=== PATIENT | male | born 1940 | race Caucasian/White ===

== ENCOUNTER 2017-05-26 06:40 | Emergency (ER) | payer MEDICARE, OTHER ==
[2017-05-26] MEDS ORDERED: Triple Antibiotic 0.94 gm Pkt TP ONE ×3 (07:06→11:33)
[2017-05-26] MEDS ORDERED: Triple Antibiotic 0.94 gm Pkt TP STA ×2 (07:14→11:23)
[2017-05-26] MEDS ORDERED: cefTRIAXone 1 GM in Sodium Chloride 0.9% 50 ML IV ONE (07:51)
[2017-05-26 08:11] LABS: % EOSINOPHILS 1.9 % (0.0-5.0); % LYMPHOCYTES 12.9 % (20.0-50.0); % MONOCYTES 7.1 % (2.0-10.0); % NEUTROPHILS 78.1 % (40.0-80.0); HEMATOCRIT 44.9 % (41.0-60); HEMOGLOBIN 15.1 gm/dL (12-16); MEAN CORPUSCULAR HEMOGLOBIN 29.3 pg (27.0-31.0); MEAN CORPUSCULAR HGB CONC 33.7 pg (28.0-36.0); MEAN PLATELET VOLUME 8.1 fl; NEUTROPHILE ABSOLUTE 4.5 Th/cmm (1.8-8.0); PLATELET COUNT 155 Th/cmm (150-400); RED BLOOD COUNT 5.16 Mil/cmm (3.80-5.80); RED CELL DISTRIBUTION WIDTH 13.4 % (11.5-20.0); WHITE BLOOD COUNT 5.7 Th/cmm (4.8-10.8)
[2017-05-26 08:16] LABS: INR 0.92 (0.5-1.4); PROTHROMBIN TIME (TEST) 9.6 SECONDS (9.5-11.5)
--- NOTE | 2017-05-26 08:31 | Diagnostic Imaging Report ---
CHEST X-RAY: AP view INDICATION: pain COMPARISON: None FINDINGS: There is incomplete visualization of the left costophrenic angle. There is no focal consolidation or pleural effusions The heart is normal in size. The osseous structures demonstrate no acute abnormalities. IMPRESSION: No focal airspace consolidation identified.
[2017-05-26 08:37] LABS: ALB/GLOB RATIO 1.8 (1.0-1.8); ALKALINE PHOSPHATASE 78 U/L (34-104); ANION GAP 8.9 (7.0-16.0); BILIRUBIN,TOTAL 0.8 mg/dL (0.3-1.0); BUN - UREA NITROGEN 19 mg/dL (7-25); BUN/CREATININE RATIO 17.3; CALCIUM SERUM 9.3 mg/dL (8.6-10.3); CARBON DIOXIDE 28.3 mEq/L (21.0-31.0); CHLORIDE 106 mEq/L (98-107); CHOLESTEROL 181 mg/dL (<200); CREATININE - SERUM 1.1 mg/dL (0.7-1.3); GLUCOSE 107 mg/dL (70-105); POTASSIUM SERUM 4.2 mEq/L (3.5-5.1); SGOT 32 U/L (13-39); SGPT/ALT 28 U/L (7-52); SODIUM SERUM 139 mEq/L (136-145); TRIGLYCERIDES 103 mg/dL (<150)
[2017-05-26 09:38] LABS: CREATINE KINASE MB 8.7 ng/mL (0.6-6.3)
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
--- NOTE | 2017-05-26 09:56 | Diagnostic Imaging Report ---
CT scan of the brain without intravenous contrast HISTORY: Headache, trauma Total DLP equals 548 CTDI equals 31.4 Axial sections were obtained from the base of the skull to the vertex. There is prominence/enlargement of the ventricular system size. Associated enlargement of cerebral sulci and subarachnoid cisterns. Findings are consistent with changes of generalized cerebral atrophy. No acute parenchymal abnormalities. No acute cerebral hemorrhage. Bilateral basal ganglia calcification noted. Hypodensity is seen within the supratentorial white matter regions without mass effect. The findings may be associated with chronic small vessel ischemic disease. No extra-axial masses or abnormal fluid collections. Atherosclerotic calcification is seen within the region of the vertebral and basilar arteries at the base of the skull. IMPRESSION: 1. No acute abnormalities 2. Cerebral atrophy 3. Supratentorial white matter changes that may reflect chronic small vessel ischemic disease
--- NOTE | 2017-05-26 09:57 | Diagnostic Imaging Report ---
CT scan cervical spine HISTORY: Pain, trauma Total DLP equals 523 CTDI equals 23.1 Axial sections were obtained through the cervical spine. Additional sagittal and coronal reformatted images are provided. No acute abnormalities. No fractures. Degenerative changes are noted with hypertrophic spur formation noted about the endplates of C4 and to a greater degree C5, C6, and C7. Narrowing of the C5-6 and C6-7 interspaces. Degenerative changes noted about the odontoid process. The prevertebral soft tissues appear normal. IMPRESSION: 1. No acute abnormalities 2. Degenerative changes
== END 2017-05-26 12:27 | disposition short-term general hospital (02) ==
LOC: ER 06:40
DX: S01.01XA Laceration without foreign body of scalp, initial encounter (principal); S01.311A Laceration without foreign body of right ear, initial encounter; R42 Dizziness and giddiness; I10 Essential (primary) hypertension; N20.0 Calculus of kidney; W22.8XXA Striking against or struck by other objects, initial encounter; Y93.89 Activity, other specified; Y92.89 Other specified places as the place of occurrence of the external cause; Y99.8 Other external cause status
CPT/HCPCS: 99285; 96365; 12002; 12013; 94760; 93005; 71010; 70450; 72125; 84484; 83880; 36415; 85025; 85610; 82550; 82553; 80053; 80061; 90715; J0696 ×2; A4217; J2001; Z7610

== ENCOUNTER 2017-09-30 21:37 | Inpatient (IN) | payer MEDICARE ==
[2017-09-30] MEDS ORDERED: Sodium Chloride 0.9% 1,000 ML IV ONE (22:07)
[2017-09-30] MEDS ORDERED: HYDROmorphone 1 mg/mL 1mL Syr IVP STA (22:09)
[2017-09-30] MEDS ORDERED: HYDROmorphone 1 mg/mL 1mL Syr ONE (22:15)
--- NOTE | 2017-09-30 22:15 | ED Physician Chart ---
ED Chief Complaint/HPI - Patient Information Date Seen:: 09/30/17 Time Seen:: 22:00 Chief Complaint:: abdominal pain History of Present Illness:: At 1400 patient developed mid abdominal pain and bloating. His pain at its maximum was 8 out of 10 and is now 5 out of 10. Patient had a normal bowel movement at 1600. He has had no vomiting or diarrhea. He is not nauseated now. Pain is increased by walking. Allergies:: Allergies Allergy/AdvReac Type Severity Reaction Status Date / Time No Known Allergies Allergy Verified 09/30/17 21:46 Vitals:: Vital Signs - 8 hr 09/30/17 21:40 Temp 98.1 F HR 79 RR 20 BP 107/64 O2 Sat % 96 Historian:: Patient Review:: Nurse's Note Reviewed ED Review of Systems - Review of Systems General/Constitutional: No fever, No chills Skin: No skin lesions Head: No headache Eyes: No loss of vision ENT: No earache Neck: No neck pain, No swelling Cardio Vascular: No chest pain, No palpitations Pulmonary: No SOB GI: No nausea, No vomiting, No diarrhea, Pain G/U: No dysuria, No hematuria Musculoskeletal: No bone or joint pain Endocrine: No polydipsia Psychiatric: Prior psych history, No prior psych history Hematopoietic: Bruising Allergic/Immuno: No urticaria Neurological: No syncope, No focal symptoms ED Past Medical History - Past Medical History Past Medical History: No significant medical hx Family History: HTN Social History: Non Smoker, No Alcohol Surgical History: CABG, other (lithotrypsy) Psychiatricy History: None Family Medical History - Family Member Mother History Unknown: Yes Living Status: ED Physical Exam - Physical Examination General/Constitutional: Well-developed, well-nourished, Alert, No distress Head: Atraumatic Eyes: Lids, conjuctiva normal Skin: Nl inspection, No rash ENMT: External ears, nose nl, Lips, teeth, gums nl Neck: No nuchal rigidity Respiratory: Nl effort/Exclusion, Clear to Auscultation, No Wheeze/Rhonchi/Rales Cardio Vascular: RRR, No murmur, gallop, rubs GI: No organomegaly, No hernia, Normal BS's, Nondistended, No mass/bruits Other GI comments:: Right-sided abdominal tenderness maximum in the right lower quadrant with right lower quadrant rebound tenderness; mild left mid abdominal tenderness; LLQ tenderness with rebound Extremities: No edema Neuro/Psych: Alert/oriented, No focal deficits Misc: Normal back ED Labs/Radiology/EKG Results - Lab Results Comments:: Laboratory Results - last 24 hr 09/30/17 09/30/17 09/30/17 22:10 22:10 22:23 WBC 10.2 D RBC 5.16 Hgb 15.0 Hct 44.6 MCV 86.4 MCH 29.0 MCHC Differential 33.6 RDW 13.9 Plt Count 164 MPV 7.5 Band Neutrophils % 2 Neutrophils (Manual) 87 H Lymphocytes 7 L Monocytes 4 Platelet Estimate ADEQUATE PT 9.9 INR 0.95 PTT (Actin FS) 20.9 L Sodium 133 L Potassium 4.0 Chloride 100 Carbon Dioxide 25.9 Anion Gap 11.1 BUN 23 Creatinine 1.1 Est GFR ( Amer) TNP Est GFR (Non-Af Amer) TNP BUN/Creatinine Ratio 20.9 Glucose 138 H Calcium 8.9 Magnesium 1.6 L Lipase 8 L - Radiology Results Results: CT abdomen and pelvis: Acute perforated sigmoid diverticulitis with free air in the upper abdomen. Severe right hydronephrosis. CXR negative - EKG Interpretations Rate & Rhythm: normal sinus rhythm with a rate of 81 [place]: normal Comments:: 2 flattening in lateral leads ED Assessment - Assessment General Assessment: I talked to . Dr. Rojas will be the admitting physician. I then talked to Dr. Graf who will be the practice consultant ED Septic Shock - . Is Septic Shock (SBP<90, OR Lactate>4 mmol\L) present?: No - <6hrs of presentation: Vital Signs: Vital Signs - 8 hr 09/30/17 21:40 Temp 98.1 F HR 79 RR 20 BP 107/64 O2 Sat % 96 ED Reassessment (Disposition) - Reassessment Reassessment Condition:: Improved - Patient Disposition Admitted to:: Telemetry Admitting Medical Physician:: Vadim Rojas Condition at Disposition:: Stable, Improved
[2017-09-30 22:17] LABS: HEMATOCRIT 44.6 % (41.0-60); MANUAL DIFF REQUIRED? YES; MEAN CELL VOLUME 86.4 fl (80-99); MEAN CORPUSCULAR HGB CONC 33.6 pg (28.0-36.0); MEAN PLATELET VOLUME 7.5 fl; PLATELET COUNT 164 Th/cmm (150-400); RED BLOOD COUNT 5.16 Mil/cmm (3.80-5.80); RED CELL DISTRIBUTION WIDTH 13.9 % (11.5-20.0)
[2017-09-30 22:20] LABS: WHITE BLOOD COUNT 10.2 Th/cmm (4.8-10.8)
[2017-09-30 22:39] LABS: INR 0.95 (0.5-1.4); PROTHROMBIN TIME (TEST) 9.9 SECONDS (9.5-11.5)
[2017-09-30 22:40] LABS: ANION GAP 11.1 (7.0-16.0); BUN - UREA NITROGEN 23 mg/dL (7-25); CALCIUM SERUM 8.9 mg/dL (8.6-10.3); CARBON DIOXIDE 25.9 mEq/L (21.0-31.0); CHLORIDE 100 mEq/L (98-107); CREATININE - SERUM 1.1 mg/dL (0.7-1.3); GLUCOSE 138 mg/dL (70-105); LIPASE 8 U/L (11-82); MAGNESIUM 1.6 mg/dL (1.9-2.7); SODIUM SERUM 133 mEq/L (136-145)
[2017-09-30 22:47] LABS: BAND NEUTROPHILE 2 % (0-10); LYMPHOCYTE 7 % (20-50); MONOCYTE 4 % (2-10); NEUTROPHILS 87 % (40-80); PLATELET ESTIMATE ADEQUATE (NORMAL); TOTAL CELLS COUNTED 100
[2017-09-30] MEDS ORDERED: Mag Sulfate 2gm/50mL Premix 2 GM/50 ML BAG IV ONE ×2 (23:03→23:06)
[2017-09-30] MEDS ORDERED: metroNIDAZOLE 500mg/NS 100mL 500 MG/100 ML BAG IV ONE ×2 (23:22→23:47)
[2017-09-30] MEDS ORDERED: Piperacillin Sodium/Tazobact 3.375 gm Vial IV ONE (23:47)
[2017-10-01] MEDS ORDERED: D5-0.9%NS 1,000 ML IV ONE (00:40)
[2017-10-01] MEDS: D5-0.9%NS 1,000 ML IV SCH ×2 (01:15→14:22)
[2017-10-01 03:07] VITALS: BP 142/66
[2017-10-01] MEDS: Morphine Sulfate 2 mg/mL 1mL Syr IVP PRN ×3 (03:51→22:40)
[2017-10-01] MEDS ORDERED: metroNIDAZOLE 500mg/NS 100mL 500 MG/100 ML BAG IV ONE (04:06)
[2017-10-01] MEDS: metroNIDAZOLE 500mg/NS 100mL 500 MG in Premix Fluid 1 BAG IV SCH ×3 (04:33→21:10)
[2017-10-01 06:31] LABS: URINE MICROSCOPIC INDICATED? YES; URINE SOURCE RANDOM
[2017-10-01 06:42] LABS: URINE BILIRUBIN NEGATIVE (NEGATIVE); URINE BLOOD NEGATIVE (NEGATIVE); URINE GLUCOSE (UA) NEGATIVE (NEGATIVE); URINE KETONE NEGATIVE (NEGATIVE); URINE LEUKOCYTE ESTERASE NEGATIVE (NEGATIVE); URINE NITRATE NEGATIVE (NEGATIVE); URINE PH 5.5 (4.6 - 8.0); URINE PROTEIN NEGATIVE (NEGATIVE); URINE UROBILINOGEN 0.2 E.U./dL (0.2 - 1.0)
[2017-10-01 06:44] LABS: URINE CLARITY CLEAR (CLEAR); URINE COLOR YELLOW
[2017-10-01 06:47] LABS: URINE BACTERIA OCCASIONAL /hpf (NONE SEEN); URINE EPITHELIAL CELLS FEW /lpf (FEW); URINE RBC 0-2 /hpf (0-5); URINE WBC 0-2 /hpf (0-5)
--- NOTE | 2017-10-01 07:58 | Diagnostic Imaging Report ---
Portable chest x-ray Time: 2240 hours History: Pain Allowing for portable technique the heart size is normal. No focal pulmonary parenchymal processes. No hilar or mediastinal abnormalities. Impression: No acute abnormalities.
--- NOTE | 2017-10-01 08:09 | Diagnostic Imaging Report ---
Exam: CT examination abdomen pelvis. HISTORY: Appendicitis. Total DLP equals 439 CTDI equals 9.2 Findings: Multiple contiguous thin section of the abdomen pelvis obtained from lower thorax to pubic symphysis without the administration of contrast material. No prior studies available comparison. The study demonstrates normal aeration of the lung parenchyma the bases The liver and spleen intact. The pancreas is normal. The gallbladder is distended. There is evidence of bilateral nephrolithiasis with right-sided hydronephrosis with abrupt transition at the ureteropelvic junction might represent obstruction or stricture. There is evidence of punctate free air collection in the left lower abdomen. The appendix is not visualized. There is evidence of diverticulosis and diverticulitis of sigmoid colon the extraluminal air collection suggestive of perforation. Small amount of free air is noted in the upper abdomen. Uterine bladder is intact. Bony structures demonstrate no evidence evidence for lytic or blastic process. IMPRESSION: 1. Diverticulitis of sigmoid colon with possible perforation and free collection of air in the upper and mid abdomen. 2. Severe right-sided hydronephrosis. 3. Bilateral nephrolithiasis.
--- NOTE | 2017-10-01 08:46 | General Progress Note ---
Subjective - Review of Systems Service Date: 10/01/17 Events since last encounter: consult dictated informed consent discussed with patient regarding CT scan report Plan: exp lap with possible sigmoid resection, diverting colostomy or ileostomy Objective - Results Result Diagrams: 09/30/17 22:10 09/30/17 22:10 Recent Labs: Laboratory Last Values WBC 10.2 Th/cmm (4.8-10.8) D 09/30/17 22:10 RBC 5.16 Mil/cmm (3.80-5.80) 09/30/17 22:10 Hgb 15.0 gm/dL (12-16) 09/30/17 22:10 Hct 44.6 % (41.0-60) 09/30/17 22:10 MCV 86.4 fl (80-99) 09/30/17 22:10 MCH 29.0 pg (27.0-31.0) 09/30/17 22:10 MCHC Differential 33.6 pg (28.0-36.0) 09/30/17 22:10 RDW 13.9 % (11.5-20.0) 09/30/17 22:10 Plt Count 164 Th/cmm (150-400) 09/30/17 22:10 MPV 7.5 fl 09/30/17 22:10 Band Neutrophils % 2 % (0-10) 09/30/17 22:10 Neutrophils (Manual) 87 % (40-80) H 09/30/17 22:10 Lymphocytes 7 % (20-50) L 09/30/17 22:10 Monocytes 4 % (2-10) 09/30/17 22:10 Platelet Estimate ADEQUATE (NORMAL) 09/30/17 22:10 PT 9.9 SECONDS (9.5-11.5) 09/30/17 22:23 INR 0.95 (0.5-1.4) 09/30/17 22:23 PTT (Actin FS) 20.9 SECONDS (26.0-38.0) L 09/30/17 22:23 Sodium 133 mEq/L (136-145) L 09/30/17 22:10 Potassium 4.0 mEq/L (3.5-5.1) 09/30/17 22:10 Chloride 100 mEq/L (98-107) 09/30/17 22:10 Carbon Dioxide 25.9 mEq/L (21.0-31.0) 09/30/17 22:10 Anion Gap 11.1 (7.0-16.0) 09/30/17 22:10 BUN 23 mg/dL (7-25) 09/30/17 22:10 Creatinine 1.1 mg/dL (0.7-1.3) 09/30/17 22:10 Est GFR ( Amer) TNP 09/30/17 22:10 Est GFR (Non-Af Amer) TNP 09/30/17 22:10 BUN/Creatinine Ratio 20.9 09/30/17 22:10 Glucose 138 mg/dL (70-105) H 09/30/17 22:10 Calcium 8.9 mg/dL (8.6-10.3) 09/30/17 22:10 Magnesium 1.6 mg/dL (1.9-2.7) L 09/30/17 22:10 Lipase 8 U/L (11-82) L 09/30/17 22:10 Urine Source RANDOM 10/01/17 06:06 Urine Color YELLOW 10/01/17 06:06 Urine Clarity CLEAR (CLEAR) 10/01/17 06:06 Urine pH 5.5 (4.6 - 8.0) 10/01/17 06:06 Ur Specific [place] 1.020 (1.005-1.030) 10/01/17 06:06 Urine Protein NEGATIVE mg/dL (NEGATIVE) 10/01/17 06:06 Urine Glucose (UA) NEGATIVE mg/dL (NEGATIVE) 10/01/17 06:06 Urine Ketones NEGATIVE mg/dL (NEGATIVE) 10/01/17 06:06 Urine Blood NEGATIVE (NEGATIVE) 10/01/17 06:06 Urine Nitrate NEGATIVE (NEGATIVE) 10/01/17 06:06 Urine Bilirubin NEGATIVE (NEGATIVE) 10/01/17 06:06 Urine Urobilinogen 0.2 E.U./dL (0.2 - 1.0) 10/01/17 06:06 Ur Leukocyte Esterase NEGATIVE (NEGATIVE) 10/01/17 06:06 Urine RBC 0-2 /hpf (0-5) H 10/01/17 06:06 Urine WBC 0-2 /hpf (0-5) 10/01/17 06:06 Ur Epithelial Cells FEW /lpf (FEW) 10/01/17 06:06 Urine Bacteria OCCASIONAL /hpf (NONE SEEN) 10/01/17 06:06 Urine Mucus FEW /lpf (FEW) 10/01/17 06:06 - Physical Exam Vitals and I&O: Vital Signs Temp 99.2 F 10/01/17 07:37 Pulse 92 10/01/17 07:37 Resp 17 10/01/17 07:37 BP 119/64 10/01/17 07:37 Pulse Ox 95 10/01/17 07:37 Intake & Output 09/30/17 10/01/17 10/01/17 18:59 06:59 18:59 Weight (lbs) 76.005 kg Other: Stool Characteristics Formed Active Medications: Current Medications Metronidazole 500 mg/ (Miscellaneous) 100 mls @ 100 mls/hr IV Q8HR FLAVIO Stop: 11/30/17 04:59 Last Admin: 10/01/17 04:33 Dose: 100 mls/hr Piperacillin Sod/Tazobactam (Sod 4.5 gm/ Sodium Chloride) 100 mls @ 100 mls/hr IV Q8HR FLAVIO Stop: 11/30/17 04:59 Last Admin: 10/01/17 06:08 Dose: 100 mls/hr Dextrose/Sodium Chloride (D5-0.9%Ns) 1,000 mls @ 100 mls/hr IV .Q10H FLAVIO Stop: 11/30/17 00:59 Last Admin: 10/01/17 01:15 Dose: 100 mls/hr Morphine Sulfate (Morphine) 2 mg IVP Q2H PRN PRN Reason: Abdominal Pain Stop: 11/30/17 00:39 Last Admin: 10/01/17 03:51 Dose: 2 mg
--- NOTE | 2017-10-01 09:52 | Consultation ---
DATE OF CONSULTATION: 10/01/2017 SURGICAL CONSULTATION REFERRING PHYSICIAN: Dr. Rojas. REASON FOR CONSULTATION: Abdominal pain. Thank you for referring this patient to me. HISTORY OF PRESENT ILLNESS: This is a 76-year-old male who came in last night because of severe abdominal pain. Pain was mostly in lower abdomen. Afternoon before he came to the Emergency Room, he complained of discomfort on the way home from a drive in [place] to his home in [place]. The pain became severe and he had some chills and his brother drove him home. He denies previous similar history, although he does have a previous episode of kidney stones treated by lithotripsy. Otherwise, he takes a medication for anxiety, but no other. On admission, the laboratory studies show the CBC and chemistry to be normal. A CT scan, however, showed findings consistent with a perforated diverticulitis in the sigmoid region with a small amount of free air in the upper abdomen, diverticulosis with diverticulitis in the sigmoid colon with the extraluminal air collection. PHYSICAL EXAMINATION: GENERAL: The patient is well oriented. He has just been medicated with narcotics and there remains tenderness in the left and right lower quadrants of the abdomen with moderate rebound. Otherwise, the abdomen is flat and soft. RECOMMENDATIONS: The patient was told about his diagnosis and the recommended treatment, which is an exploration, possible resection of the areas of diverticulosis and diverticulitis and a possible reanastomosis. The chance of colostomy was discussed with him and he has agreed to this as well. The patient is on Zosyn now and Flagyl. We will take to surgery as soon as possible. JOB# [id number]
[2017-10-01] MEDS ORDERED: Propofol 10 mg/mL 20mL Vial **SURGERY USE ONLY IV ONE (11:00)
[2017-10-01] MEDS ORDERED: HYDROmorphone 1 mg/mL 1mL Syr ONE ×2 (11:12→13:44)
[2017-10-01 14:46] LABS: % BASOPHILS 0.2 % (0.0-2.0); % EOSINOPHILS 0.1 % (0.0-5.0); % LYMPHOCYTES 5.9 % (20.0-50.0); % MONOCYTES 3.9 % (2.0-10.0); % NEUTROPHILS 89.9 % (40.0-80.0); HEMOGLOBIN 13.1 gm/dL (12-16); LYMPHOCYTE ABSOLUTE 0.6 Th/cmm (1.5-3.0); MEAN CELL VOLUME 87.2 fl (80-99); MEAN CORPUSCULAR HEMOGLOBIN 28.8 pg (27.0-31.0); MEAN PLATELET VOLUME 7.6 fl; MONOCYTE ABSOLUTE 0.4 Th/cmm (0.3-1.0); NEUTROPHILE ABSOLUTE 8.7 Th/cmm (1.8-8.0); PLATELET COUNT 138 Th/cmm (150-400); RED BLOOD COUNT 4.55 Mil/cmm (3.80-5.80); RED CELL DISTRIBUTION WIDTH 13.5 % (11.5-20.0); WHITE BLOOD COUNT 9.7 Th/cmm (4.8-10.8)
[2017-10-01 14:53] LABS: HEMATOCRIT 39.7 % (41.0-60)
[2017-10-01] MEDS ORDERED: Ipratropium Neb 0.5 mg/2.5 mL UD IH PRN (15:25)
[2017-10-01] MEDS ORDERED: Albuterol Nebulizer 2.5mg/3mL HHN PRN (15:25)
[2017-10-01] MEDS ORDERED: Albuterol/Ipratropium Neb 3 ML AERS HHN PRN (15:32)
--- NOTE | 2017-10-01 16:40 | Consultation ---
DATE OF CONSULTATION: 10/01/2017 UROLOGY CONSULTATION REASON FOR CONSULTATION: Seen for right hydronephrosis. HISTORY OF PRESENT ILLNESS: The patient is a 76-year-old gentleman, who was admitted with abdominal pain and found to have perforated diverticulitis. He has just come out of surgery, which was diverting colostomy. At the same time, the CT scan showed severe right hydronephrosis without any stones, but with possible UPJ obstruction and a nonobstructing stone in the left side size 2-3 mm. The patient is in recovery, unable to provide much history, and there were no family members at this time. REVIEW OF SYSTEMS: Came in without fever or chills, skin problems, no joint pains. Denied headache or seizures. No chest pain, coughing, or shortness of breath. Abdominal pain was severe, but without any vomiting or diarrhea. HOME MEDICATIONS: Prozac only. ALLERGIES: None. PAST SURGICAL HISTORY: The patient had a coronary bypass procedure and stone out surgery with lithotripsy. FAMILY HISTORY: Positive for hypertension, unknown for stone. SOCIAL HISTORY: Denies smoking, alcohol, or drug use. PHYSICAL EXAMINATION: GENERAL: The patient is in the recovery room, come out of anesthesia, still drowsy. VITAL SIGNS: Temperature 98.9 earlier today, heart rate 90, blood pressure 147/74, preop. HEAD AND NECK: Normocephalic. Trachea central. Pupils equal and reactive. No jaundice. Thyroid and lymph nodes not palpable. Carotid bruit absent. CHEST: Symmetrical. LUNGS: Clear. No rales or rhonchi. HEART: Sounds normal in sinus rhythm, no murmur. ABDOMEN: Post-surgical, difficult to examine. EXTREMITIES: No edema or lymphadenopathy. NEUROLOGIC: Nonfocal. LABS: CT scan shows a severe right hydronephrosis. Sodium 133, BUN 23, creatinine 1.1, magnesium 1.6. PT/INR 0.9. White count 10.2, hemoglobin 15, platelets 164. Urinalysis, no evidence of infection, blood, or abnormalities of any kind. CT scan also showed perforated diverticulosis. IMPRESSION: 1. History of bilateral stone disease, possibly surgical treatment in the past. Presently, right hydronephrosis may be congenital at the ureteropelvic junction or acquired from stone disease and surgery. He has normal renal function. 2. Diverticulitis with perforation, now with a diverting colostomy. RECOMMENDATIONS: Recommend no active treatment at this point. We will obtain more urologic details once he is awake and alert and from his family members to decide if the right-sided hydronephrosis requires stent or surgery or simple observation. This can also be determined with the help of a nuclear Lasix scan. JOB# [id number]
--- NOTE | 2017-10-01 16:51 | Operative Report ---
DATE OF SURGERY: 10/01/2017 PREOPERATIVE DIAGNOSES: 1. Perforated sigmoid diverticulitis. 2. Ureteral stone. POSTOPERATIVE DIAGNOSES: 1. Perforated sigmoid diverticulitis. 2. Ureteral stone. OPERATION DONE: Exploratory laparotomy with: 1. Resection of sigmoid colon. 2. Gerald's pouch. 3. Diverting colostomy. 4. Abdominal washout. SURGEON: Ben Graf M.D. ANESTHESIA: General : Deo ESTIMATED BLOOD LOSS: 50 mL. INDICATIONS FOR SURGERY: The patient with perforated diverticulitis on a CT scan. Additional information includes the patient having had a history of kidney stones and on this CT scan, which shows bilateral nephrolithiasis with right-sided hydronephrosis and a transition at the ureteropelvic junction, probably with obstruction. Informed consent discussed with the patient and the brother about the need for the exploration and the surgery. Depending on the findings, might do anastomosis and/or diverting colostomy or ileostomy. OPERATIVE FINDINGS: Perforation in the sigmoid colon with diverticular disease extending into the descending colon and to the promontory of the sacrum. This section was removed about a foot in length. Because of the gross contamination, it was decided not to do a primary anastomosis for fear because of the higher incidence of anastomotic leak. Cultures were taken. PROCEDURE: The patient was given general anesthesia. The abdomen was prepped with Betadine and draped in appropriate manner. A lower abdominal incision below this umbilicus to the suprapubic area was done. A Szymanski catheter is in place. The incision was carried all the way into the intraabdominal cavity. There was purulent drainage in the pelvic area at site of the sigmoid perforation and photograph was taken. The diverticular disease extending to the mid descending colon and to the promontory of the sacrum. A ELADIA instrument was used to transect the distal sigmoid and the distal end. Staple line was reinforced with 3-0 silk. With the use of an Impact instrument, the mesentery was transected until the limit of the upper diverticular disease. The descending colon was then transected and the descending colon end was brought out as a colostomy in the left lower quadrant of the abdomen. Wash out with antibiotic solution was carried out. A Jairo-Wray drain was left in the pelvis. The colon was sutured to the anterior abdominal wall utilizing 3-0 silk and the lateral margins of the mesentery were sutured to the anterior abdominal wall and laterally utilizing 3-0 silk to prevent internal herniation. The abdominal incision was closed with running suture of #1 PDS. The subcutaneous tissues were closed with 3-0 Vicryl and the skin with 4-0 Vicryl. Dermabond was placed over this. The colostomy was matured utilizing everting suture of 4-0 Vicryl. A colostomy bag was placed over this. The patient tolerated the procedure well. In view of the right ureteral obstruction, urology consultation, Dr. Barros has been ordered. JOB# [id number] [facility]
--- NOTE | 2017-10-01 22:20 | History & Physical ---
ADMIT DATE: 10/01/2017 CHIEF COMPLAINT: Abdominal pain. HISTORY OF PRESENT ILLNESS: This is a 76-year-old male with history of blood pressure, not on medication and depression, was admitted secondary to acute onset of abdominal pain and discomfort. The patient got dizzy just about to pass out. The patient was brought in to the ER, a CT showed perforated bowel. The patient was taken to the Emergency Room for surgery. PAST MEDICAL HISTORY: As mentioned in history present illness. PAST SURGICAL HISTORY: Status post kidney surgery in the past. ALLERGIES: No known drug allergies. MEDICATIONS: Fluoxetine. FAMILY HISTORY: Denies diabetes or coronary artery disease. SOCIAL HISTORY: Never smoked. Occasional alcohol. No intravenous drug use. 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 REVIEW OF SYSTEMS: GENERAL: The patient denies any ____ symptoms prior to being sick. HEENT: No blurred vision. LUNGS: No diagnosis of COPD or asthma. HEART: Denies hypertension or coronary artery disease. ABDOMEN: As mentioned above. NEUROLOGIC: No headache, seizure or syncope. PSYCHIATRIC: As stated above, the patient with depression. PHYSICAL EXAMINATION: VITAL SIGNS: Blood pressure 147/74, respirations 18, pulse 90, temperature 99. GENERAL: Elderly male, appears stated age. NECK: Supple. No mass. LUNGS: Equal breath sounds, few rhonchi. HEART: Regular rate and rhythm. Systolic ejection murmur. ABDOMEN: Soft, globular. Positive colostomy. EXTREMITIES: Positive excoriations. LABORATORY DATA: WBC 9.7, hemoglobin 13, platelets 138. INR 0.9. Sodium 133, potassium 4.0, BUN 22, creatinine 1.1, and magnesium 1.6. ASSESSMENT AND PLAN: Abdominal pain, perforated bowel, status post resection and colostomy, ____, positive for kidney stone, hyponatremia, thrombocytopenia. We will continue the patient on IV antibiotic, IV hydration, IV pain medication. Surgery is following. We also referred the patient to Urology. Continue with current care with followup consult recommendations. Case was discussed with the family and agreed. JOB# [id number]
[2017-10-02] MEDS: D5-0.9%NS 1,000 ML IV SCH ×2 (04:45→18:59)
[2017-10-02] MEDS: metroNIDAZOLE 500mg/NS 100mL 500 MG in Premix Fluid 1 BAG IV SCH ×3 (05:37→21:41)
[2017-10-02 06:05] LABS: % BASOPHILS 0.3 % (0.0-2.0); % EOSINOPHILS 0.8 % (0.0-5.0); % LYMPHOCYTES 9.6 % (20.0-50.0); % MONOCYTES 4.4 % (2.0-10.0); % NEUTROPHILS 84.9 % (40.0-80.0); EOSINOPHILE ABSOLUTE 0.1 Th/cmm (0.1-0.4); HEMATOCRIT 38.7 % (41.0-60); HEMOGLOBIN 13.1 gm/dL (12-16); LYMPHOCYTE ABSOLUTE 0.6 Th/cmm (1.5-3.0); MEAN CELL VOLUME 88.1 fl (80-99); MEAN CORPUSCULAR HEMOGLOBIN 29.7 pg (27.0-31.0); MEAN CORPUSCULAR HGB CONC 33.8 pg (28.0-36.0); MEAN PLATELET VOLUME 7.7 fl; MONOCYTE ABSOLUTE 0.3 Th/cmm (0.3-1.0); NEUTROPHILE ABSOLUTE 5.5 Th/cmm (1.8-8.0); PLATELET COUNT 125 Th/cmm (150-400); RED CELL DISTRIBUTION WIDTH 13.9 % (11.5-20.0)
[2017-10-02 06:29] LABS: WHITE BLOOD COUNT 6.5 Th/cmm (4.8-10.8)
[2017-10-02 06:54] LABS: ALB/GLOB RATIO 1.5 (1.0-1.8); ALBUMIN 3.2 gm/dL (4.2-5.5); ALKALINE PHOSPHATASE 63 U/L (34-104); ANION GAP 8.3 (7.0-16.0); BILIRUBIN,TOTAL 0.7 mg/dL (0.3-1.0); BUN - UREA NITROGEN 14 mg/dL (7-25); CALCIUM SERUM 7.6 mg/dL (8.6-10.3); CARBON DIOXIDE 25.4 mEq/L (21.0-31.0); CHLORIDE 107 mEq/L (98-107); GLUCOSE 118 mg/dL (70-105); POTASSIUM SERUM 3.7 mEq/L (3.5-5.1); SGOT 17 U/L (13-39); SGPT/ALT 14 U/L (7-52); SODIUM SERUM 137 mEq/L (136-145); TOTAL PROTEIN,SERUM 5.4 gm/dL (6.0-8.3)
[2017-10-02] MEDS: Morphine Sulfate 2 mg/mL 1mL Syr IVP PRN ×5 (08:13→18:59)
--- NOTE | 2017-10-02 10:05 | General Progress Note ---
Subjective - Review of Systems Service Date: 10/02/17 Events since last encounter: labs noted clear liquids po complaining of right lower quadrant pain Urology consult noted Objective - Results Result Diagrams: 10/02/17 05:40 10/02/17 05:40 Recent Labs: Laboratory Last Values WBC 6.5 Th/cmm (4.8-10.8) D 10/02/17 05:40 RBC 4.40 Mil/cmm (3.80-5.80) 10/02/17 05:40 Hgb 13.1 gm/dL (12-16) 10/02/17 05:40 Hct 38.7 % (41.0-60) L 10/02/17 05:40 MCV 88.1 fl (80-99) 10/02/17 05:40 MCH 29.7 pg (27.0-31.0) 10/02/17 05:40 MCHC Differential 33.8 pg (28.0-36.0) 10/02/17 05:40 RDW 13.9 % (11.5-20.0) 10/02/17 05:40 Plt Count 125 Th/cmm (150-400) L 10/02/17 05:40 MPV 7.7 fl 10/02/17 05:40 Neutrophils % 84.9 % (40.0-80.0) H 10/02/17 05:40 Band Neutrophils % 2 % (0-10) 09/30/17 22:10 Lymphocytes % 9.6 % (20.0-50.0) L 10/02/17 05:40 Monocytes % 4.4 % (2.0-10.0) 10/02/17 05:40 Eosinophils % 0.8 % (0.0-5.0) 10/02/17 05:40 Basophils % 0.3 % (0.0-2.0) 10/02/17 05:40 Neutrophils (Manual) 87 % (40-80) H 09/30/17 22:10 Lymphocytes 7 % (20-50) L 09/30/17 22:10 Monocytes 4 % (2-10) 09/30/17 22:10 Platelet Estimate ADEQUATE (NORMAL) 09/30/17 22:10 PT 9.9 SECONDS (9.5-11.5) 09/30/17 22:23 INR 0.95 (0.5-1.4) 09/30/17 22:23 PTT (Actin FS) 20.9 SECONDS (26.0-38.0) L 09/30/17 22:23 Sodium 137 mEq/L (136-145) 10/02/17 05:40 Potassium 3.7 mEq/L (3.5-5.1) 10/02/17 05:40 Chloride 107 mEq/L (98-107) 10/02/17 05:40 Carbon Dioxide 25.4 mEq/L (21.0-31.0) 10/02/17 05:40 Anion Gap 8.3 (7.0-16.0) 10/02/17 05:40 BUN 14 mg/dL (7-25) 10/02/17 05:40 Creatinine 1.0 mg/dL (0.7-1.3) 10/02/17 05:40 Est GFR ( Amer) TNP 10/02/17 05:40 Est GFR (Non-Af Amer) TNP 10/02/17 05:40 BUN/Creatinine Ratio 14.0 10/02/17 05:40 Glucose 118 mg/dL (70-105) H 10/02/17 05:40 POC Glucose 133 MG/DL (70 - 105) H 10/01/17 09:17 Calcium 7.6 mg/dL (8.6-10.3) L 10/02/17 05:40 Magnesium 1.6 mg/dL (1.9-2.7) L 09/30/17 22:10 Total Bilirubin 0.7 mg/dL (0.3-1.0) 10/02/17 05:40 AST 17 U/L (13-39) 10/02/17 05:40 ALT 14 U/L (7-52) 10/02/17 05:40 Alkaline Phosphatase 63 U/L (34-104) 10/02/17 05:40 Total Protein 5.4 gm/dL (6.0-8.3) L 10/02/17 05:40 Albumin 3.2 gm/dL (4.2-5.5) L 10/02/17 05:40 Globulin 2.2 gm/dL 10/02/17 05:40 Albumin/Globulin Ratio 1.5 (1.0-1.8) 10/02/17 05:40 Lipase 8 U/L (11-82) L 09/30/17 22:10 Urine Source RANDOM 10/01/17 06:06 Urine Color YELLOW 10/01/17 06:06 Urine Clarity CLEAR (CLEAR) 10/01/17 06:06 Urine pH 5.5 (4.6 - 8.0) 10/01/17 06:06 Ur Specific [place] 1.020 (1.005-1.030) 10/01/17 06:06 Urine Protein NEGATIVE mg/dL (NEGATIVE) 10/01/17 06:06 Urine Glucose (UA) NEGATIVE mg/dL (NEGATIVE) 10/01/17 06:06 Urine Ketones NEGATIVE mg/dL (NEGATIVE) 10/01/17 06:06 Urine Blood NEGATIVE (NEGATIVE) 10/01/17 06:06 Urine Nitrate NEGATIVE (NEGATIVE) 10/01/17 06:06 Urine Bilirubin NEGATIVE (NEGATIVE) 10/01/17 06:06 Urine Urobilinogen 0.2 E.U./dL (0.2 - 1.0) 10/01/17 06:06 Ur Leukocyte Esterase NEGATIVE (NEGATIVE) 10/01/17 06:06 Urine RBC 0-2 /hpf (0-5) H 10/01/17 06:06 Urine WBC 0-2 /hpf (0-5) 10/01/17 06:06 Ur Epithelial Cells FEW /lpf (FEW) 10/01/17 06:06 Urine Bacteria OCCASIONAL /hpf (NONE SEEN) 10/01/17 06:06 Urine Mucus FEW /lpf (FEW) 10/01/17 06:06 - Physical Exam Vitals and I&O: Vital Signs Temp 99.4 F 10/02/17 07:51 Pulse 82 10/02/17 07:51 Resp 20 10/02/17 07:51 BP 146/70 10/02/17 07:51 Pulse Ox 98 10/02/17 07:51 Intake & Output 10/01/17 10/02/17 10/02/17 18:59 06:59 18:59 Intake Total 1550 1200 Output Total 380 Balance 1170 1200 Weight (lbs) 76.005 kg Intake: Intake, IV Amount 1300 1200 D5-0.9%Ns 1,000 ml @ 100 1000 1000 mls/hr IV .Q10H [facility] Rx#: [id number] Piperacillin Sodium/ 200 100 Tazobact 4.5 gm In Sodium Chloride 0.9% 100 ml @ 100 mls/hr IV Q8HR [facility] Rx #:[id number] metroNIDAZOLE 500mg/NS 100 100 100mL 500 mg In Premix Fluid 1 bag @ 100 mls/hr IV Q8HR [facility] Rx#:[id number] Oral 250 Output: Urine 350 Other 30 Other: # Voids 2 # Bowel Movements 0 Active Medications: Current Medications Acetaminophen (Tylenol) 650 mg PO Q4H PRN PRN Reason: Pain Or Fever above 101 Stop: 11/30/17 15:24 Albuterol/Ipratropium (Duoneb Neb) 3 ml HHN Q2HRT PRN PRN Reason: Shortness of Breath or Wheeze Stop: 11/30/17 15:31 Metronidazole 500 mg/ (Miscellaneous) 100 mls @ 100 mls/hr IV Q8HR [facility] Stop: 11/30/17 04:59 Last Admin: 10/02/17 05:37 Dose: 100 mls/hr Piperacillin Sod/Tazobactam (Sod 4.5 gm/ Sodium Chloride) 100 mls @ 100 mls/hr IV Q8HR [facility] Stop: 11/30/17 04:59 Last Admin: 10/02/17 06:27 Dose: 100 mls/hr Dextrose/Sodium Chloride (D5-0.9%Ns) 1,000 mls @ 100 mls/hr IV .Q10H [facility] Stop: 11/30/17 00:59 Last Admin: 10/02/17 04:45 Dose: 100 mls/hr Morphine Sulfate (Morphine) 2 mg IVP Q2H PRN PRN Reason: Abdominal Pain Stop: 11/30/17 00:39 Last Admin: 10/02/17 08:13 Dose: 2 mg Ondansetron HCl (Zofran) 4 mg IV Q8H PRN PRN Reason: Nausea / Vomiting Stop: 11/30/17 15:24 Zolpidem Tartrate (Ambien) 10 mg PO HS PRN PRN Reason: Insomnia Stop: 11/30/17 15:24
--- NOTE | 2017-10-02 10:20 | Consultation ---
Consult Note - Consult Note Service Date: 10/02/17 Referring Physician: Ben Graf Consult Note: PHYSICIAN Consultation Note: Date of Admission: 09/30/17 Purpose of Consultation: peritonitis, diverticulitis. right sided hydronephrosis. Chief Complaint: Patient DARRYL NORRIS was admitted to [facility] Telemetry with PERFORATED BOWEL History of Present Illness: 76 year male with history of HTN, depression, presented with abdominal pain. CT scan of the abdomen revealed perforated diveritcutlitis andright sided hydronephrosis. Zosyn was started and exploratory laparotomy was performed. ID consult was called for antibiotic management. . Past Medical History: Allergies Allergy/AdvReac Type Severity Reaction Status Date / Time No Known Allergies Allergy Verified 09/30/17 21:46 Vital Signs Temp 99.4 F 10/02/17 07:51 Pulse 82 10/02/17 07:51 Resp 20 10/02/17 07:51 BP 146/70 10/02/17 07:51 Pulse Ox 98 10/02/17 07:51 Intake & Output 10/01/17 10/02/17 10/02/17 18:59 06:59 18:59 Intake Total 1550 1200 Output Total 380 Balance 1170 1200 Weight (lbs) 76.005 kg Intake: Intake, IV Amount 1300 1200 D5-0.9%Ns 1,000 ml @ 100 1000 1000 mls/hr IV .Q10H [facility] Rx#: [id number] Piperacillin Sodium/ 200 100 Tazobact 4.5 gm In Sodium Chloride 0.9% 100 ml @ 100 mls/hr IV Q8HR [facility] Rx #:[id number] metroNIDAZOLE 500mg/NS 100 100 100mL 500 mg In Premix Fluid 1 bag @ 100 mls/hr IV Q8HR [facility] Rx#:[id number] Oral 250 Output: Urine 350 Other 30 Other: # Voids 2 # Bowel Movements 0 Laboratory Results - last 24 hr 10/01/17 10/02/17 10/02/17 14:37 05:40 05:40 WBC 9.7 6.5 D RBC 4.55 4.40 Hgb 13.1 13.1 Hct 39.7 L D 38.7 L MCV 87.2 88.1 MCH 28.8 29.7 MCHC Differential 33.0 33.8 RDW 13.5 13.9 Plt Count 138 L 125 L MPV 7.6 7.7 Neutrophils % 89.9 H 84.9 H Lymphocytes % 5.9 L 9.6 L Monocytes % 3.9 4.4 Eosinophils % 0.1 0.8 Basophils % 0.2 0.3 Sodium 137 Potassium 3.7 Chloride 107 Carbon Dioxide 25.4 Anion Gap 8.3 BUN 14 Creatinine 1.0 Est GFR ( Amer) TNP Est GFR (Non-Af Amer) TNP BUN/Creatinine Ratio 14.0 Glucose 118 H Calcium 7.6 L Total Bilirubin 0.7 AST 17 ALT 14 Alkaline Phosphatase 63 Total Protein 5.4 L Albumin 3.2 L Globulin 2.2 Albumin/Globulin Ratio 1.5 Home Medication Medication Instructions Recorded Type FLUoxetine HCL [PROzac] 10 mg PO DAILY 09/30/17 History Current Medications Generic Name Dose Route Start Last Admin Trade Name Freq PRN Reason Stop Dose Admin Acetaminophen 650 mg 10/01/17 15:25 Tylenol PO 11/30/17 15:24 Q4H PRN Pain Or Fever above 101 Albuterol/Ipratropium 3 ml 10/01/17 15:32 Duoneb Neb HHN 11/30/17 15:31 Q2HRT PRN Shortness of Breath or Wheeze Metronidazole 500 mg/ 100 mls @ 100 mls/hr 10/01/17 05:00 10/02/17 05:37 Miscellaneous IV 11/30/17 04:59 100 mls/hr Q8HR [facility] Administration Piperacillin Sod/Tazobactam 100 mls @ 100 mls/hr 10/01/17 05:00 10/02/17 06: 27 Sod 4.5 gm/ Sodium Chloride IV 11/30/17 04:59 100 mls/hr Q8HR [facility] Administration Dextrose/Sodium Chloride 1,000 mls @ 100 mls/hr 10/01/17 01:00 10/02/17 04:45 D5-0.9%Ns IV 11/30/17 00:59 100 mls/hr .Q10H [facility] Administration Morphine Sulfate 2 mg 10/01/17 00:40 10/02/17 08:13 Morphine IVP 11/30/17 00:39 2 mg Q2H PRN Administration Abdominal Pain Ondansetron HCl 4 mg 10/01/17 15:25 Zofran IV 11/30/17 15:24 Q8H PRN Nausea / Vomiting Zolpidem Tartrate 10 mg 10/01/17 15:25 Ambien PO 11/30/17 15:24 HS PRN Insomnia Review of Systems: A 12 point ROS was reviewed with the pertinent positive and negatives noted in the HPI. c/o pain in right lower abdomen. Social History Smoking Status Smoker, status unknown Alcohol Use No Family Medical History Family Medical History Start: 10/01/17 00: 02 Freq: ONCE Status: Active Document 10/01/17 00:02 SHAE (Rec: 10/01/17 05:25 SHAE [id number]) Family Medical History Mother History Unknown Yes Ethnicity Non- Living Status Hx Family Cancer No Hx Family Coronary Artery Disease No Hx Family Congestive Heart Failure No Hx Family Hypertension No Hx Family Stroke No Hx Family Diabetes No Hx Family Seizures No Hx Family Dementia No Hx Family AIDS No Hx Family HIV No Hx Family COPD No Hx Family Hepatitis No Hx Family Psychiatric Problems No Hx Family Tuberculosis No Physical Exam: General: comfortable, not in any acute distress HEENT: Head is normocephalic, atraumatic. oral cavity: moist pink tongue. Eyes: no pallor, no icterus. Neck: Supple, no JVD, no carotid bruit. Cardio: S1, S 2 WNL. Respiratory: CTAP. Abdominal: soft tender mainly in RLQ. surgical wound/incision intact, Luis drain X 1. Colostomy LLQ. Genital/Urinary: Extremities: NCCE Neurological: AAOx3. Assessment: 1. peritonitis 2/2 perforated diverticulitis. 2. Right sided hydronephrosis. 3. s/p exploratory laparotomy and colcotomy. Plan: Continue zosyn at this time. Thank you, Dr Graf and Dr davalos for invovling me in taking care of this patient. Signed, Arisa Weber M.D. [phone]
--- NOTE | 2017-10-02 15:37 | Internal Medicine Prog Note ---
Internal Medicine Subjective - Subjective Service Date: 10/02/17 Patient seen and examined:: with staff Patient is:: awake, verbal Per staff patient has:: no adverse event, tolerating meds Internal Medicine Objective - Results Result Diagrams: 10/02/17 05:40 10/02/17 05:40 Recent Labs: Laboratory Last Values WBC 6.5 Th/cmm (4.8-10.8) D 10/02/17 05:40 RBC 4.40 Mil/cmm (3.80-5.80) 10/02/17 05:40 Hgb 13.1 gm/dL (12-16) 10/02/17 05:40 Hct 38.7 % (41.0-60) L 10/02/17 05:40 MCV 88.1 fl (80-99) 10/02/17 05:40 MCH 29.7 pg (27.0-31.0) 10/02/17 05:40 MCHC Differential 33.8 pg (28.0-36.0) 10/02/17 05:40 RDW 13.9 % (11.5-20.0) 10/02/17 05:40 Plt Count 125 Th/cmm (150-400) L 10/02/17 05:40 MPV 7.7 fl 10/02/17 05:40 Neutrophils % 84.9 % (40.0-80.0) H 10/02/17 05:40 Band Neutrophils % 2 % (0-10) 09/30/17 22:10 Lymphocytes % 9.6 % (20.0-50.0) L 10/02/17 05:40 Monocytes % 4.4 % (2.0-10.0) 10/02/17 05:40 Eosinophils % 0.8 % (0.0-5.0) 10/02/17 05:40 Basophils % 0.3 % (0.0-2.0) 10/02/17 05:40 Neutrophils (Manual) 87 % (40-80) H 09/30/17 22:10 Lymphocytes 7 % (20-50) L 09/30/17 22:10 Monocytes 4 % (2-10) 09/30/17 22:10 Platelet Estimate ADEQUATE (NORMAL) 09/30/17 22:10 PT 9.9 SECONDS (9.5-11.5) 09/30/17 22:23 INR 0.95 (0.5-1.4) 09/30/17 22:23 PTT (Actin FS) 20.9 SECONDS (26.0-38.0) L 09/30/17 22:23 Sodium 137 mEq/L (136-145) 10/02/17 05:40 Potassium 3.7 mEq/L (3.5-5.1) 10/02/17 05:40 Chloride 107 mEq/L (98-107) 10/02/17 05:40 Carbon Dioxide 25.4 mEq/L (21.0-31.0) 10/02/17 05:40 Anion Gap 8.3 (7.0-16.0) 10/02/17 05:40 BUN 14 mg/dL (7-25) 10/02/17 05:40 Creatinine 1.0 mg/dL (0.7-1.3) 10/02/17 05:40 Est GFR ( Amer) TNP 10/02/17 05:40 Est GFR (Non-Af Amer) TNP 10/02/17 05:40 BUN/Creatinine Ratio 14.0 10/02/17 05:40 Glucose 118 mg/dL (70-105) H 10/02/17 05:40 POC Glucose 133 MG/DL (70 - 105) H 10/01/17 09:17 Calcium 7.6 mg/dL (8.6-10.3) L 10/02/17 05:40 Magnesium 1.6 mg/dL (1.9-2.7) L 09/30/17 22:10 Total Bilirubin 0.7 mg/dL (0.3-1.0) 10/02/17 05:40 AST 17 U/L (13-39) 10/02/17 05:40 ALT 14 U/L (7-52) 10/02/17 05:40 Alkaline Phosphatase 63 U/L (34-104) 10/02/17 05:40 Total Protein 5.4 gm/dL (6.0-8.3) L 10/02/17 05:40 Albumin 3.2 gm/dL (4.2-5.5) L 10/02/17 05:40 Globulin 2.2 gm/dL 10/02/17 05:40 Albumin/Globulin Ratio 1.5 (1.0-1.8) 10/02/17 05:40 Lipase 8 U/L (11-82) L 09/30/17 22:10 Urine Source RANDOM 10/01/17 06:06 Urine Color YELLOW 10/01/17 06:06 Urine Clarity CLEAR (CLEAR) 10/01/17 06:06 Urine pH 5.5 (4.6 - 8.0) 10/01/17 06:06 Ur Specific [place] 1.020 (1.005-1.030) 10/01/17 06:06 Urine Protein NEGATIVE mg/dL (NEGATIVE) 10/01/17 06:06 Urine Glucose (UA) NEGATIVE mg/dL (NEGATIVE) 10/01/17 06:06 Urine Ketones NEGATIVE mg/dL (NEGATIVE) 10/01/17 06:06 Urine Blood NEGATIVE (NEGATIVE) 10/01/17 06:06 Urine Nitrate NEGATIVE (NEGATIVE) 10/01/17 06:06 Urine Bilirubin NEGATIVE (NEGATIVE) 10/01/17 06:06 Urine Urobilinogen 0.2 E.U./dL (0.2 - 1.0) 10/01/17 06:06 Ur Leukocyte Esterase NEGATIVE (NEGATIVE) 10/01/17 06:06 Urine RBC 0-2 /hpf (0-5) H 10/01/17 06:06 Urine WBC 0-2 /hpf (0-5) 10/01/17 06:06 Ur Epithelial Cells FEW /lpf (FEW) 10/01/17 06:06 Urine Bacteria OCCASIONAL /hpf (NONE SEEN) 10/01/17 06:06 Urine Mucus FEW /lpf (FEW) 10/01/17 06:06 - Physical Exam Vitals and I&O: Vital Signs Temp 98.3 F 10/02/17 12:04 Pulse 72 10/02/17 12:04 Resp 20 10/02/17 12:04 BP 121/73 10/02/17 12:04 Pulse Ox 96 10/02/17 12:04 Intake & Output 10/01/17 10/02/17 10/02/17 18:59 06:59 18:59 Intake Total 1550 1300 200 Output Total 380 Balance 1170 1300 200 Weight (lbs) 167 lb 9 oz Intake: Intake, IV Amount 1300 1300 200 D5-0.9%Ns 1,000 ml @ 100 1000 1000 mls/hr IV .Q10H [facility] Rx#: [id number] Piperacillin Sodium/ 200 100 100 Tazobact 4.5 gm In Sodium Chloride 0.9% 100 ml @ 100 mls/hr IV Q8HR [facility] Rx #:[id number] metroNIDAZOLE 500mg/NS 100 200 100 100mL 500 mg In Premix Fluid 1 bag @ 100 mls/hr IV Q8HR [facility] Rx#:[id number] Oral 250 Output: Urine 350 Other 30 Other: # Voids 2 # Bowel Movements 0 Active Medications: Current Medications Acetaminophen (Tylenol) 650 mg PO Q4H PRN PRN Reason: Pain Or Fever above 101 Stop: 11/30/17 15:24 Albuterol/Ipratropium (Duoneb Neb) 3 ml HHN Q2HRT PRN PRN Reason: Shortness of Breath or Wheeze Stop: 11/30/17 15:31 Metronidazole 500 mg/ (Miscellaneous) 100 mls @ 100 mls/hr IV Q8HR [facility] Stop: 11/30/17 04:59 Last Infusion: 10/02/17 13:26 Dose: Infused Piperacillin Sod/Tazobactam (Sod 4.5 gm/ Sodium Chloride) 100 mls @ 100 mls/hr IV Q8HR [facility] Stop: 11/30/17 04:59 Last Admin: 10/02/17 13:26 Dose: 100 mls/hr Dextrose/Sodium Chloride (D5-0.9%Ns) 1,000 mls @ 100 mls/hr IV .Q10H [facility] Stop: 11/30/17 00:59 Last Admin: 10/02/17 04:45 Dose: 100 mls/hr Morphine Sulfate (Morphine) 2 mg IVP Q2H PRN PRN Reason: Abdominal Pain Stop: 11/30/17 00:39 Last Admin: 10/02/17 14:55 Dose: 2 mg Ondansetron HCl (Zofran) 4 mg IV Q8H PRN PRN Reason: Nausea / Vomiting Stop: 11/30/17 15:24 Zolpidem Tartrate (Ambien) 10 mg PO HS PRN PRN Reason: Insomnia Stop: 11/30/17 15:24 General: alert HEENT: NC/AT, PERRLA Neck: Supple Lungs: CTAB Cardiovascular: RRR, Normal S1, Normal S2 Abdomen: soft, non-tender, non-distended Neurological: alert Internal Medicine Assmt/Plan - Assessment Assessment: abdominal pain perforated bowel s/p resection colostomy kidney stones hyponatremia thrombocytopenia - Plan Plan: pain mgmt NM renal on Wednesday incentive spirometry follow up labs in am continue current plan of care
--- NOTE | 2017-10-02 15:55 | Progress Notes ---
DATE: UROLOGY PROGRESS NOTE SUBJECTIVE: He is postop day 1 after diverting colostomy for diverticular rupture, perforation. Continues to have significant pain in the abdomen, but not in the right flank. He has a Szymanski draining clear urine. He gives me a history that at least 15-16 years ago, he had a stone in one of his kidneys, treated with lithotripsy, but cannot remember details. Since then, he has never had pain in his right kidney or from any stone until this admission when he came in for his perforated colon. It is unclear if the pain is related to the GI problem or the obstructed right kidney, seen on CT scan incidentally. The scan shows a UPJ obstruction and punctate 1-2 mm stones in each kidney that are not obstructing. Abdominal pain can conceivably be originating in the right kidney, but it seems as though the pain is related to his acute abdomen and bowel perforation at least for now. PHYSICAL EXAMINATION: VITAL SIGNS: His temperature is 98.3, heart rate 72, and blood pressure 121/73. ABDOMEN: Distended with suture line intact and colostomy in place, which is not functioning as yet. The right flank is not tender to percussion and this pain is not originating in that area. EXTREMITIES: No edema. HEART: Sounds normal. LABORATORY DATA: White count 6.5, improved and hemoglobin stable 13.1. BUN 14, creatinine 1.0, quite stable. IMPRESSION: Right ureteropelvic junction obstruction and hydronephrosis could be incidental, could be congenital, or maybe acquired after the stone surgery, difficult to prove. For now, I would recommend an abdominal binder to relieve some of the incisional pain. We will do a nuclear renal scan with Lasix to see how much obstruction if any there is in the right kidney and while the patient is ambulatory, we can decide or try to pinpoint the origin of this pain in the abdomen, if it continues to persist several days after this abdominal incision has healed. At that point, he would require a retrograde pyelogram possibly a stent and then, consideration for a pyeloplasty. The kidney stones that are incidental in both kidneys are not a source of any pain and can be ignored for now. Acute abdomen from bowel perforation recovering with a colostomy. He was encouraged to ambulate and hopefully, we can remove the Szymanski within a day to reduce the risk of infection related to the catheter. [facility]# [id number]
[2017-10-03] MEDS: Morphine Sulfate 2 mg/mL 1mL Syr IVP PRN ×3 (01:40→17:58)
[2017-10-03] MEDS: metroNIDAZOLE 500mg/NS 100mL 500 MG in Premix Fluid 1 BAG IV SCH ×2 (05:56→12:14)
[2017-10-03 05:59] LABS: % BASOPHILS 0.3 % (0.0-2.0); % EOSINOPHILS 3.2 % (0.0-5.0); % LYMPHOCYTES 11.4 % (20.0-50.0); % MONOCYTES 6.4 % (2.0-10.0); % NEUTROPHILS 78.7 % (40.0-80.0); EOSINOPHILE ABSOLUTE 0.2 Th/cmm (0.1-0.4); HEMATOCRIT 36.4 % (41.0-60); HEMOGLOBIN 12.6 gm/dL (12-16); LYMPHOCYTE ABSOLUTE 0.7 Th/cmm (1.5-3.0); MEAN CELL VOLUME 86.2 fl (80-99); MEAN CORPUSCULAR HEMOGLOBIN 29.8 pg (27.0-31.0); MEAN CORPUSCULAR HGB CONC 34.6 pg (28.0-36.0); MEAN PLATELET VOLUME 7.8 fl; MONOCYTE ABSOLUTE 0.4 Th/cmm (0.3-1.0); PLATELET COUNT 132 Th/cmm (150-400); RED BLOOD COUNT 4.22 Mil/cmm (3.80-5.80); RED CELL DISTRIBUTION WIDTH 13.8 % (11.5-20.0); WHITE BLOOD COUNT 6.3 Th/cmm (4.8-10.8)
[2017-10-03 06:17] LABS: ANION GAP 8.2 (7.0-16.0); BUN - UREA NITROGEN 10 mg/dL (7-25); CALCIUM SERUM 7.6 mg/dL (8.6-10.3); CARBON DIOXIDE 24.4 mEq/L (21.0-31.0); CHLORIDE 110 mEq/L (98-107); CREATININE - SERUM 0.9 mg/dL (0.7-1.3); GLUCOSE 125 mg/dL (70-105); POTASSIUM SERUM 3.6 mEq/L (3.5-5.1); SODIUM SERUM 139 mEq/L (136-145)
--- NOTE | 2017-10-03 09:18 | Consultation ---
DATE OF CONSULTATION: 10/03/2017 REQUESTING PHYSICIAN: Dr. Rojas. REASON FOR CONSULTATION: Depression. HISTORY OF PRESENT ILLNESS: This patient is a 76-year-old male living by himself. Information obtained by directly interviewing the patient as well as reviewing the admission papers. The patient has been admitted here for acute onset of abdominal pain and discomfort, and shortness of breath. The patient is being currently medically stabilized. The patient is reported to have been in the Emergency Room and a CT scan showed a perforated bowel, and the patient is admitted for further treatment. Chart is reviewed. The patient is interviewed. During the interview, the patient has been mentioning that he has been on Prozac almost 20 years and has been on 10 mg. The patient is stating that following the divorce he has been feeling depressed and has been taking the medication. The patient also reporting that he has a little bit tamper too. PAST PSYCHIATRIC HISTORY: The patient denies any past psychiatric hospitalizations or treatments. SOCIAL HISTORY: The patient is . The patient has 3 children, a daughter and 2 sons, and they keep in touch with him. SUBSTANCE ABUSE HISTORY: None. MENTAL STATUS EXAMINATION: The patient is a 76-year-old, looking his stated age, cooperative. Eye contact is fair. Mood is noted to be irritable. Affect is constricted. Insight and judgment at this time are noted to be fair. Impulse control is also noted to be fair. The patient is motivated for treatment. The patient is willing to comply with the treatment and no side effect. The patient is not presenting with any threats to harm self or others. The patient has been able to verbalize the concerns rather than to act out at this time. The patient is motivated. The patient is alert and oriented x 3. DIAGNOSTIC IMPRESSION: Major depressive disorder. PLAN: Continue Prozac 10 mg and followup. Thank you, Dr. Rojas, for allowing me to participate in the care of the patient. [facility]# [id number]
--- NOTE | 2017-10-03 09:54 | General Progress Note ---
Subjective - Review of Systems Service Date: 10/03/17 Events since last encounter: labs oik redressed, incision clean flatus aplenty full liquids BILLY heard Objective - Results Result Diagrams: 10/03/17 05:24 10/03/17 05:24 Recent Labs: Laboratory Last Values WBC 6.3 Th/cmm (4.8-10.8) 10/03/17 05:24 RBC 4.22 Mil/cmm (3.80-5.80) 10/03/17 05:24 Hgb 12.6 gm/dL (12-16) 10/03/17 05:24 Hct 36.4 % (41.0-60) L 10/03/17 05:24 MCV 86.2 fl (80-99) 10/03/17 05:24 MCH 29.8 pg (27.0-31.0) 10/03/17 05:24 MCHC Differential 34.6 pg (28.0-36.0) 10/03/17 05:24 RDW 13.8 % (11.5-20.0) 10/03/17 05:24 Plt Count 132 Th/cmm (150-400) L 10/03/17 05:24 MPV 7.8 fl 10/03/17 05:24 Neutrophils % 78.7 % (40.0-80.0) 10/03/17 05:24 Band Neutrophils % 2 % (0-10) 09/30/17 22:10 Lymphocytes % 11.4 % (20.0-50.0) L 10/03/17 05:24 Monocytes % 6.4 % (2.0-10.0) 10/03/17 05:24 Eosinophils % 3.2 % (0.0-5.0) 10/03/17 05:24 Basophils % 0.3 % (0.0-2.0) 10/03/17 05:24 Neutrophils (Manual) 87 % (40-80) H 09/30/17 22:10 Lymphocytes 7 % (20-50) L 09/30/17 22:10 Monocytes 4 % (2-10) 09/30/17 22:10 Platelet Estimate ADEQUATE (NORMAL) 09/30/17 22:10 PT 9.9 SECONDS (9.5-11.5) 09/30/17 22:23 INR 0.95 (0.5-1.4) 09/30/17 22:23 PTT (Actin FS) 20.9 SECONDS (26.0-38.0) L 09/30/17 22:23 Sodium 139 mEq/L (136-145) 10/03/17 05:24 Potassium 3.6 mEq/L (3.5-5.1) 10/03/17 05:24 Chloride 110 mEq/L (98-107) H 10/03/17 05:24 Carbon Dioxide 24.4 mEq/L (21.0-31.0) 10/03/17 05:24 Anion Gap 8.2 (7.0-16.0) 10/03/17 05:24 BUN 10 mg/dL (7-25) 10/03/17 05:24 Creatinine 0.9 mg/dL (0.7-1.3) 10/03/17 05:24 Est GFR ( Amer) TNP 10/03/17 05:24 Est GFR (Non-Af Amer) TNP 10/03/17 05:24 BUN/Creatinine Ratio 11.1 10/03/17 05:24 Glucose 125 mg/dL (70-105) H 10/03/17 05:24 POC Glucose 133 MG/DL (70 - 105) H 10/01/17 09:17 Calcium 7.6 mg/dL (8.6-10.3) L 10/03/17 05:24 Magnesium 1.6 mg/dL (1.9-2.7) L 09/30/17 22:10 Total Bilirubin 0.7 mg/dL (0.3-1.0) 10/02/17 05:40 AST 17 U/L (13-39) 10/02/17 05:40 ALT 14 U/L (7-52) 10/02/17 05:40 Alkaline Phosphatase 63 U/L (34-104) 10/02/17 05:40 Total Protein 5.4 gm/dL (6.0-8.3) L 10/02/17 05:40 Albumin 3.2 gm/dL (4.2-5.5) L 10/02/17 05:40 Globulin 2.2 gm/dL 10/02/17 05:40 Albumin/Globulin Ratio 1.5 (1.0-1.8) 10/02/17 05:40 Lipase 8 U/L (11-82) L 09/30/17 22:10 Urine Source RANDOM 10/01/17 06:06 Urine Color YELLOW 10/01/17 06:06 Urine Clarity CLEAR (CLEAR) 10/01/17 06:06 Urine pH 5.5 (4.6 - 8.0) 10/01/17 06:06 Ur Specific [place] 1.020 (1.005-1.030) 10/01/17 06:06 Urine Protein NEGATIVE mg/dL (NEGATIVE) 10/01/17 06:06 Urine Glucose (UA) NEGATIVE mg/dL (NEGATIVE) 10/01/17 06:06 Urine Ketones NEGATIVE mg/dL (NEGATIVE) 10/01/17 06:06 Urine Blood NEGATIVE (NEGATIVE) 10/01/17 06:06 Urine Nitrate NEGATIVE (NEGATIVE) 10/01/17 06:06 Urine Bilirubin NEGATIVE (NEGATIVE) 10/01/17 06:06 Urine Urobilinogen 0.2 E.U./dL (0.2 - 1.0) 10/01/17 06:06 Ur Leukocyte Esterase NEGATIVE (NEGATIVE) 10/01/17 06:06 Urine RBC 0-2 /hpf (0-5) H 10/01/17 06:06 Urine WBC 0-2 /hpf (0-5) 10/01/17 06:06 Ur Epithelial Cells FEW /lpf (FEW) 10/01/17 06:06 Urine Bacteria OCCASIONAL /hpf (NONE SEEN) 10/01/17 06:06 Urine Mucus FEW /lpf (FEW) 10/01/17 06:06 - Physical Exam Vitals and I&O: Vital Signs Temp 99.0 F 10/03/17 04:00 Pulse 75 10/03/17 07:57 Resp 14 10/03/17 07:57 BP 143/71 10/03/17 04:00 Pulse Ox 98 10/03/17 07:57 Intake & Output 10/02/17 10/03/17 10/03/17 18:59 06:59 18:59 Intake Total 1300 500 Output Total 620 Balance 1300 -120 Weight (lbs) 75.75 kg Intake: Intake, IV Amount 1300 300 D5-0.9%Ns 1,000 ml @ 100 1000 mls/hr IV .Q10H [facility] Rx#: [id number] Piperacillin Sodium/ 200 200 Tazobact 4.5 gm In Sodium Chloride 0.9% 100 ml @ 100 mls/hr IV Q8HR [facility] Rx #:[id number] metroNIDAZOLE 500mg/NS 100 100 100mL 500 mg In Premix Fluid 1 bag @ 100 mls/hr IV Q8HR [facility] Rx#:[id number] Oral 200 Output: Drainage 20 Left Abdomen 20 Urine 575 Stool 0 Other 25 Other: # Bowel Movements 0 Active Medications: Current Medications Acetaminophen (Tylenol) 650 mg PO Q4H PRN PRN Reason: Pain Or Fever above 101 Stop: 11/30/17 15:24 Albuterol/Ipratropium (Duoneb Neb) 3 ml HHN Q2HRT PRN PRN Reason: Shortness of Breath or Wheeze Stop: 11/30/17 15:31 Metronidazole 500 mg/ (Miscellaneous) 100 mls @ 100 mls/hr IV Q8HR [facility] Stop: 11/30/17 04:59 Last Admin: 10/03/17 05:56 Dose: 100 mls/hr Piperacillin Sod/Tazobactam (Sod 4.5 gm/ Sodium Chloride) 100 mls @ 100 mls/hr IV Q8HR [facility] Stop: 11/30/17 04:59 Last Infusion: 10/03/17 05:55 Dose: Infused Dextrose/Sodium Chloride (D5-0.9%Ns) 1,000 mls @ 100 mls/hr IV .Q10H [facility] Stop: 11/30/17 00:59 Last Admin: 10/02/17 18:59 Dose: 100 mls/hr Morphine Sulfate (Morphine) 2 mg IVP Q2H PRN PRN Reason: Abdominal Pain Stop: 11/30/17 00:39 Last Admin: 10/03/17 01:40 Dose: 2 mg Ondansetron HCl (Zofran) 4 mg IV Q8H PRN PRN Reason: Nausea / Vomiting Stop: 11/30/17 15:24 Zolpidem Tartrate (Ambien) 10 mg PO HS PRN PRN Reason: Insomnia Stop: 11/30/17 15:24
--- NOTE | 2017-10-03 13:14 | Internal Medicine Prog Note ---
Internal Medicine Subjective - Subjective Service Date: 10/03/17 Patient seen and examined:: with staff Patient is:: awake, verbal Per staff patient has:: no adverse event, tolerating meds Internal Medicine Objective - Results Result Diagrams: 10/03/17 05:24 10/03/17 05:24 Recent Labs: Laboratory Last Values WBC 6.3 Th/cmm (4.8-10.8) 10/03/17 05:24 RBC 4.22 Mil/cmm (3.80-5.80) 10/03/17 05:24 Hgb 12.6 gm/dL (12-16) 10/03/17 05:24 Hct 36.4 % (41.0-60) L 10/03/17 05:24 MCV 86.2 fl (80-99) 10/03/17 05:24 MCH 29.8 pg (27.0-31.0) 10/03/17 05:24 MCHC Differential 34.6 pg (28.0-36.0) 10/03/17 05:24 RDW 13.8 % (11.5-20.0) 10/03/17 05:24 Plt Count 132 Th/cmm (150-400) L 10/03/17 05:24 MPV 7.8 fl 10/03/17 05:24 Neutrophils % 78.7 % (40.0-80.0) 10/03/17 05:24 Band Neutrophils % 2 % (0-10) 09/30/17 22:10 Lymphocytes % 11.4 % (20.0-50.0) L 10/03/17 05:24 Monocytes % 6.4 % (2.0-10.0) 10/03/17 05:24 Eosinophils % 3.2 % (0.0-5.0) 10/03/17 05:24 Basophils % 0.3 % (0.0-2.0) 10/03/17 05:24 Neutrophils (Manual) 87 % (40-80) H 09/30/17 22:10 Lymphocytes 7 % (20-50) L 09/30/17 22:10 Monocytes 4 % (2-10) 09/30/17 22:10 Platelet Estimate ADEQUATE (NORMAL) 09/30/17 22:10 PT 9.9 SECONDS (9.5-11.5) 09/30/17 22:23 INR 0.95 (0.5-1.4) 09/30/17 22:23 PTT (Actin FS) 20.9 SECONDS (26.0-38.0) L 09/30/17 22:23 Sodium 139 mEq/L (136-145) 10/03/17 05:24 Potassium 3.6 mEq/L (3.5-5.1) 10/03/17 05:24 Chloride 110 mEq/L (98-107) H 10/03/17 05:24 Carbon Dioxide 24.4 mEq/L (21.0-31.0) 10/03/17 05:24 Anion Gap 8.2 (7.0-16.0) 10/03/17 05:24 BUN 10 mg/dL (7-25) 10/03/17 05:24 Creatinine 0.9 mg/dL (0.7-1.3) 10/03/17 05:24 Est GFR ( Amer) TNP 10/03/17 05:24 Est GFR (Non-Af Amer) TNP 10/03/17 05:24 BUN/Creatinine Ratio 11.1 10/03/17 05:24 Glucose 125 mg/dL (70-105) H 10/03/17 05:24 POC Glucose 133 MG/DL (70 - 105) H 10/01/17 09:17 Calcium 7.6 mg/dL (8.6-10.3) L 10/03/17 05:24 Magnesium 1.6 mg/dL (1.9-2.7) L 09/30/17 22:10 Total Bilirubin 0.7 mg/dL (0.3-1.0) 10/02/17 05:40 AST 17 U/L (13-39) 10/02/17 05:40 ALT 14 U/L (7-52) 10/02/17 05:40 Alkaline Phosphatase 63 U/L (34-104) 10/02/17 05:40 Total Protein 5.4 gm/dL (6.0-8.3) L 10/02/17 05:40 Albumin 3.2 gm/dL (4.2-5.5) L 10/02/17 05:40 Globulin 2.2 gm/dL 10/02/17 05:40 Albumin/Globulin Ratio 1.5 (1.0-1.8) 10/02/17 05:40 Lipase 8 U/L (11-82) L 09/30/17 22:10 Urine Source RANDOM 10/01/17 06:06 Urine Color YELLOW 10/01/17 06:06 Urine Clarity CLEAR (CLEAR) 10/01/17 06:06 Urine pH 5.5 (4.6 - 8.0) 10/01/17 06:06 Ur Specific [place] 1.020 (1.005-1.030) 10/01/17 06:06 Urine Protein NEGATIVE mg/dL (NEGATIVE) 10/01/17 06:06 Urine Glucose (UA) NEGATIVE mg/dL (NEGATIVE) 10/01/17 06:06 Urine Ketones NEGATIVE mg/dL (NEGATIVE) 10/01/17 06:06 Urine Blood NEGATIVE (NEGATIVE) 10/01/17 06:06 Urine Nitrate NEGATIVE (NEGATIVE) 10/01/17 06:06 Urine Bilirubin NEGATIVE (NEGATIVE) 10/01/17 06:06 Urine Urobilinogen 0.2 E.U./dL (0.2 - 1.0) 10/01/17 06:06 Ur Leukocyte Esterase NEGATIVE (NEGATIVE) 10/01/17 06:06 Urine RBC 0-2 /hpf (0-5) H 10/01/17 06:06 Urine WBC 0-2 /hpf (0-5) 10/01/17 06:06 Ur Epithelial Cells FEW /lpf (FEW) 10/01/17 06:06 Urine Bacteria OCCASIONAL /hpf (NONE SEEN) 10/01/17 06:06 Urine Mucus FEW /lpf (FEW) 10/01/17 06:06 - Physical Exam Vitals and I&O: Vital Signs Temp 97.0 F 10/03/17 12:00 Pulse 60 10/03/17 12:00 Resp 20 10/03/17 12:00 BP 153/81 10/03/17 12:00 Pulse Ox 97 10/03/17 12:00 Intake & Output 10/02/17 10/03/17 10/03/17 18:59 06:59 18:59 Intake Total 1300 600 Output Total 620 Balance 1300 -20 Weight (lbs) 167 lb Intake: Intake, IV Amount 1300 400 D5-0.9%Ns 1,000 ml @ 100 1000 mls/hr IV .Q10H [facility] Rx#: [id number] Piperacillin Sodium/ 200 200 Tazobact 4.5 gm In Sodium Chloride 0.9% 100 ml @ 100 mls/hr IV Q8HR [facility] Rx #:[id number] metroNIDAZOLE 500mg/NS 100 200 100mL 500 mg In Premix Fluid 1 bag @ 100 mls/hr IV Q8HR [facility] Rx#:[id number] Oral 200 Output: Drainage 20 Left Abdomen 20 Urine 575 Stool 0 Other 25 Other: # Bowel Movements 0 Active Medications: Current Medications Acetaminophen (Tylenol) 650 mg PO Q4H PRN PRN Reason: Pain Or Fever above 101 Stop: 11/30/17 15:24 Albuterol/Ipratropium (Duoneb Neb) 3 ml HHN Q2HRT PRN PRN Reason: Shortness of Breath or Wheeze Stop: 11/30/17 15:31 Fluoxetine HCl (Prozac) 10 mg PO DAILY [facility] PRN Reason: Protocol Stop: 12/03/17 08:59 Metronidazole 500 mg/ (Miscellaneous) 100 mls @ 100 mls/hr IV Q8HR [facility] Stop: 11/30/17 04:59 Last Admin: 10/03/17 12:14 Dose: 100 mls/hr Piperacillin Sod/Tazobactam (Sod 4.5 gm/ Sodium Chloride) 100 mls @ 100 mls/hr IV Q8HR [facility] Stop: 11/30/17 04:59 Last Infusion: 10/03/17 05:55 Dose: Infused Dextrose/Sodium Chloride (D5-0.9%Ns) 1,000 mls @ 100 mls/hr IV .Q10H [facility] Stop: 11/30/17 00:59 Last Admin: 10/02/17 18:59 Dose: 100 mls/hr Morphine Sulfate (Morphine) 2 mg IVP Q2H PRN PRN Reason: Abdominal Pain Stop: 11/30/17 00:39 Last Admin: 10/03/17 01:40 Dose: 2 mg Ondansetron HCl (Zofran) 4 mg IV Q8H PRN PRN Reason: Nausea / Vomiting Stop: 11/30/17 15:24 Zolpidem Tartrate (Ambien) 10 mg PO HS PRN PRN Reason: Insomnia Stop: 11/30/17 15:24 General: alert HEENT: NC/AT, PERRLA Neck: Supple Lungs: CTAB Cardiovascular: RRR, Normal S1, Normal S2 Abdomen: soft, non-tender, non-distended Neurological: alert Internal Medicine Assmt/Plan - Assessment Assessment: abdominal pain perforated bowel s/p resection colostomy kidney stones hyponatremia thrombocytopenia - Plan Plan: pain mgmt NM renal on tomorrow incentive spirometry follow up labs in am continue current plan of care
--- NOTE | 2017-10-03 18:23 | Infectious Disease Prog Note ---
Infectious Disease Subjective - Review of Systems Service Date: 10/03/17 Subjective: No new change, no fever. Infectious Disease Objective - Results Result Diagrams: 10/03/17 05:24 10/03/17 05:24 Recent Labs: Laboratory Last Values WBC 6.3 Th/cmm (4.8-10.8) 10/03/17 05:24 RBC 4.22 Mil/cmm (3.80-5.80) 10/03/17 05:24 Hgb 12.6 gm/dL (12-16) 10/03/17 05:24 Hct 36.4 % (41.0-60) L 10/03/17 05:24 MCV 86.2 fl (80-99) 10/03/17 05:24 MCH 29.8 pg (27.0-31.0) 10/03/17 05:24 MCHC Differential 34.6 pg (28.0-36.0) 10/03/17 05:24 RDW 13.8 % (11.5-20.0) 10/03/17 05:24 Plt Count 132 Th/cmm (150-400) L 10/03/17 05:24 MPV 7.8 fl 10/03/17 05:24 Neutrophils % 78.7 % (40.0-80.0) 10/03/17 05:24 Band Neutrophils % 2 % (0-10) 09/30/17 22:10 Lymphocytes % 11.4 % (20.0-50.0) L 10/03/17 05:24 Monocytes % 6.4 % (2.0-10.0) 10/03/17 05:24 Eosinophils % 3.2 % (0.0-5.0) 10/03/17 05:24 Basophils % 0.3 % (0.0-2.0) 10/03/17 05:24 Neutrophils (Manual) 87 % (40-80) H 09/30/17 22:10 Lymphocytes 7 % (20-50) L 09/30/17 22:10 Monocytes 4 % (2-10) 09/30/17 22:10 Platelet Estimate ADEQUATE (NORMAL) 09/30/17 22:10 PT 9.9 SECONDS (9.5-11.5) 09/30/17 22:23 INR 0.95 (0.5-1.4) 09/30/17 22:23 PTT (Actin FS) 20.9 SECONDS (26.0-38.0) L 09/30/17 22:23 Sodium 139 mEq/L (136-145) 10/03/17 05:24 Potassium 3.6 mEq/L (3.5-5.1) 10/03/17 05:24 Chloride 110 mEq/L (98-107) H 10/03/17 05:24 Carbon Dioxide 24.4 mEq/L (21.0-31.0) 10/03/17 05:24 Anion Gap 8.2 (7.0-16.0) 10/03/17 05:24 BUN 10 mg/dL (7-25) 10/03/17 05:24 Creatinine 0.9 mg/dL (0.7-1.3) 10/03/17 05:24 Est GFR ( Amer) TNP 10/03/17 05:24 Est GFR (Non-Af Amer) TNP 10/03/17 05:24 BUN/Creatinine Ratio 11.1 10/03/17 05:24 Glucose 125 mg/dL (70-105) H 10/03/17 05:24 POC Glucose 133 MG/DL (70 - 105) H 10/01/17 09:17 Calcium 7.6 mg/dL (8.6-10.3) L 10/03/17 05:24 Magnesium 1.6 mg/dL (1.9-2.7) L 09/30/17 22:10 Total Bilirubin 0.7 mg/dL (0.3-1.0) 10/02/17 05:40 AST 17 U/L (13-39) 10/02/17 05:40 ALT 14 U/L (7-52) 10/02/17 05:40 Alkaline Phosphatase 63 U/L (34-104) 10/02/17 05:40 Total Protein 5.4 gm/dL (6.0-8.3) L 10/02/17 05:40 Albumin 3.2 gm/dL (4.2-5.5) L 10/02/17 05:40 Globulin 2.2 gm/dL 10/02/17 05:40 Albumin/Globulin Ratio 1.5 (1.0-1.8) 10/02/17 05:40 Lipase 8 U/L (11-82) L 09/30/17 22:10 Urine Source RANDOM 10/01/17 06:06 Urine Color YELLOW 10/01/17 06:06 Urine Clarity CLEAR (CLEAR) 10/01/17 06:06 Urine pH 5.5 (4.6 - 8.0) 10/01/17 06:06 Ur Specific [place] 1.020 (1.005-1.030) 10/01/17 06:06 Urine Protein NEGATIVE mg/dL (NEGATIVE) 10/01/17 06:06 Urine Glucose (UA) NEGATIVE mg/dL (NEGATIVE) 10/01/17 06:06 Urine Ketones NEGATIVE mg/dL (NEGATIVE) 10/01/17 06:06 Urine Blood NEGATIVE (NEGATIVE) 10/01/17 06:06 Urine Nitrate NEGATIVE (NEGATIVE) 10/01/17 06:06 Urine Bilirubin NEGATIVE (NEGATIVE) 10/01/17 06:06 Urine Urobilinogen 0.2 E.U./dL (0.2 - 1.0) 10/01/17 06:06 Ur Leukocyte Esterase NEGATIVE (NEGATIVE) 10/01/17 06:06 Urine RBC 0-2 /hpf (0-5) H 10/01/17 06:06 Urine WBC 0-2 /hpf (0-5) 10/01/17 06:06 Ur Epithelial Cells FEW /lpf (FEW) 10/01/17 06:06 Urine Bacteria OCCASIONAL /hpf (NONE SEEN) 10/01/17 06:06 Urine Mucus FEW /lpf (FEW) 10/01/17 06:06 - Physical Exam Vitals and I&O: Vital Signs Temp 98.3 F 10/03/17 16:00 Pulse 68 10/03/17 16:00 Resp 17 10/03/17 16:00 BP 164/86 10/03/17 16:00 Pulse Ox 97 10/03/17 16:00 Intake & Output 10/02/17 10/03/17 10/03/17 18:59 06:59 18:59 Intake Total 1300 600 200 Output Total 620 Balance 1300 -20 200 Weight (lbs) 75.75 kg Intake: Intake, IV Amount 1300 400 200 D5-0.9%Ns 1,000 ml @ 100 1000 mls/hr IV .Q10H REPLACED BY [facility] Rx#: [id number] Piperacillin Sodium/ 200 200 100 Tazobact 4.5 gm In Sodium Chloride 0.9% 100 ml @ 100 mls/hr IV Q8HR REPLACED BY [facility] Rx #:[id number] metroNIDAZOLE 500mg/NS 100 200 100 100mL 500 mg In Premix Fluid 1 bag @ 100 mls/hr IV Q8HR REPLACED BY [facility] Rx#:[id number] Oral 200 Output: Drainage 20 Left Abdomen 20 Urine 575 Stool 0 Other 25 Other: # Bowel Movements 0 Active Medications: Current Medications Acetaminophen (Tylenol) 650 mg PO Q4H PRN PRN Reason: Pain Or Fever above 101 Stop: 11/30/17 15:24 Albuterol/Ipratropium (Duoneb Neb) 3 ml HHN Q2HRT PRN PRN Reason: Shortness of Breath or Wheeze Stop: 11/30/17 15:31 Fluoxetine HCl (Prozac) 10 mg PO DAILY [facility] BY [facility] PRN Reason: Protocol Stop: 12/03/17 08:59 Metronidazole 500 mg/ (Miscellaneous) 100 mls @ 100 mls/hr IV Q8HR [facility]PLACED BY [facility] Stop: 11/30/17 04:59 Last Infusion: 10/03/17 13:28 Dose: Infused Piperacillin Sod/Tazobactam (Sod 4.5 gm/ Sodium Chloride) 100 mls @ 100 mls/hr IV Q8HR REPLACED BY [facility] Stop: 11/30/17 04:59 Last Infusion: 10/03/17 14:14 Dose: Infused Dextrose/Sodium Chloride (D5-0.9%Ns) 1,000 mls @ 100 mls/hr IV .Q10H REPLACED BY [facility] Stop: 11/30/17 00:59 Last Admin: 10/02/17 18:59 Dose: 100 mls/hr Morphine Sulfate (Morphine) 2 mg IVP Q2H PRN PRN Reason: Abdominal Pain Stop: 11/30/17 00:39 Last Admin: 10/03/17 17:58 Dose: 2 mg Ondansetron HCl (Zofran) 4 mg IV Q8H PRN PRN Reason: Nausea / Vomiting Stop: 11/30/17 15:24 Zolpidem Tartrate (Ambien) 10 mg PO HS PRN PRN Reason: Insomnia Stop: 11/30/17 15:24 General: no acute distress, well developed, well nourished HEENT: atraumatic, normocephalic, PERRLA, EOMI, moist mucous membrane Neck: supple, no thyromegaly, no lymphadenopathy Cardiovascular: S1S2, regular Lungs: clear to auscultation bilaterally, clear to percussion Abdomen: soft, other (colostomy.), no tender, no distended Extremities: no cyanosis, no clubbing, no edema Neurological: awake, alert, oriented Skin: intact, no rash Infectious Disease Assmt/Plan - Assessment Assessment: 1. peritonitis 2/2 perforated diverticulitis. 2. Right sided hydronephrosis. 3. s/p exploratory laparotomy and colcotomy. - Plan Plan: will change zosyn to levaquin and flagyl po for 7 days from now. .
--- NOTE | 2017-10-03 20:28 | Discharge Summary ---
DATE OF DISCHARGE: UROLOGY PROGRESS NOTE HOSPITAL COURSE: The patient is making progress with passing of flatus, improved appetite, less pain. His renal scan is pending for tomorrow. PHYSICAL EXAMINATION: VITAL SIGNS: Blood pressure 164/86, heart rate 68, and temperature 98.3. No fever in the last 24 hours. ABDOMEN: Soft and post-surgical. Flank, nontender. EXTREMITIES: No edema. LUNGS: No rales or rhonchi. LABORATORY DATA: White count 6.3, hemoglobin 12.6, BUN 10, creatinine 0.9. Peritoneal culture is growing out Klebsiella on preliminary report consistent with ruptured bowel and peritonitis. The patient was also seen by Psychiatry and diagnosed as having depression. IMPRESSION: 1. Right hydronephrosis secondary to ureteropelvic junction obstruction. It is unclear whether this acquired of congenital. Plan, [place] renal scan, which may give her some more clues. 2. History of stone disease, status post surgery many years ago, which may be the cause of an acquired ureteropelvic junction obstruction. 3. Perforated bowel with peritonitis, status post colostomy, improving slowly. 4. Major depression as per Psychiatry. JOB# [id number]
[2017-10-03] MEDS: D5-0.9%NS 1,000 ML IV SCH (22:22)
[2017-10-04] MEDS: Morphine Sulfate 2 mg/mL 1mL Syr IVP PRN ×4 (00:57→23:05)
[2017-10-04 07:09] LABS: EOSINOPHILE ABSOLUTE 0.5 Th/cmm (0.1-0.4); HEMATOCRIT 37.8 % (41.0-60); HEMOGLOBIN 12.6 gm/dL (12-16); LYMPHOCYTE ABSOLUTE 0.2 Th/cmm (1.5-3.0); MANUAL DIFF REQUIRED? YES; MEAN CELL VOLUME 87.5 fl (80-99); MEAN CORPUSCULAR HEMOGLOBIN 29.2 pg (27.0-31.0); MEAN CORPUSCULAR HGB CONC 33.3 pg (28.0-36.0); MONOCYTE ABSOLUTE 1.8 Th/cmm (0.3-1.0); NEUTROPHILE ABSOLUTE 2.5 Th/cmm (1.8-8.0); RED BLOOD COUNT 4.32 Mil/cmm (3.80-5.80); RED CELL DISTRIBUTION WIDTH 13.5 % (11.5-20.0)
[2017-10-04 07:26] LABS: PLATELET COUNT 163 Th/cmm (150-400)
[2017-10-04 07:43] LABS: ALB/GLOB RATIO 1.3 (1.0-1.8); ALBUMIN 2.8 gm/dL (4.2-5.5); ALKALINE PHOSPHATASE 60 U/L (34-104); ANION GAP 7.3 (7.0-16.0); BILIRUBIN,TOTAL 0.5 mg/dL (0.3-1.0); BUN - UREA NITROGEN 8 mg/dL (7-25); CALCIUM SERUM 7.5 mg/dL (8.6-10.3); CARBON DIOXIDE 25.1 mEq/L (21.0-31.0); CHLORIDE 112 mEq/L (98-107); CREATININE - SERUM 0.7 mg/dL (0.7-1.3); GLUCOSE 121 mg/dL (70-105); POTASSIUM SERUM 3.4 mEq/L (3.5-5.1); SGOT 20 U/L (13-39); SGPT/ALT 13 U/L (7-52); SODIUM SERUM 141 mEq/L (136-145)
[2017-10-04 07:57] LABS: BAND NEUTROPHILE 1 % (0-10); EOSINOPHIL 15 % (0-5); LYMPHOCYTE 13 % (20-50); MONOCYTE 5 % (2-10); NEUTROPHILS 66 % (40-80); TOTAL CELLS COUNTED 100
--- NOTE | 2017-10-04 12:18 | General Progress Note ---
Subjective - Review of Systems Service Date: 10/04/17 Events since last encounter: ostomy output good increase diet renogram ordered by Dr. Cotton Objective - Results Result Diagrams: 10/04/17 06:45 10/04/17 06:45 Recent Labs: Laboratory Last Values WBC 5.0 Th/cmm (4.8-10.8) D 10/04/17 06:45 RBC 4.32 Mil/cmm (3.80-5.80) 10/04/17 06:45 Hgb 12.6 gm/dL (12-16) 10/04/17 06:45 Hct 37.8 % (41.0-60) L 10/04/17 06:45 MCV 87.5 fl (80-99) 10/04/17 06:45 MCH 29.2 pg (27.0-31.0) 10/04/17 06:45 MCHC Differential 33.3 pg (28.0-36.0) 10/04/17 06:45 RDW 13.5 % (11.5-20.0) 10/04/17 06:45 Plt Count 163 Th/cmm (150-400) D 10/04/17 06:45 MPV 7.0 fl 10/04/17 06:45 Neutrophils % 78.7 % (40.0-80.0) 10/03/17 05:24 Band Neutrophils % 1 % (0-10) 10/04/17 06:45 Lymphocytes % 11.4 % (20.0-50.0) L 10/03/17 05:24 Monocytes % 6.4 % (2.0-10.0) 10/03/17 05:24 Eosinophils % 3.2 % (0.0-5.0) 10/03/17 05:24 Basophils % 0.3 % (0.0-2.0) 10/03/17 05:24 Neutrophils (Manual) 66 % (40-80) 10/04/17 06:45 Lymphocytes 13 % (20-50) L 10/04/17 06:45 Monocytes 5 % (2-10) 10/04/17 06:45 Eosinophils 15 % (0-5) H 10/04/17 06:45 Platelet Estimate ADEQUATE (NORMAL) 09/30/17 22:10 PT 9.9 SECONDS (9.5-11.5) 09/30/17 22:23 INR 0.95 (0.5-1.4) 09/30/17 22:23 PTT (Actin FS) 20.9 SECONDS (26.0-38.0) L 09/30/17 22:23 Sodium 141 mEq/L (136-145) 10/04/17 06:45 Potassium 3.4 mEq/L (3.5-5.1) L 10/04/17 06:45 Chloride 112 mEq/L (98-107) H 10/04/17 06:45 Carbon Dioxide 25.1 mEq/L (21.0-31.0) 10/04/17 06:45 Anion Gap 7.3 (7.0-16.0) 10/04/17 06:45 BUN 8 mg/dL (7-25) 10/04/17 06:45 Creatinine 0.7 mg/dL (0.7-1.3) 10/04/17 06:45 Est GFR ( Amer) TNP 10/04/17 06:45 Est GFR (Non-Af Amer) TNP 10/04/17 06:45 BUN/Creatinine Ratio 11.4 10/04/17 06:45 Glucose 121 mg/dL (70-105) H 10/04/17 06:45 POC Glucose 133 MG/DL (70 - 105) H 10/01/17 09:17 Calcium 7.5 mg/dL (8.6-10.3) L 10/04/17 06:45 Magnesium 1.6 mg/dL (1.9-2.7) L 09/30/17 22:10 Total Bilirubin 0.5 mg/dL (0.3-1.0) 10/04/17 06:45 AST 20 U/L (13-39) 10/04/17 06:45 ALT 13 U/L (7-52) 10/04/17 06:45 Alkaline Phosphatase 60 U/L (34-104) 10/04/17 06:45 Total Protein 5.0 gm/dL (6.0-8.3) L 10/04/17 06:45 Albumin 2.8 gm/dL (4.2-5.5) L 10/04/17 06:45 Globulin 2.2 gm/dL 10/04/17 06:45 Albumin/Globulin Ratio 1.3 (1.0-1.8) 10/04/17 06:45 Lipase 8 U/L (11-82) L 09/30/17 22:10 Urine Source RANDOM 10/01/17 06:06 Urine Color YELLOW 10/01/17 06:06 Urine Clarity CLEAR (CLEAR) 10/01/17 06:06 Urine pH 5.5 (4.6 - 8.0) 10/01/17 06:06 Ur Specific [place] 1.020 (1.005-1.030) 10/01/17 06:06 Urine Protein NEGATIVE mg/dL (NEGATIVE) 10/01/17 06:06 Urine Glucose (UA) NEGATIVE mg/dL (NEGATIVE) 10/01/17 06:06 Urine Ketones NEGATIVE mg/dL (NEGATIVE) 10/01/17 06:06 Urine Blood NEGATIVE (NEGATIVE) 10/01/17 06:06 Urine Nitrate NEGATIVE (NEGATIVE) 10/01/17 06:06 Urine Bilirubin NEGATIVE (NEGATIVE) 10/01/17 06:06 Urine Urobilinogen 0.2 E.U./dL (0.2 - 1.0) 10/01/17 06:06 Ur Leukocyte Esterase NEGATIVE (NEGATIVE) 10/01/17 06:06 Urine RBC 0-2 /hpf (0-5) H 10/01/17 06:06 Urine WBC 0-2 /hpf (0-5) 10/01/17 06:06 Ur Epithelial Cells FEW /lpf (FEW) 10/01/17 06:06 Urine Bacteria OCCASIONAL /hpf (NONE SEEN) 10/01/17 06:06 Urine Mucus FEW /lpf (FEW) 10/01/17 06:06 - Physical Exam Vitals and I&O: Vital Signs Temp 97.5 F 10/04/17 08:00 Pulse 63 10/04/17 08:00 Resp 17 10/04/17 08:00 BP 157/70 10/04/17 08:00 Pulse Ox 97 10/04/17 08:00 Intake & Output 10/03/17 10/04/17 10/04/17 18:59 06:59 18:59 Intake Total 200 200 200 Output Total 350 300 Balance 200 -150 -100 Weight (lbs) 91.172 kg 75.75 kg Intake: Intake, IV Amount 200 Piperacillin Sodium/ 100 Tazobact 4.5 gm In Sodium Chloride 0.9% 100 ml @ 100 mls/hr IV Q8HR [facility] Rx #:[id number] metroNIDAZOLE 500mg/NS 100 100mL 500 mg In Premix Fluid 1 bag @ 100 mls/hr IV Q8HR [facility] Rx#:[id number] Oral 200 200 Output: Drainage 40 Left Abdomen 40 Urine 300 300 Stool 0 Other 10 Other: # Voids 100 # Bowel Movements 0 Active Medications: Current Medications Acetaminophen (Tylenol) 650 mg PO Q4H PRN PRN Reason: Pain Or Fever above 101 Stop: 11/30/17 15:24 Albuterol/Ipratropium (Duoneb Neb) 3 ml HHN Q2HRT PRN PRN Reason: Shortness of Breath or Wheeze Stop: 11/30/17 15:31 Fluoxetine HCl (Prozac) 10 mg PO DAILY [facility] PRN Reason: Protocol Stop: 12/03/17 08:59 Last Admin: 10/04/17 09:10 Dose: 10 mg Dextrose/Sodium Chloride (D5-0.9%Ns) 1,000 mls @ 100 mls/hr IV .Q10H [facility] Stop: 11/30/17 00:59 Last Admin: 10/03/17 22:22 Dose: 100 mls/hr Levofloxacin (Levaquin) 500 mg PO DAILY [facility] Stop: 12/03/17 08:59 Last Admin: 10/04/17 09:10 Dose: 500 mg Metronidazole (Flagyl) 500 mg PO BID [facility] Stop: 10/10/17 09:01 Last Admin: 10/04/17 09:10 Dose: 500 mg Morphine Sulfate (Morphine) 2 mg IVP Q2H PRN PRN Reason: Abdominal Pain Stop: 11/30/17 00:39 Last Admin: 10/04/17 00:57 Dose: 2 mg Ondansetron HCl (Zofran) 4 mg IV Q8H PRN PRN Reason: Nausea / Vomiting Stop: 11/30/17 15:24 Zolpidem Tartrate (Ambien) 10 mg PO HS PRN PRN Reason: Insomnia Stop: 11/30/17 15:24 Last Admin: 10/03/17 21:58 Dose: 10 mg - Procedures Procedures: Procedures Procedure Code Date RECTUM SURGERY PROCEDURE 10677 09/30/17 RESECTION OF SIGMOID COLON, OPEN APPROACH [id number] 09/30/17
[2017-10-04] MEDS ORDERED: D5-0.9%NS 1,000 ML IV SCH (13:19)
--- NOTE | 2017-10-04 13:21 | Internal Medicine Prog Note ---
Internal Medicine Subjective - Subjective Patient seen and examined:: with staff, chart reviewed Patient is:: awake, verbal, interactive, in bed, talking Patient Complaints of:: bloated Per staff patient has:: no adverse event, poor oral intake, unstable gait, tolerating meds Internal Medicine Objective - Results Result Diagrams: 10/04/17 06:45 10/04/17 06:45 Recent Labs: Laboratory Last Values WBC 5.0 Th/cmm (4.8-10.8) D 10/04/17 06:45 RBC 4.32 Mil/cmm (3.80-5.80) 10/04/17 06:45 Hgb 12.6 gm/dL (12-16) 10/04/17 06:45 Hct 37.8 % (41.0-60) L 10/04/17 06:45 MCV 87.5 fl (80-99) 10/04/17 06:45 MCH 29.2 pg (27.0-31.0) 10/04/17 06:45 MCHC Differential 33.3 pg (28.0-36.0) 10/04/17 06:45 RDW 13.5 % (11.5-20.0) 10/04/17 06:45 Plt Count 163 Th/cmm (150-400) D 10/04/17 06:45 MPV 7.0 fl 10/04/17 06:45 Neutrophils % 78.7 % (40.0-80.0) 10/03/17 05:24 Band Neutrophils % 1 % (0-10) 10/04/17 06:45 Lymphocytes % 11.4 % (20.0-50.0) L 10/03/17 05:24 Monocytes % 6.4 % (2.0-10.0) 10/03/17 05:24 Eosinophils % 3.2 % (0.0-5.0) 10/03/17 05:24 Basophils % 0.3 % (0.0-2.0) 10/03/17 05:24 Neutrophils (Manual) 66 % (40-80) 10/04/17 06:45 Lymphocytes 13 % (20-50) L 10/04/17 06:45 Monocytes 5 % (2-10) 10/04/17 06:45 Eosinophils 15 % (0-5) H 10/04/17 06:45 Platelet Estimate ADEQUATE (NORMAL) 09/30/17 22:10 PT 9.9 SECONDS (9.5-11.5) 09/30/17 22:23 INR 0.95 (0.5-1.4) 09/30/17 22:23 PTT (Actin FS) 20.9 SECONDS (26.0-38.0) L 09/30/17 22:23 Sodium 141 mEq/L (136-145) 10/04/17 06:45 Potassium 3.4 mEq/L (3.5-5.1) L 10/04/17 06:45 Chloride 112 mEq/L (98-107) H 10/04/17 06:45 Carbon Dioxide 25.1 mEq/L (21.0-31.0) 10/04/17 06:45 Anion Gap 7.3 (7.0-16.0) 10/04/17 06:45 BUN 8 mg/dL (7-25) 10/04/17 06:45 Creatinine 0.7 mg/dL (0.7-1.3) 10/04/17 06:45 Est GFR ( Amer) TNP 10/04/17 06:45 Est GFR (Non-Af Amer) TNP 10/04/17 06:45 BUN/Creatinine Ratio 11.4 10/04/17 06:45 Glucose 121 mg/dL (70-105) H 10/04/17 06:45 POC Glucose 133 MG/DL (70 - 105) H 10/01/17 09:17 Calcium 7.5 mg/dL (8.6-10.3) L 10/04/17 06:45 Magnesium 1.6 mg/dL (1.9-2.7) L 09/30/17 22:10 Total Bilirubin 0.5 mg/dL (0.3-1.0) 10/04/17 06:45 AST 20 U/L (13-39) 10/04/17 06:45 ALT 13 U/L (7-52) 10/04/17 06:45 Alkaline Phosphatase 60 U/L (34-104) 10/04/17 06:45 Total Protein 5.0 gm/dL (6.0-8.3) L 10/04/17 06:45 Albumin 2.8 gm/dL (4.2-5.5) L 10/04/17 06:45 Globulin 2.2 gm/dL 10/04/17 06:45 Albumin/Globulin Ratio 1.3 (1.0-1.8) 10/04/17 06:45 Lipase 8 U/L (11-82) L 09/30/17 22:10 Urine Source RANDOM 10/01/17 06:06 Urine Color YELLOW 10/01/17 06:06 Urine Clarity CLEAR (CLEAR) 10/01/17 06:06 Urine pH 5.5 (4.6 - 8.0) 10/01/17 06:06 Ur Specific [place] 1.020 (1.005-1.030) 10/01/17 06:06 Urine Protein NEGATIVE mg/dL (NEGATIVE) 10/01/17 06:06 Urine Glucose (UA) NEGATIVE mg/dL (NEGATIVE) 10/01/17 06:06 Urine Ketones NEGATIVE mg/dL (NEGATIVE) 10/01/17 06:06 Urine Blood NEGATIVE (NEGATIVE) 10/01/17 06:06 Urine Nitrate NEGATIVE (NEGATIVE) 10/01/17 06:06 Urine Bilirubin NEGATIVE (NEGATIVE) 10/01/17 06:06 Urine Urobilinogen 0.2 E.U./dL (0.2 - 1.0) 10/01/17 06:06 Ur Leukocyte Esterase NEGATIVE (NEGATIVE) 10/01/17 06:06 Urine RBC 0-2 /hpf (0-5) H 10/01/17 06:06 Urine WBC 0-2 /hpf (0-5) 10/01/17 06:06 Ur Epithelial Cells FEW /lpf (FEW) 10/01/17 06:06 Urine Bacteria OCCASIONAL /hpf (NONE SEEN) 10/01/17 06:06 Urine Mucus FEW /lpf (FEW) 10/01/17 06:06 - Physical Exam Vitals and I&O: Vital Signs Temp 97.5 F 10/04/17 08:00 Pulse 63 10/04/17 08:00 Resp 17 10/04/17 08:00 BP 157/70 10/04/17 08:00 Pulse Ox 97 10/04/17 08:00 Intake & Output 10/03/17 10/04/17 10/04/17 18:59 06:59 18:59 Intake Total 200 200 200 Output Total 350 300 Balance 200 -150 -100 Weight (lbs) 91.172 kg 75.75 kg Intake: Intake, IV Amount 200 Piperacillin Sodium/ 100 Tazobact 4.5 gm In Sodium Chloride 0.9% 100 ml @ 100 mls/hr IV Q8HR [facility] Rx #:[id number] metroNIDAZOLE 500mg/NS 100 100mL 500 mg In Premix Fluid 1 bag @ 100 mls/hr IV Q8HR [facility] Rx#:[id number] Oral 200 200 Output: Drainage 40 Left Abdomen 40 Urine 300 300 Stool 0 Other 10 Other: # Voids 100 # Bowel Movements 0 Active Medications: Current Medications Acetaminophen (Tylenol) 650 mg PO Q4H PRN PRN Reason: Pain Or Fever above 101 Stop: 11/30/17 15:24 Albuterol/Ipratropium (Duoneb Neb) 3 ml HHN Q2HRT PRN PRN Reason: Shortness of Breath or Wheeze Stop: 11/30/17 15:31 Fluoxetine HCl (Prozac) 10 mg PO DAILY [facility] PRN Reason: Protocol Stop: 12/03/17 08:59 Last Admin: 10/04/17 09:10 Dose: 10 mg Dextrose/Sodium Chloride (D5-0.9%Ns) 1,000 mls @ 70 mls/hr IV .[id number] [facility] Stop: 11/30/17 00:59 Levofloxacin (Levaquin) 500 mg PO DAILY [facility] Stop: 12/03/17 08:59 Last Admin: 10/04/17 09:10 Dose: 500 mg Metronidazole (Flagyl) 500 mg PO BID [facility] Stop: 10/10/17 09:01 Last Admin: 10/04/17 09:10 Dose: 500 mg Morphine Sulfate (Morphine) 2 mg IVP Q2H PRN PRN Reason: Abdominal Pain Stop: 11/30/17 00:39 Last Admin: 10/04/17 00:57 Dose: 2 mg Ondansetron HCl (Zofran) 4 mg IV Q8H PRN PRN Reason: Nausea / Vomiting Stop: 11/30/17 15:24 Potassium Chloride (Klor-Con) 20 meq PO X1 ONE Stop: 10/04/17 13:19 Zolpidem Tartrate (Ambien) 10 mg PO HS PRN PRN Reason: Insomnia Stop: 11/30/17 15:24 Last Admin: 10/03/17 21:58 Dose: 10 mg General: alert HEENT: NC/AT, PERRLA Neck: Supple Lungs: CTAB Cardiovascular: RRR, Normal S1, Normal S2 Abdomen: soft, non-tender, non-distended Neurological: alert, muscle weakness - Procedures Procedures: Procedures Procedure Code Date RECTUM SURGERY PROCEDURE 27883 09/30/17 RESECTION OF SIGMOID COLON, OPEN APPROACH [id number] 09/30/17 Internal Medicine Assmt/Plan - Assessment Assessment: - Assessment Assessment: abdominal pain perforated bowel s/p resection colostomy kidney stones hyponatremia thrombocytopenia - Plan Plan: pain mgmt NM renal on tomorrow incentive spirometry follow up labs in am continue current plan of care - Plan Plan: see orders
[2017-10-04] MEDS ORDERED: Potassium Chloride 20 mEq ER Tab PO ONE (15:00)
[2017-10-04] MEDS ORDERED: Probiotic Screen MC PRN (15:51)
--- NOTE | 2017-10-04 19:34 | Infectious Disease Prog Note ---
Infectious Disease Subjective - Review of Systems Service Date: 10/04/17 Subjective: No new change, no fever. Doing well. Infectious Disease Objective - Results Result Diagrams: 10/05/17 05:50 10/05/17 05:50 Recent Labs: Laboratory Last Values WBC 5.0 Th/cmm (4.8-10.8) D 10/04/17 06:45 RBC 4.32 Mil/cmm (3.80-5.80) 10/04/17 06:45 Hgb 12.6 gm/dL (12-16) 10/04/17 06:45 Hct 37.8 % (41.0-60) L 10/04/17 06:45 MCV 87.5 fl (80-99) 10/04/17 06:45 MCH 29.2 pg (27.0-31.0) 10/04/17 06:45 MCHC Differential 33.3 pg (28.0-36.0) 10/04/17 06:45 RDW 13.5 % (11.5-20.0) 10/04/17 06:45 Plt Count 163 Th/cmm (150-400) D 10/04/17 06:45 MPV 7.0 fl 10/04/17 06:45 Neutrophils % 78.7 % (40.0-80.0) 10/03/17 05:24 Band Neutrophils % 1 % (0-10) 10/04/17 06:45 Lymphocytes % 11.4 % (20.0-50.0) L 10/03/17 05:24 Monocytes % 6.4 % (2.0-10.0) 10/03/17 05:24 Eosinophils % 3.2 % (0.0-5.0) 10/03/17 05:24 Basophils % 0.3 % (0.0-2.0) 10/03/17 05:24 Neutrophils (Manual) 66 % (40-80) 10/04/17 06:45 Lymphocytes 13 % (20-50) L 10/04/17 06:45 Monocytes 5 % (2-10) 10/04/17 06:45 Eosinophils 15 % (0-5) H 10/04/17 06:45 Platelet Estimate ADEQUATE (NORMAL) 09/30/17 22:10 PT 9.9 SECONDS (9.5-11.5) 09/30/17 22:23 INR 0.95 (0.5-1.4) 09/30/17 22:23 PTT (Actin FS) 20.9 SECONDS (26.0-38.0) L 09/30/17 22:23 Sodium 141 mEq/L (136-145) 10/04/17 06:45 Potassium 3.4 mEq/L (3.5-5.1) L 10/04/17 06:45 Chloride 112 mEq/L (98-107) H 10/04/17 06:45 Carbon Dioxide 25.1 mEq/L (21.0-31.0) 10/04/17 06:45 Anion Gap 7.3 (7.0-16.0) 10/04/17 06:45 BUN 8 mg/dL (7-25) 10/04/17 06:45 Creatinine 0.7 mg/dL (0.7-1.3) 10/04/17 06:45 Est GFR ( Amer) TNP 10/04/17 06:45 Est GFR (Non-Af Amer) TNP 10/04/17 06:45 BUN/Creatinine Ratio 11.4 10/04/17 06:45 Glucose 121 mg/dL (70-105) H 10/04/17 06:45 POC Glucose 133 MG/DL (70 - 105) H 10/01/17 09:17 Calcium 7.5 mg/dL (8.6-10.3) L 10/04/17 06:45 Magnesium 1.6 mg/dL (1.9-2.7) L 09/30/17 22:10 Total Bilirubin 0.5 mg/dL (0.3-1.0) 10/04/17 06:45 AST 20 U/L (13-39) 10/04/17 06:45 ALT 13 U/L (7-52) 10/04/17 06:45 Alkaline Phosphatase 60 U/L (34-104) 10/04/17 06:45 Total Protein 5.0 gm/dL (6.0-8.3) L 10/04/17 06:45 Albumin 2.8 gm/dL (4.2-5.5) L 10/04/17 06:45 Globulin 2.2 gm/dL 10/04/17 06:45 Albumin/Globulin Ratio 1.3 (1.0-1.8) 10/04/17 06:45 Lipase 8 U/L (11-82) L 09/30/17 22:10 Urine Source RANDOM 10/01/17 06:06 Urine Color YELLOW 10/01/17 06:06 Urine Clarity CLEAR (CLEAR) 10/01/17 06:06 Urine pH 5.5 (4.6 - 8.0) 10/01/17 06:06 Ur Specific [place] 1.020 (1.005-1.030) 10/01/17 06:06 Urine Protein NEGATIVE mg/dL (NEGATIVE) 10/01/17 06:06 Urine Glucose (UA) NEGATIVE mg/dL (NEGATIVE) 10/01/17 06:06 Urine Ketones NEGATIVE mg/dL (NEGATIVE) 10/01/17 06:06 Urine Blood NEGATIVE (NEGATIVE) 10/01/17 06:06 Urine Nitrate NEGATIVE (NEGATIVE) 10/01/17 06:06 Urine Bilirubin NEGATIVE (NEGATIVE) 10/01/17 06:06 Urine Urobilinogen 0.2 E.U./dL (0.2 - 1.0) 10/01/17 06:06 Ur Leukocyte Esterase NEGATIVE (NEGATIVE) 10/01/17 06:06 Urine RBC 0-2 /hpf (0-5) H 10/01/17 06:06 Urine WBC 0-2 /hpf (0-5) 10/01/17 06:06 Ur Epithelial Cells FEW /lpf (FEW) 10/01/17 06:06 Urine Bacteria OCCASIONAL /hpf (NONE SEEN) 10/01/17 06:06 Urine Mucus FEW /lpf (FEW) 10/01/17 06:06 - Physical Exam Vitals and I&O: Vital Signs Temp 97.5 F 10/04/17 08:00 Pulse 63 10/04/17 08:00 Resp 17 10/04/17 08:00 BP 172/81 10/04/17 14:13 Pulse Ox 97 10/04/17 08:00 Intake & Output 10/04/17 10/04/17 10/05/17 06:59 18:59 06:59 Intake Total 200 200 Output Total 350 300 Balance -150 -100 Weight (lbs) 91.172 kg 75.75 kg Intake: Oral 200 200 Output: Drainage 40 Left Abdomen 40 Urine 300 300 Stool 0 Other 10 Other: # Voids 100 # Bowel Movements 0 Active Medications: Current Medications Acetaminophen (Tylenol) 650 mg PO Q4H PRN PRN Reason: Pain Or Fever above 101 Stop: 11/30/17 15:24 Albuterol/Ipratropium (Duoneb Neb) 3 ml HHN Q2HRT PRN PRN Reason: Shortness of Breath or Wheeze Stop: 11/30/17 15:31 Fluoxetine HCl (Prozac) 10 mg PO DAILY [facility] PRN Reason: Protocol Stop: 12/03/17 08:59 Last Admin: 10/04/17 09:10 Dose: 10 mg Dextrose/Sodium Chloride (D5-0.9%Ns) 1,000 mls @ 70 mls/hr IV .[id number] [facility] Stop: 11/30/17 00:59 Last Admin: 10/04/17 18:41 Dose: 70 mls/hr Lactobacillus Rhamnosus (Culturelle 15b) 1 each PO DAILY [facility] Stop: 12/04/17 08:59 Levofloxacin (Levaquin) 500 mg PO DAILY [facility] Stop: 12/03/17 08:59 Last Admin: 10/04/17 09:10 Dose: 500 mg Metronidazole (Flagyl) 500 mg PO BID [facility] Stop: 10/10/17 09:01 Last Admin: 10/04/17 16:51 Dose: 500 mg Miscellaneous (Probiotic Screen) 1 ea [facility] PRN PRN PRN Reason: PROTOCOL Stop: 12/03/17 15:50 Morphine Sulfate (Morphine) 2 mg IVP Q2H PRN PRN Reason: Abdominal Pain Stop: 11/30/17 00:39 Last Admin: 10/04/17 18:23 Dose: 2 mg Ondansetron HCl (Zofran) 4 mg IV Q8H PRN PRN Reason: Nausea / Vomiting Stop: 11/30/17 15:24 Zolpidem Tartrate (Ambien) 10 mg PO HS PRN PRN Reason: Insomnia Stop: 11/30/17 15:24 Last Admin: 10/03/17 21:58 Dose: 10 mg General: no acute distress, well developed, well nourished HEENT: atraumatic, normocephalic, PERRLA, EOMI, moist mucous membrane Neck: supple, no thyromegaly Cardiovascular: S1S2, regular Lungs: clear to auscultation bilaterally, clear to percussion Abdomen: soft, tender, other (surgical incision is intact.), no distended Extremities: no cyanosis, no clubbing, no edema Neurological: awake, alert, oriented Skin: intact - Procedures Procedures: Procedures Procedure Code Date RECTUM SURGERY PROCEDURE 51574 09/30/17 RESECTION OF SIGMOID COLON, OPEN APPROACH [id number] 09/30/17 Infectious Disease Assmt/Plan - Assessment Assessment: 1. peritonitis 2/2 perforated diverticulitis. 2. Right sided hydronephrosis. 3. s/p exploratory laparotomy, colectomy and colostomy. - Plan Plan: will change zosyn to levaquin and flagyl po for 6 days from now. .
[2017-10-05 06:34] LABS: EOSINOPHILE ABSOLUTE 0.8 Th/cmm (0.1-0.4); HEMATOCRIT 40.7 % (41.0-60); HEMOGLOBIN 13.6 gm/dL (12-16); LYMPHOCYTE ABSOLUTE 0.2 Th/cmm (1.5-3.0); MANUAL DIFF REQUIRED? YES; MEAN CELL VOLUME 87.4 fl (80-99); MEAN CORPUSCULAR HEMOGLOBIN 29.1 pg (27.0-31.0); MEAN CORPUSCULAR HGB CONC 33.3 pg (28.0-36.0); MEAN PLATELET VOLUME 7.1 fl; MONOCYTE ABSOLUTE 1.6 Th/cmm (0.3-1.0); NEUTROPHILE ABSOLUTE 2.7 Th/cmm (1.8-8.0); PLATELET COUNT 191 Th/cmm (150-400); RED BLOOD COUNT 4.66 Mil/cmm (3.80-5.80); RED CELL DISTRIBUTION WIDTH 13.4 % (11.5-20.0); WHITE BLOOD COUNT 5.3 Th/cmm (4.8-10.8)
[2017-10-05 06:49] LABS: ALB/GLOB RATIO 1.3 (1.0-1.8); ALBUMIN 3.2 gm/dL (4.2-5.5); ALKALINE PHOSPHATASE 68 U/L (34-104); ANION GAP 10.1 (7.0-16.0); BILIRUBIN,TOTAL 0.6 mg/dL (0.3-1.0); BUN - UREA NITROGEN 11 mg/dL (7-25); CALCIUM SERUM 8.1 mg/dL (8.6-10.3); CARBON DIOXIDE 26.1 mEq/L (21.0-31.0); CHLORIDE 109 mEq/L (98-107); CREATININE - SERUM 0.8 mg/dL (0.7-1.3); GLUCOSE 102 mg/dL (70-105); POTASSIUM SERUM 3.2 mEq/L (3.5-5.1); SGOT 22 U/L (13-39); SGPT/ALT 15 U/L (7-52); SODIUM SERUM 142 mEq/L (136-145); TOTAL PROTEIN,SERUM 5.6 gm/dL (6.0-8.3)
[2017-10-05 07:42] LABS: BAND NEUTROPHILE 1 % (0-10); EOSINOPHIL 13 % (0-5); LYMPHOCYTE 20 % (20-50); MONOCYTE 5 % (2-10); NEUTROPHILS 61 % (40-80); TOTAL CELLS COUNTED 100
[2017-10-05] MEDS: Lactobacillus Rhamnosus GG 15 Billion CFU CAP.SPRINK PO SCH (08:44)
--- NOTE | 2017-10-05 08:55 | Diagnostic Imaging Report ---
Radionuclide 3 phase renal scan with Lasix HISTORY: Abnormal renal function 5.9 mCi technetium MAG3 was used. 40 mg of Lasix administered intravenously. Initial perfusion and subsequent sequential delayed images were obtained. The initial perfusion/blood flow images demonstrate symmetrical activity to both kidneys. There is markedly delayed excretion associated with the right kidney. Findings consistent with obstruction. Normal perfusion associated with the left kidney. Normal clearance and excretion. IMPRESSION: 1. Findings consistent with obstruction involving the right kidney as noted above.
--- NOTE | 2017-10-05 12:56 | Infectious Disease Prog Note ---
Infectious Disease Subjective - Review of Systems Service Date: 10/05/17 Subjective: No new change, no fever. Doing well. Infectious Disease Objective - Results Result Diagrams: 10/05/17 05:50 10/05/17 05:50 Recent Labs: Laboratory Last Values WBC 5.3 Th/cmm (4.8-10.8) 10/05/17 05:50 RBC 4.66 Mil/cmm (3.80-5.80) 10/05/17 05:50 Hgb 13.6 gm/dL (12-16) 10/05/17 05:50 Hct 40.7 % (41.0-60) L 10/05/17 05:50 MCV 87.4 fl (80-99) 10/05/17 05:50 MCH 29.1 pg (27.0-31.0) 10/05/17 05:50 MCHC Differential 33.3 pg (28.0-36.0) 10/05/17 05:50 RDW 13.4 % (11.5-20.0) 10/05/17 05:50 Plt Count 191 Th/cmm (150-400) 10/05/17 05:50 MPV 7.1 fl 10/05/17 05:50 Neutrophils % 78.7 % (40.0-80.0) 10/03/17 05:24 Band Neutrophils % 1 % (0-10) 10/05/17 05:50 Lymphocytes % 11.4 % (20.0-50.0) L 10/03/17 05:24 Monocytes % 6.4 % (2.0-10.0) 10/03/17 05:24 Eosinophils % 3.2 % (0.0-5.0) 10/03/17 05:24 Basophils % 0.3 % (0.0-2.0) 10/03/17 05:24 Neutrophils (Manual) 61 % (40-80) 10/05/17 05:50 Lymphocytes 20 % (20-50) 10/05/17 05:50 Monocytes 5 % (2-10) 10/05/17 05:50 Eosinophils 13 % (0-5) H 10/05/17 05:50 Platelet Estimate ADEQUATE (NORMAL) 09/30/17 22:10 PT 9.9 SECONDS (9.5-11.5) 09/30/17 22:23 INR 0.95 (0.5-1.4) 09/30/17 22:23 PTT (Actin FS) 20.9 SECONDS (26.0-38.0) L 09/30/17 22:23 Sodium 142 mEq/L (136-145) 10/05/17 05:50 Potassium 3.2 mEq/L (3.5-5.1) L 10/05/17 05:50 Chloride 109 mEq/L (98-107) H 10/05/17 05:50 Carbon Dioxide 26.1 mEq/L (21.0-31.0) 10/05/17 05:50 Anion Gap 10.1 (7.0-16.0) 10/05/17 05:50 BUN 11 mg/dL (7-25) 10/05/17 05:50 Creatinine 0.8 mg/dL (0.7-1.3) 10/05/17 05:50 Est GFR ( Amer) TNP 10/05/17 05:50 Est GFR (Non-Af Amer) TNP 10/05/17 05:50 BUN/Creatinine Ratio 13.8 10/05/17 05:50 Glucose 102 mg/dL (70-105) 10/05/17 05:50 POC Glucose 133 MG/DL (70 - 105) H 10/01/17 09:17 Calcium 8.1 mg/dL (8.6-10.3) L 10/05/17 05:50 Magnesium 1.6 mg/dL (1.9-2.7) L 09/30/17 22:10 Total Bilirubin 0.6 mg/dL (0.3-1.0) 10/05/17 05:50 AST 22 U/L (13-39) 10/05/17 05:50 ALT 15 U/L (7-52) 10/05/17 05:50 Alkaline Phosphatase 68 U/L (34-104) 10/05/17 05:50 B-Natriuretic Peptide 2060.0 pg/mL (5.0-100.0) H 10/05/17 05:50 Total Protein 5.6 gm/dL (6.0-8.3) L 10/05/17 05:50 Albumin 3.2 gm/dL (4.2-5.5) L 10/05/17 05:50 Globulin 2.4 gm/dL 10/05/17 05:50 Albumin/Globulin Ratio 1.3 (1.0-1.8) 10/05/17 05:50 Lipase 8 U/L (11-82) L 09/30/17 22:10 Urine Source RANDOM 10/01/17 06:06 Urine Color YELLOW 10/01/17 06:06 Urine Clarity CLEAR (CLEAR) 10/01/17 06:06 Urine pH 5.5 (4.6 - 8.0) 10/01/17 06:06 Ur Specific [place] 1.020 (1.005-1.030) 10/01/17 06:06 Urine Protein NEGATIVE mg/dL (NEGATIVE) 10/01/17 06:06 Urine Glucose (UA) NEGATIVE mg/dL (NEGATIVE) 10/01/17 06:06 Urine Ketones NEGATIVE mg/dL (NEGATIVE) 10/01/17 06:06 Urine Blood NEGATIVE (NEGATIVE) 10/01/17 06:06 Urine Nitrate NEGATIVE (NEGATIVE) 10/01/17 06:06 Urine Bilirubin NEGATIVE (NEGATIVE) 10/01/17 06:06 Urine Urobilinogen 0.2 E.U./dL (0.2 - 1.0) 10/01/17 06:06 Ur Leukocyte Esterase NEGATIVE (NEGATIVE) 10/01/17 06:06 Urine RBC 0-2 /hpf (0-5) H 10/01/17 06:06 Urine WBC 0-2 /hpf (0-5) 10/01/17 06:06 Ur Epithelial Cells FEW /lpf (FEW) 10/01/17 06:06 Urine Bacteria OCCASIONAL /hpf (NONE SEEN) 10/01/17 06:06 Urine Mucus FEW /lpf (FEW) 10/01/17 06:06 - Physical Exam Vitals and I&O: Vital Signs Temp 97.6 F 10/05/17 08:06 Pulse 59 10/05/17 08:06 Resp 18 10/05/17 08:06 BP 167/76 10/05/17 08:06 Pulse Ox 98 10/05/17 08:06 Intake & Output 10/04/17 10/05/17 10/05/17 18:59 06:59 18:59 Intake Total 200 500 Output Total 300 1230 Balance -100 -730 Weight (lbs) 75.75 kg 87.09 kg Intake: Oral 200 500 Output: Drainage 30 Left Abdomen 30 Urine 300 1200 Other: # Bowel Movements 3 Stool Characteristics Soft Liquid Brown Active Medications: Current Medications Acetaminophen (Tylenol) 650 mg PO Q4H PRN PRN Reason: Pain Or Fever above 101 Stop: 11/30/17 15:24 Albuterol/Ipratropium (Duoneb Neb) 3 ml HHN Q2HRT PRN PRN Reason: Shortness of Breath or Wheeze Stop: 11/30/17 15:31 Fluoxetine HCl (Prozac) 10 mg PO DAILY FLAVIO PRN Reason: Protocol Stop: 12/03/17 08:59 Last Admin: 10/05/17 08:42 Dose: 10 mg Dextrose/Sodium Chloride (D5-0.9%Ns) 1,000 mls @ 70 mls/hr IV .[id number] [facility] [place] Stop: 11/30/17 00:59 Last Admin: 10/04/17 18:41 Dose: 70 mls/hr Lactobacillus Rhamnosus (Culturelle 15b) 1 each PO DAILY [facility] [place] Stop: 12/04/17 08:59 Last Admin: 10/05/17 08:44 Dose: 1 each Levofloxacin (Levaquin) 500 mg PO DAILY [facility] [place] Stop: 12/03/17 08:59 Last Admin: 10/05/17 08:44 Dose: 500 mg Metronidazole (Flagyl) 500 mg PO BID [facility] [place] Stop: 10/10/17 09:01 Last Admin: 10/05/17 08:42 Dose: 500 mg Miscellaneous (Probiotic Screen) 1 ea MC PRN PRN PRN Reason: PROTOCOL Stop: 12/03/17 15:50 Morphine Sulfate (Morphine) 2 mg IVP Q2H PRN PRN Reason: Abdominal Pain Stop: 11/30/17 00:39 Last Admin: 10/04/17 23:05 Dose: 2 mg Ondansetron HCl (Zofran) 4 mg IV Q8H PRN PRN Reason: Nausea / Vomiting Stop: 11/30/17 15:24 Zolpidem Tartrate (Ambien) 10 mg PO HS PRN PRN Reason: Insomnia Stop: 11/30/17 15:24 Last Admin: 10/03/17 21:58 Dose: 10 mg General: no acute distress, well developed, well nourished HEENT: atraumatic, normocephalic, PERRLA, EOMI, moist mucous membrane Neck: supple, no thyromegaly Cardiovascular: S1S2, regular Lungs: clear to auscultation bilaterally, clear to percussion Abdomen: soft, drain (genna x 1), no tender, no distended, no mass Extremities: no cyanosis, no clubbing, no edema Neurological: awake, alert, oriented Skin: intact - Procedures Procedures: Procedures Procedure Code Date RECTUM SURGERY PROCEDURE [id number] 09/30/17 RESECTION OF SIGMOID COLON, OPEN APPROACH [id number] 09/30/17 Infectious Disease Assmt/Plan - Assessment Assessment: 1. peritonitis 2/2 perforated diverticulitis. 2. Right sided hydronephrosis. 3. s/p exploratory laparotomy, colectomy and colostomy. - Plan Plan: contonue levaquin and flagyl po for 5 days from now.
--- NOTE | 2017-10-05 13:36 | Internal Medicine Prog Note ---
Internal Medicine Subjective - Subjective Patient seen and examined:: with staff, chart reviewed Patient is:: awake, verbal, interactive, in bed, talking Patient Complaints of:: bloated Per staff patient has:: no adverse event, poor oral intake, unstable gait, tolerating meds Internal Medicine Objective - Results Result Diagrams: 10/05/17 05:50 10/05/17 05:50 Recent Labs: Laboratory Last Values WBC 5.3 Th/cmm (4.8-10.8) 10/05/17 05:50 RBC 4.66 Mil/cmm (3.80-5.80) 10/05/17 05:50 Hgb 13.6 gm/dL (12-16) 10/05/17 05:50 Hct 40.7 % (41.0-60) L 10/05/17 05:50 MCV 87.4 fl (80-99) 10/05/17 05:50 MCH 29.1 pg (27.0-31.0) 10/05/17 05:50 MCHC Differential 33.3 pg (28.0-36.0) 10/05/17 05:50 RDW 13.4 % (11.5-20.0) 10/05/17 05:50 Plt Count 191 Th/cmm (150-400) 10/05/17 05:50 MPV 7.1 fl 10/05/17 05:50 Neutrophils % 78.7 % (40.0-80.0) 10/03/17 05:24 Band Neutrophils % 1 % (0-10) 10/05/17 05:50 Lymphocytes % 11.4 % (20.0-50.0) L 10/03/17 05:24 Monocytes % 6.4 % (2.0-10.0) 10/03/17 05:24 Eosinophils % 3.2 % (0.0-5.0) 10/03/17 05:24 Basophils % 0.3 % (0.0-2.0) 10/03/17 05:24 Neutrophils (Manual) 61 % (40-80) 10/05/17 05:50 Lymphocytes 20 % (20-50) 10/05/17 05:50 Monocytes 5 % (2-10) 10/05/17 05:50 Eosinophils 13 % (0-5) H 10/05/17 05:50 Platelet Estimate ADEQUATE (NORMAL) 09/30/17 22:10 PT 9.9 SECONDS (9.5-11.5) 09/30/17 22:23 INR 0.95 (0.5-1.4) 09/30/17 22:23 PTT (Actin FS) 20.9 SECONDS (26.0-38.0) L 09/30/17 22:23 Sodium 142 mEq/L (136-145) 10/05/17 05:50 Potassium 3.2 mEq/L (3.5-5.1) L 10/05/17 05:50 Chloride 109 mEq/L (98-107) H 10/05/17 05:50 Carbon Dioxide 26.1 mEq/L (21.0-31.0) 10/05/17 05:50 Anion Gap 10.1 (7.0-16.0) 10/05/17 05:50 BUN 11 mg/dL (7-25) 10/05/17 05:50 Creatinine 0.8 mg/dL (0.7-1.3) 10/05/17 05:50 Est GFR ( Amer) TNP 10/05/17 05:50 Est GFR (Non-Af Amer) TNP 10/05/17 05:50 BUN/Creatinine Ratio 13.8 10/05/17 05:50 Glucose 102 mg/dL (70-105) 10/05/17 05:50 POC Glucose 133 MG/DL (70 - 105) H 10/01/17 09:17 Calcium 8.1 mg/dL (8.6-10.3) L 10/05/17 05:50 Magnesium 1.6 mg/dL (1.9-2.7) L 09/30/17 22:10 Total Bilirubin 0.6 mg/dL (0.3-1.0) 10/05/17 05:50 AST 22 U/L (13-39) 10/05/17 05:50 ALT 15 U/L (7-52) 10/05/17 05:50 Alkaline Phosphatase 68 U/L (34-104) 10/05/17 05:50 B-Natriuretic Peptide 2060.0 pg/mL (5.0-100.0) H 10/05/17 05:50 Total Protein 5.6 gm/dL (6.0-8.3) L 10/05/17 05:50 Albumin 3.2 gm/dL (4.2-5.5) L 10/05/17 05:50 Globulin 2.4 gm/dL 10/05/17 05:50 Albumin/Globulin Ratio 1.3 (1.0-1.8) 10/05/17 05:50 Lipase 8 U/L (11-82) L 09/30/17 22:10 Urine Source RANDOM 10/01/17 06:06 Urine Color YELLOW 10/01/17 06:06 Urine Clarity CLEAR (CLEAR) 10/01/17 06:06 Urine pH 5.5 (4.6 - 8.0) 10/01/17 06:06 Ur Specific [place] 1.020 (1.005-1.030) 10/01/17 06:06 Urine Protein NEGATIVE mg/dL (NEGATIVE) 10/01/17 06:06 Urine Glucose (UA) NEGATIVE mg/dL (NEGATIVE) 10/01/17 06:06 Urine Ketones NEGATIVE mg/dL (NEGATIVE) 10/01/17 06:06 Urine Blood NEGATIVE (NEGATIVE) 10/01/17 06:06 Urine Nitrate NEGATIVE (NEGATIVE) 10/01/17 06:06 Urine Bilirubin NEGATIVE (NEGATIVE) 10/01/17 06:06 Urine Urobilinogen 0.2 E.U./dL (0.2 - 1.0) 10/01/17 06:06 Ur Leukocyte Esterase NEGATIVE (NEGATIVE) 10/01/17 06:06 Urine RBC 0-2 /hpf (0-5) H 10/01/17 06:06 Urine WBC 0-2 /hpf (0-5) 10/01/17 06:06 Ur Epithelial Cells FEW /lpf (FEW) 10/01/17 06:06 Urine Bacteria OCCASIONAL /hpf (NONE SEEN) 10/01/17 06:06 Urine Mucus FEW /lpf (FEW) 10/01/17 06:06 - Physical Exam Vitals and I&O: Vital Signs Temp 97.6 F 10/05/17 08:06 Pulse 59 10/05/17 08:06 Resp 18 10/05/17 08:06 BP 167/76 10/05/17 08:06 Pulse Ox 98 10/05/17 08:06 Intake & Output 10/04/17 10/05/17 10/05/17 18:59 06:59 18:59 Intake Total 200 500 Output Total 300 1230 Balance -100 -730 Weight (lbs) 75.75 kg 87.09 kg Intake: Oral 200 500 Output: Drainage 30 Left Abdomen 30 Urine 300 1200 Other: # Bowel Movements 3 Stool Characteristics Soft Liquid Brown Active Medications: Current Medications Acetaminophen (Tylenol) 650 mg PO Q4H PRN PRN Reason: Pain Or Fever above 101 Stop: 11/30/17 15:24 Albuterol/Ipratropium (Duoneb Neb) 3 ml HHN Q2HRT PRN PRN Reason: Shortness of Breath or Wheeze Stop: 11/30/17 15:31 Fluoxetine HCl (Prozac) 10 mg PO DAILY FLAVIO PRN Reason: Protocol Stop: 12/03/17 08:59 Last Admin: 10/05/17 08:42 Dose: 10 mg Dextrose/Sodium Chloride (D5-0.9%Ns) 1,000 mls @ 40 mls/hr IV .Q24H [facility] Stop: 11/30/17 00:59 Lactobacillus Rhamnosus (Culturelle 15b) 1 each PO DAILY [facility] Stop: 12/04/17 08:59 Last Admin: 10/05/17 08:44 Dose: 1 each Levofloxacin (Levaquin) 500 mg PO DAILY [facility] Stop: 12/03/17 08:59 Last Admin: 10/05/17 08:44 Dose: 500 mg Metronidazole (Flagyl) 500 mg PO BID [facility] Stop: 10/10/17 09:01 Last Admin: 10/05/17 08:42 Dose: 500 mg Miscellaneous (Probiotic Screen) 1 ea MC PRN PRN PRN Reason: PROTOCOL Stop: 12/03/17 15:50 Morphine Sulfate (Morphine) 2 mg IVP Q2H PRN PRN Reason: Abdominal Pain Stop: 11/30/17 00:39 Last Admin: 10/04/17 23:05 Dose: 2 mg Ondansetron HCl (Zofran) 4 mg IV Q8H PRN PRN Reason: Nausea / Vomiting Stop: 11/30/17 15:24 Potassium Chloride (Klor-Con) 40 meq PO X1 ONE Stop: 10/05/17 13:35 Zolpidem Tartrate (Ambien) 10 mg PO HS PRN PRN Reason: Insomnia Stop: 11/30/17 15:24 Last Admin: 10/03/17 21:58 Dose: 10 mg General: alert HEENT: NC/AT, PERRLA Neck: Supple Lungs: CTAB Cardiovascular: RRR, Normal S1, Normal S2 Abdomen: soft, non-tender, non-distended Neurological: alert, muscle weakness - Procedures Procedures: Procedures Procedure Code Date RECTUM SURGERY PROCEDURE 65595 09/30/17 RESECTION OF SIGMOID COLON, OPEN APPROACH [id number] 09/30/17 Internal Medicine Assmt/Plan - Assessment Assessment: - Assessment Assessment: abdominal pain perforated bowel s/p resection colostomy kidney stones hyponatremia thrombocytopenia - Plan Plan: pain mgmt NM renal on tomorrow incentive spirometry follow up labs in am continue current plan of care - Plan Plan: see orders
--- NOTE | 2017-10-05 16:53 | General Progress Note ---
Subjective - Review of Systems Service Date: 10/05/17 Events since last encounter: labs ok eating well with good ostomy output Urologist to decide on stent, etc Objective - Results Result Diagrams: 10/05/17 05:50 10/05/17 05:50 Recent Labs: Laboratory Last Values WBC 5.3 Th/cmm (4.8-10.8) 10/05/17 05:50 RBC 4.66 Mil/cmm (3.80-5.80) 10/05/17 05:50 Hgb 13.6 gm/dL (12-16) 10/05/17 05:50 Hct 40.7 % (41.0-60) L 10/05/17 05:50 MCV 87.4 fl (80-99) 10/05/17 05:50 MCH 29.1 pg (27.0-31.0) 10/05/17 05:50 MCHC Differential 33.3 pg (28.0-36.0) 10/05/17 05:50 RDW 13.4 % (11.5-20.0) 10/05/17 05:50 Plt Count 191 Th/cmm (150-400) 10/05/17 05:50 MPV 7.1 fl 10/05/17 05:50 Neutrophils % 78.7 % (40.0-80.0) 10/03/17 05:24 Band Neutrophils % 1 % (0-10) 10/05/17 05:50 Lymphocytes % 11.4 % (20.0-50.0) L 10/03/17 05:24 Monocytes % 6.4 % (2.0-10.0) 10/03/17 05:24 Eosinophils % 3.2 % (0.0-5.0) 10/03/17 05:24 Basophils % 0.3 % (0.0-2.0) 10/03/17 05:24 Neutrophils (Manual) 61 % (40-80) 10/05/17 05:50 Lymphocytes 20 % (20-50) 10/05/17 05:50 Monocytes 5 % (2-10) 10/05/17 05:50 Eosinophils 13 % (0-5) H 10/05/17 05:50 Platelet Estimate ADEQUATE (NORMAL) 09/30/17 22:10 PT 9.9 SECONDS (9.5-11.5) 09/30/17 22:23 INR 0.95 (0.5-1.4) 09/30/17 22:23 PTT (Actin FS) 20.9 SECONDS (26.0-38.0) L 09/30/17 22:23 Sodium 142 mEq/L (136-145) 10/05/17 05:50 Potassium 3.2 mEq/L (3.5-5.1) L 10/05/17 05:50 Chloride 109 mEq/L (98-107) H 10/05/17 05:50 Carbon Dioxide 26.1 mEq/L (21.0-31.0) 10/05/17 05:50 Anion Gap 10.1 (7.0-16.0) 10/05/17 05:50 BUN 11 mg/dL (7-25) 10/05/17 05:50 Creatinine 0.8 mg/dL (0.7-1.3) 10/05/17 05:50 Est GFR ( Amer) TNP 10/05/17 05:50 Est GFR (Non-Af Amer) TNP 10/05/17 05:50 BUN/Creatinine Ratio 13.8 10/05/17 05:50 Glucose 102 mg/dL (70-105) 10/05/17 05:50 POC Glucose 133 MG/DL (70 - 105) H 10/01/17 09:17 Calcium 8.1 mg/dL (8.6-10.3) L 10/05/17 05:50 Magnesium 1.6 mg/dL (1.9-2.7) L 09/30/17 22:10 Total Bilirubin 0.6 mg/dL (0.3-1.0) 10/05/17 05:50 AST 22 U/L (13-39) 10/05/17 05:50 ALT 15 U/L (7-52) 10/05/17 05:50 Alkaline Phosphatase 68 U/L (34-104) 10/05/17 05:50 B-Natriuretic Peptide 2060.0 pg/mL (5.0-100.0) H 10/05/17 05:50 Total Protein 5.6 gm/dL (6.0-8.3) L 10/05/17 05:50 Albumin 3.2 gm/dL (4.2-5.5) L 10/05/17 05:50 Globulin 2.4 gm/dL 10/05/17 05:50 Albumin/Globulin Ratio 1.3 (1.0-1.8) 10/05/17 05:50 Lipase 8 U/L (11-82) L 09/30/17 22:10 Urine Source RANDOM 10/01/17 06:06 Urine Color YELLOW 10/01/17 06:06 Urine Clarity CLEAR (CLEAR) 10/01/17 06:06 Urine pH 5.5 (4.6 - 8.0) 10/01/17 06:06 Ur Specific [place] 1.020 (1.005-1.030) 10/01/17 06:06 Urine Protein NEGATIVE mg/dL (NEGATIVE) 10/01/17 06:06 Urine Glucose (UA) NEGATIVE mg/dL (NEGATIVE) 10/01/17 06:06 Urine Ketones NEGATIVE mg/dL (NEGATIVE) 10/01/17 06:06 Urine Blood NEGATIVE (NEGATIVE) 10/01/17 06:06 Urine Nitrate NEGATIVE (NEGATIVE) 10/01/17 06:06 Urine Bilirubin NEGATIVE (NEGATIVE) 10/01/17 06:06 Urine Urobilinogen 0.2 E.U./dL (0.2 - 1.0) 10/01/17 06:06 Ur Leukocyte Esterase NEGATIVE (NEGATIVE) 10/01/17 06:06 Urine RBC 0-2 /hpf (0-5) H 10/01/17 06:06 Urine WBC 0-2 /hpf (0-5) 10/01/17 06:06 Ur Epithelial Cells FEW /lpf (FEW) 10/01/17 06:06 Urine Bacteria OCCASIONAL /hpf (NONE SEEN) 10/01/17 06:06 Urine Mucus FEW /lpf (FEW) 10/01/17 06:06 - Physical Exam Vitals and I&O: Vital Signs Temp 97.5 F 10/05/17 16:00 Pulse 68 10/05/17 16:00 Resp 18 10/05/17 16:00 BP 155/71 10/05/17 16:00 Pulse Ox 96 10/05/17 16:00 Intake & Output 10/04/17 10/05/17 10/05/17 18:59 06:59 18:59 Intake Total 200 500 420 Output Total 300 1230 Balance -100 -730 420 Weight (lbs) 75.75 kg 87.09 kg 87.09 kg Intake: Oral 200 500 420 Output: Drainage 30 Left Abdomen 30 Urine 300 1200 Other: # Bowel Movements 3 Stool Characteristics Soft Liquid Liquid Brown Brown Active Medications: Current Medications Acetaminophen (Tylenol) 650 mg PO Q4H PRN PRN Reason: Pain Or Fever above 101 Stop: 11/30/17 15:24 Albuterol/Ipratropium (Duoneb Neb) 3 ml HHN Q2HRT PRN PRN Reason: Shortness of Breath or Wheeze Stop: 11/30/17 15:31 Fluoxetine HCl (Prozac) 10 mg PO DAILY FLAVIO PRN Reason: Protocol Stop: 12/03/17 08:59 Last Admin: 10/05/17 08:42 Dose: 10 mg Dextrose/Sodium Chloride (D5-0.9%Ns) 1,000 mls @ 40 mls/hr IV .Q24H [facility] Stop: 11/30/17 00:59 Lactobacillus Rhamnosus (Culturelle 15b) 1 each PO DAILY [facility] Stop: 12/04/17 08:59 Last Admin: 10/05/17 08:44 Dose: 1 each Levofloxacin (Levaquin) 500 mg PO DAILY [facility] Stop: 12/03/17 08:59 Last Admin: 10/05/17 08:44 Dose: 500 mg Metronidazole (Flagyl) 500 mg PO BID [facility] Stop: 10/10/17 09:01 Last Admin: 10/05/17 08:42 Dose: 500 mg Miscellaneous (Probiotic Screen) 1 ea MC PRN PRN PRN Reason: PROTOCOL Stop: 12/03/17 15:50 Morphine Sulfate (Morphine) 2 mg IVP Q2H PRN PRN Reason: Abdominal Pain Stop: 11/30/17 00:39 Last Admin: 10/04/17 23:05 Dose: 2 mg Ondansetron HCl (Zofran) 4 mg IV Q8H PRN PRN Reason: Nausea / Vomiting Stop: 11/30/17 15:24 Potassium Chloride (Klor-Con) 40 meq PO X1 ONE Stop: 10/05/17 13:35 Zolpidem Tartrate (Ambien) 10 mg PO HS PRN PRN Reason: Insomnia Stop: 11/30/17 15:24 Last Admin: 10/03/17 21:58 Dose: 10 mg - Procedures Procedures: Procedures Procedure Code Date RECTUM SURGERY PROCEDURE 09522 09/30/17 RESECTION OF SIGMOID COLON, OPEN APPROACH [id number] 09/30/17 Nutritional Asmnt/Malnutr-PDOC - Dietary Evaluation Malnutrition Findings (Please click <Entered> for more info): Nutritional Asmnt/Malnutrition Start: 10/05/17 16: 21 Text: Status: Complete Freq: Document 10/05/17 16:21 NAYE (Rec: 10/05/17 16:30 [email or web address] Nutritional Asmnt/Malnutrition Patient General Information Nutritional Screening Moderate Risk Diagnosis perforated bowel Pertinent Medical Hx/Surgical Hx HTN, depression, d/p kidney surgery Subjective Information Pt had surgery on 10/01. Diet advanced to regular from 10/04 dinner. Pt seen lying in bed at time of visit, awake and alert. Pt stated he felt better, ate about 75% of lunch , tolerated regular food. Current Diet Order/ Nutrition Support regular Pertinent Medications d5-0.9%, culturelle, levaquin, flagyl, kcl Pertinent Labs 10/05 Na 142, K 3.2, Cl 109, BUN 11, Cr 0.8, Glucose 102, Ca 8.1, Alb 3.2 Nutritional Hx/Data Height 1.78 m Height (Calculated Centimeters) 177.8 Current Weight (lbs) 87.09 kg Weight (Calculated Kilograms) 87.1 Weight (Calculated Grams) 07382.7 [place] Body Weight 166 % [place] Body Weight 116 Body Mass Index (BMI) 27.5 Weight Status Overweight GI Symptoms GI Symptoms None Last BM 10/04 x 3 Difficult in: None Skin Integrity/Comment: intact Current %PO Good (75-100%) Estimated Nutritional Goals Calories/Kcals/Kg 25-30 Kcals Calculated 7185-0499 Protein g/k-1.2 Protein Calculated 70-84 Fluid: ml 1875-2100ml (1ml/kcal) Nutritional Problem No current Nutrition Prob Problem N/A Intervention/Recommendation Comments 1. Continue with current diet as ordered. Encouraged to eat balanced meal, try to each few bites of each food. Pt verbalized understanding. 2. Monitor PO intake, wt, labs and skin integrity 3. F/U as moderate risk in 3-5 days, 10/08-10/10 Expected Outcomes/Goals Expected Outcomes/Goals 1. PO intake to meet at least 75% of nutritional needs. 2. Wt stability, skin to remain intact, labs to approach WNL.
[2017-10-05] MEDS ORDERED: Potassium Chloride 20 mEq ER Tab PO ONE (17:00)
[2017-10-05] MEDS: D5-0.9%NS 1,000 ML IV SCH (17:39)
[2017-10-05] MEDS: Morphine Sulfate 2 mg/mL 1mL Syr IVP PRN ×2 (17:57→20:48)
--- NOTE | 2017-10-06 00:02 | Progress Notes ---
DATE: 10/05/2017 UROLOGY PROGRESS NOTE SUBJECTIVE: The patient was seen earlier today in preparation of his stent placement for the right hydronephrosis. Renal scan with Lasix came back showing obstruction in the right kidney. Unfortunately, they did not do the differential functional study, which I had requested as well. OBJECTIVE: VITAL SIGNS: On exam, his temperature is 97.5, heart rate 80, and blood pressure 155/71. ABDOMEN: Soft. Colostomy functioning well. Pain reducing from the surgery and no flank pain from the kidney. EXTREMITIES: No edema. HEART: Sounds normal. No murmur. LABORATORY DATA: Renal scan showed obstruction in the right kidney. White count 5.3 and hemoglobin 13.6. Electrolytes normal. BUN 11 and creatinine 0.8. IMPRESSION: Right hydronephrosis, most likely ureteropelvic junction obstruction, which is most likely acquired and therefore, we will proceed with a stent placement and then definitive treatment after he has recovered from his colon and abdominal problems to consider a pyeloplasty after starting a differential renal function with the stent in place. He will follow with me in the office for that once the stent is functioning satisfactorily. He understands the plan and wants to proceed. He has a small 2-mm stones in each kidney that also have to be observed. JOB# [id number]
[2017-10-06 06:07] LABS: % BASOPHILS 0.5 % (0.0-2.0); % EOSINOPHILS 7.7 % (0.0-5.0); % MONOCYTES 8.8 % (2.0-10.0); EOSINOPHILE ABSOLUTE 0.4 Th/cmm (0.1-0.4); HEMATOCRIT 39.5 % (41.0-60); HEMOGLOBIN 13.3 gm/dL (12-16); LYMPHOCYTE ABSOLUTE 0.9 Th/cmm (1.5-3.0); MEAN CELL VOLUME 86.8 fl (80-99); MEAN CORPUSCULAR HEMOGLOBIN 29.2 pg (27.0-31.0); MEAN CORPUSCULAR HGB CONC 33.6 pg (28.0-36.0); MEAN PLATELET VOLUME 6.9 fl; MONOCYTE ABSOLUTE 0.4 Th/cmm (0.3-1.0); NEUTROPHILE ABSOLUTE 3.3 Th/cmm (1.8-8.0); PLATELET COUNT 211 Th/cmm (150-400); RED BLOOD COUNT 4.55 Mil/cmm (3.80-5.80); RED CELL DISTRIBUTION WIDTH 13.2 % (11.5-20.0)
[2017-10-06 06:20] LABS: INR 0.99 (0.5-1.4); PROTHROMBIN TIME (TEST) 10.3 SECONDS (9.5-11.5)
[2017-10-06 06:22] LABS: ALB/GLOB RATIO 1.4 (1.0-1.8); ALBUMIN 3.3 gm/dL (4.2-5.5); ALKALINE PHOSPHATASE 70 U/L (34-104); ANION GAP 9.1 (7.0-16.0); BILIRUBIN,TOTAL 0.6 mg/dL (0.3-1.0); BUN - UREA NITROGEN 14 mg/dL (7-25); CALCIUM SERUM 8.4 mg/dL (8.6-10.3); CARBON DIOXIDE 27.3 mEq/L (21.0-31.0); CHLORIDE 110 mEq/L (98-107); CREATININE - SERUM 0.8 mg/dL (0.7-1.3); GLUCOSE 104 mg/dL (70-105); MAGNESIUM 1.7 mg/dL (1.9-2.7); POTASSIUM SERUM 3.4 mEq/L (3.5-5.1); SGOT 25 U/L (13-39); SGPT/ALT 20 U/L (7-52); SODIUM SERUM 143 mEq/L (136-145); TOTAL PROTEIN,SERUM 5.7 gm/dL (6.0-8.3)
--- NOTE | 2017-10-06 08:48 | General Progress Note ---
Subjective - Review of Systems Service Date: 10/06/17 Events since last encounter: for stent placement today Objective - Results Result Diagrams: 10/06/17 06:00 10/06/17 06:00 Recent Labs: Laboratory Last Values WBC 5.0 Th/cmm (4.8-10.8) 10/06/17 06:00 RBC 4.55 Mil/cmm (3.80-5.80) 10/06/17 06:00 Hgb 13.3 gm/dL (12-16) 10/06/17 06:00 Hct 39.5 % (41.0-60) L 10/06/17 06:00 MCV 86.8 fl (80-99) 10/06/17 06:00 MCH 29.2 pg (27.0-31.0) 10/06/17 06:00 MCHC Differential 33.6 pg (28.0-36.0) 10/06/17 06:00 RDW 13.2 % (11.5-20.0) 10/06/17 06:00 Plt Count 211 Th/cmm (150-400) 10/06/17 06:00 MPV 6.9 fl 10/06/17 06:00 Neutrophils % 65.0 % (40.0-80.0) 10/06/17 06:00 Band Neutrophils % 1 % (0-10) 10/05/17 05:50 Lymphocytes % 18.0 % (20.0-50.0) L 10/06/17 06:00 Monocytes % 8.8 % (2.0-10.0) 10/06/17 06:00 Eosinophils % 7.7 % (0.0-5.0) H 10/06/17 06:00 Basophils % 0.5 % (0.0-2.0) 10/06/17 06:00 Neutrophils (Manual) 61 % (40-80) 10/05/17 05:50 Lymphocytes 20 % (20-50) 10/05/17 05:50 Monocytes 5 % (2-10) 10/05/17 05:50 Eosinophils 13 % (0-5) H 10/05/17 05:50 Platelet Estimate ADEQUATE (NORMAL) 09/30/17 22:10 PT 10.3 SECONDS (9.5-11.5) 10/06/17 06:00 INR 0.99 (0.5-1.4) 10/06/17 06:00 PTT (Actin FS) 24.5 SECONDS (26.0-38.0) L 10/06/17 06:00 Sodium 143 mEq/L (136-145) 10/06/17 06:00 Potassium 3.4 mEq/L (3.5-5.1) L 10/06/17 06:00 Chloride 110 mEq/L (98-107) H 10/06/17 06:00 Carbon Dioxide 27.3 mEq/L (21.0-31.0) 10/06/17 06:00 Anion Gap 9.1 (7.0-16.0) 10/06/17 06:00 BUN 14 mg/dL (7-25) 10/06/17 06:00 Creatinine 0.8 mg/dL (0.7-1.3) 10/06/17 06:00 Est GFR ( Amer) TNP 10/06/17 06:00 Est GFR (Non-Af Amer) TNP 10/06/17 06:00 BUN/Creatinine Ratio 17.5 10/06/17 06:00 Glucose 104 mg/dL (70-105) 10/06/17 06:00 POC Glucose 133 MG/DL (70 - 105) H 10/01/17 09:17 Calcium 8.4 mg/dL (8.6-10.3) L 10/06/17 06:00 Magnesium 1.7 mg/dL (1.9-2.7) L 10/06/17 06:00 Total Bilirubin 0.6 mg/dL (0.3-1.0) 10/06/17 06:00 AST 25 U/L (13-39) 10/06/17 06:00 ALT 20 U/L (7-52) 10/06/17 06:00 Alkaline Phosphatase 70 U/L (34-104) 10/06/17 06:00 B-Natriuretic Peptide 2060.0 pg/mL (5.0-100.0) H 10/05/17 05:50 Total Protein 5.7 gm/dL (6.0-8.3) L 10/06/17 06:00 Albumin 3.3 gm/dL (4.2-5.5) L 10/06/17 06:00 Globulin 2.4 gm/dL 10/06/17 06:00 Albumin/Globulin Ratio 1.4 (1.0-1.8) 10/06/17 06:00 Lipase 8 U/L (11-82) L 09/30/17 22:10 Urine Source RANDOM 10/01/17 06:06 Urine Color YELLOW 10/01/17 06:06 Urine Clarity CLEAR (CLEAR) 10/01/17 06:06 Urine pH 5.5 (4.6 - 8.0) 10/01/17 06:06 Ur Specific [place] 1.020 (1.005-1.030) 10/01/17 06:06 Urine Protein NEGATIVE mg/dL (NEGATIVE) 10/01/17 06:06 Urine Glucose (UA) NEGATIVE mg/dL (NEGATIVE) 10/01/17 06:06 Urine Ketones NEGATIVE mg/dL (NEGATIVE) 10/01/17 06:06 Urine Blood NEGATIVE (NEGATIVE) 10/01/17 06:06 Urine Nitrate NEGATIVE (NEGATIVE) 10/01/17 06:06 Urine Bilirubin NEGATIVE (NEGATIVE) 10/01/17 06:06 Urine Urobilinogen 0.2 E.U./dL (0.2 - 1.0) 10/01/17 06:06 Ur Leukocyte Esterase NEGATIVE (NEGATIVE) 10/01/17 06:06 Urine RBC 0-2 /hpf (0-5) H 10/01/17 06:06 Urine WBC 0-2 /hpf (0-5) 10/01/17 06:06 Ur Epithelial Cells FEW /lpf (FEW) 10/01/17 06:06 Urine Bacteria OCCASIONAL /hpf (NONE SEEN) 10/01/17 06:06 Urine Mucus FEW /lpf (FEW) 10/01/17 06:06 - Physical Exam Vitals and I&O: Vital Signs Temp 97.7 F 10/06/17 08:36 Pulse 63 10/06/17 08:36 Resp 18 10/06/17 08:36 BP 176/80 10/06/17 08:36 Pulse Ox 97 10/06/17 04:00 Intake & Output 10/05/17 10/06/17 10/06/17 18:59 06:59 18:59 Intake Total 420 240 Output Total 140 Balance 420 100 Weight (lbs) 87.09 kg 87.09 kg Intake: Oral 420 240 Output: Drainage 40 Left Abdomen 40 Stool 100 Other: # Voids 2 Stool Characteristics Liquid Liquid Brown Brown Active Medications: Current Medications Acetaminophen (Tylenol) 650 mg PO Q4H PRN PRN Reason: Pain Or Fever above 101 Stop: 11/30/17 15:24 Albuterol/Ipratropium (Duoneb Neb) 3 ml HHN Q2HRT PRN PRN Reason: Shortness of Breath or Wheeze Stop: 11/30/17 15:31 Fluoxetine HCl (Prozac) 10 mg PO DAILY FLAVIO PRN Reason: Protocol Stop: 12/03/17 08:59 Last Admin: 10/05/17 08:42 Dose: 10 mg Dextrose/Sodium Chloride (D5-0.9%Ns) 1,000 mls @ 40 mls/hr IV .Q24H [facility] Stop: 11/30/17 00:59 Last Admin: 10/05/17 17:39 Dose: 40 mls/hr Lactobacillus Rhamnosus (Culturelle 15b) 1 each PO DAILY [facility] Stop: 12/04/17 08:59 Last Admin: 10/05/17 08:44 Dose: 1 each Levofloxacin (Levaquin) 500 mg PO DAILY [facility] Stop: 12/03/17 08:59 Last Admin: 10/05/17 08:44 Dose: 500 mg Metronidazole (Flagyl) 500 mg PO BID [facility] Stop: 10/10/17 09:01 Last Admin: 10/05/17 17:38 Dose: 500 mg Miscellaneous (Probiotic Screen) 1 ea MC PRN PRN PRN Reason: PROTOCOL Stop: 12/03/17 15:50 Morphine Sulfate (Morphine) 2 mg IVP Q2H PRN PRN Reason: Abdominal Pain Stop: 11/30/17 00:39 Last Admin: 10/05/17 20:48 Dose: 2 mg Ondansetron HCl (Zofran) 4 mg IV Q8H PRN PRN Reason: Nausea / Vomiting Stop: 11/30/17 15:24 Zolpidem Tartrate (Ambien) 10 mg PO HS PRN PRN Reason: Insomnia Stop: 11/30/17 15:24 Last Admin: 10/03/17 21:58 Dose: 10 mg - Procedures Procedures: Procedures Procedure Code Date RECTUM SURGERY PROCEDURE 30418 09/30/17 RESECTION OF SIGMOID COLON, OPEN APPROACH [id number] 09/30/17 Nutritional Asmnt/Malnutr-PDOC - Dietary Evaluation Malnutrition Findings (Please click <Entered> for more info): Nutritional Asmnt/Malnutrition Start: 10/05/17 16: 21 Text: Status: Complete Freq: Document 10/05/17 16:21 DAVID (Rec: 10/05/17 16:30 [email or web address] [email or web address]) Nutritional Asmnt/Malnutrition Patient General Information Nutritional Screening Moderate Risk Diagnosis perforated bowel Pertinent Medical Hx/Surgical Hx HTN, depression, d/p kidney surgery Subjective Information Pt had surgery on 10/01. Diet advanced to regular from 10/04 dinner. Pt seen lying in bed at time of visit, awake and alert. Pt stated he felt better, ate about 75% of lunch , tolerated regular food. Current Diet Order/ Nutrition Support regular Pertinent Medications d5-0.9%, culturelle, levaquin, flagyl, kcl Pertinent Labs 10/05 Na 142, K 3.2, Cl 109, BUN 11, Cr 0.8, Glucose 102, Ca 8.1, Alb 3.2 Nutritional Hx/Data Height 1.78 m Height (Calculated Centimeters) 177.8 Current Weight (lbs) 87.09 kg Weight (Calculated Kilograms) 87.1 Weight (Calculated Grams) 59889.7 [place] Body Weight 166 % [place] Body Weight 116 Body Mass Index (BMI) 27.5 Weight Status Overweight GI Symptoms GI Symptoms None Last BM 10/04 x 3 Difficult in: None Skin Integrity/Comment: intact Current %PO Good (75-100%) Estimated Nutritional Goals Calories/Kcals/Kg 25-30 Kcals Calculated 6233-5549 Protein g/k-1.2 Protein Calculated 70-84 Fluid: ml 1875-2100ml (1ml/kcal) Nutritional Problem No current Nutrition Prob Problem N/A Intervention/Recommendation Comments 1. Continue with current diet as ordered. Encouraged to eat balanced meal, try to each few bites of each food. Pt verbalized understanding. 2. Monitor PO intake, wt, labs and skin integrity 3. F/U as moderate risk in 3-5 days, 10/08-10/10 Expected Outcomes/Goals Expected Outcomes/Goals 1. PO intake to meet at least 75% of nutritional needs. 2. Wt stability, skin to remain intact, labs to approach WNL.
[2017-10-06] MEDS: Lactobacillus Rhamnosus GG 15 Billion CFU CAP.SPRINK PO SCH (09:37)
[2017-10-06] MEDS ORDERED: IOHEXOL 300mgI/mL 50 ML VIAL ONE (12:54)
[2017-10-06] MEDS ORDERED: fentaNYL Citrate 100 mcg/2mL Vial ONE (13:14)
--- NOTE | 2017-10-06 13:37 | Internal Medicine Prog Note ---
Internal Medicine Subjective - Subjective Service Date: 10/06/17 (currently in [place] ) Internal Medicine Objective - Results Result Diagrams: 10/06/17 06:00 10/06/17 06:00 Recent Labs: Laboratory Last Values WBC 5.0 Th/cmm (4.8-10.8) 10/06/17 06:00 RBC 4.55 Mil/cmm (3.80-5.80) 10/06/17 06:00 Hgb 13.3 gm/dL (12-16) 10/06/17 06:00 Hct 39.5 % (41.0-60) L 10/06/17 06:00 MCV 86.8 fl (80-99) 10/06/17 06:00 MCH 29.2 pg (27.0-31.0) 10/06/17 06:00 MCHC Differential 33.6 pg (28.0-36.0) 10/06/17 06:00 RDW 13.2 % (11.5-20.0) 10/06/17 06:00 Plt Count 211 Th/cmm (150-400) 10/06/17 06:00 MPV 6.9 fl 10/06/17 06:00 Neutrophils % 65.0 % (40.0-80.0) 10/06/17 06:00 Band Neutrophils % 1 % (0-10) 10/05/17 05:50 Lymphocytes % 18.0 % (20.0-50.0) L 10/06/17 06:00 Monocytes % 8.8 % (2.0-10.0) 10/06/17 06:00 Eosinophils % 7.7 % (0.0-5.0) H 10/06/17 06:00 Basophils % 0.5 % (0.0-2.0) 10/06/17 06:00 Neutrophils (Manual) 61 % (40-80) 10/05/17 05:50 Lymphocytes 20 % (20-50) 10/05/17 05:50 Monocytes 5 % (2-10) 10/05/17 05:50 Eosinophils 13 % (0-5) H 10/05/17 05:50 Platelet Estimate ADEQUATE (NORMAL) 09/30/17 22:10 PT 10.3 SECONDS (9.5-11.5) 10/06/17 06:00 INR 0.99 (0.5-1.4) 10/06/17 06:00 PTT (Actin FS) 24.5 SECONDS (26.0-38.0) L 10/06/17 06:00 Sodium 143 mEq/L (136-145) 10/06/17 06:00 Potassium 3.4 mEq/L (3.5-5.1) L 10/06/17 06:00 Chloride 110 mEq/L (98-107) H 10/06/17 06:00 Carbon Dioxide 27.3 mEq/L (21.0-31.0) 10/06/17 06:00 Anion Gap 9.1 (7.0-16.0) 10/06/17 06:00 BUN 14 mg/dL (7-25) 10/06/17 06:00 Creatinine 0.8 mg/dL (0.7-1.3) 10/06/17 06:00 Est GFR ( Amer) TNP 10/06/17 06:00 Est GFR (Non-Af Amer) TNP 10/06/17 06:00 BUN/Creatinine Ratio 17.5 10/06/17 06:00 Glucose 104 mg/dL (70-105) 10/06/17 06:00 POC Glucose 77 MG/DL (70 - 105) 10/06/17 12:33 Calcium 8.4 mg/dL (8.6-10.3) L 10/06/17 06:00 Magnesium 1.7 mg/dL (1.9-2.7) L 10/06/17 06:00 Total Bilirubin 0.6 mg/dL (0.3-1.0) 10/06/17 06:00 AST 25 U/L (13-39) 10/06/17 06:00 ALT 20 U/L (7-52) 10/06/17 06:00 Alkaline Phosphatase 70 U/L (34-104) 10/06/17 06:00 B-Natriuretic Peptide 2060.0 pg/mL (5.0-100.0) H 10/05/17 05:50 Total Protein 5.7 gm/dL (6.0-8.3) L 10/06/17 06:00 Albumin 3.3 gm/dL (4.2-5.5) L 10/06/17 06:00 Globulin 2.4 gm/dL 10/06/17 06:00 Albumin/Globulin Ratio 1.4 (1.0-1.8) 10/06/17 06:00 Lipase 8 U/L (11-82) L 09/30/17 22:10 Urine Source RANDOM 10/01/17 06:06 Urine Color YELLOW 10/01/17 06:06 Urine Clarity CLEAR (CLEAR) 10/01/17 06:06 Urine pH 5.5 (4.6 - 8.0) 10/01/17 06:06 Ur Specific [place] 1.020 (1.005-1.030) 10/01/17 06:06 Urine Protein NEGATIVE mg/dL (NEGATIVE) 10/01/17 06:06 Urine Glucose (UA) NEGATIVE mg/dL (NEGATIVE) 10/01/17 06:06 Urine Ketones NEGATIVE mg/dL (NEGATIVE) 10/01/17 06:06 Urine Blood NEGATIVE (NEGATIVE) 10/01/17 06:06 Urine Nitrate NEGATIVE (NEGATIVE) 10/01/17 06:06 Urine Bilirubin NEGATIVE (NEGATIVE) 10/01/17 06:06 Urine Urobilinogen 0.2 E.U./dL (0.2 - 1.0) 10/01/17 06:06 Ur Leukocyte Esterase NEGATIVE (NEGATIVE) 10/01/17 06:06 Urine RBC 0-2 /hpf (0-5) H 10/01/17 06:06 Urine WBC 0-2 /hpf (0-5) 10/01/17 06:06 Ur Epithelial Cells FEW /lpf (FEW) 10/01/17 06:06 Urine Bacteria OCCASIONAL /hpf (NONE SEEN) 10/01/17 06:06 Urine Mucus FEW /lpf (FEW) 10/01/17 06:06 - Physical Exam Vitals and I&O: Vital Signs Temp 98.7 F 10/06/17 12:10 Pulse 59 10/06/17 12:10 Resp 18 10/06/17 12:10 BP 182/89 10/06/17 12:10 Pulse Ox 99 10/06/17 12:10 Intake & Output 10/05/17 10/06/17 10/06/17 18:59 06:59 18:59 Intake Total 420 240 Output Total 140 Balance 420 100 Weight (lbs) 192 lb 192 lb Intake: Oral 420 240 Output: Drainage 40 Left Abdomen 40 Stool 100 Other: # Voids 2 Stool Characteristics Liquid Liquid Soft Brown Brown Liquid Brown Green Active Medications: Current Medications Acetaminophen (Tylenol) 650 mg PO Q4H PRN PRN Reason: Pain Or Fever above 101 Stop: 11/30/17 15:24 Albuterol/Ipratropium (Duoneb Neb) 3 ml HHN Q2HRT PRN PRN Reason: Shortness of Breath or Wheeze Stop: 11/30/17 15:31 Fluoxetine HCl (Prozac) 10 mg PO DAILY FLAVIO PRN Reason: Protocol Stop: 12/03/17 08:59 Last Admin: 10/06/17 09:37 Dose: Not Given Dextrose/Sodium Chloride (D5-0.9%Ns) 1,000 mls @ 40 mls/hr IV .Q24H [facility] Stop: 11/30/17 00:59 Last Admin: 10/05/17 17:39 Dose: 40 mls/hr Lactobacillus Rhamnosus (Culturelle 15b) 1 each PO DAILY [facility] Stop: 12/04/17 08:59 Last Admin: 10/06/17 09:37 Dose: Not Given Levofloxacin (Levaquin) 500 mg PO DAILY [facility] Stop: 12/03/17 08:59 Last Admin: 10/06/17 09:37 Dose: Not Given Metronidazole (Flagyl) 500 mg PO BID [facility] Stop: 10/10/17 09:01 Last Admin: 10/06/17 09:38 Dose: Not Given Miscellaneous (Probiotic Screen) 1 ea MC PRN PRN PRN Reason: PROTOCOL Stop: 12/03/17 15:50 Morphine Sulfate (Morphine) 2 mg IVP Q2H PRN PRN Reason: Abdominal Pain Stop: 11/30/17 00:39 Last Admin: 10/05/17 20:48 Dose: 2 mg Ondansetron HCl (Zofran) 4 mg IV Q8H PRN PRN Reason: Nausea / Vomiting Stop: 11/30/17 15:24 Zolpidem Tartrate (Ambien) 10 mg PO HS PRN PRN Reason: Insomnia Stop: 11/30/17 15:24 Last Admin: 10/03/17 21:58 Dose: 10 mg General: alert HEENT: NC/AT, PERRLA Neck: Supple Lungs: CTAB Cardiovascular: RRR, Normal S1, Normal S2 Abdomen: soft, non-tender, non-distended Neurological: alert, muscle weakness - Procedures Procedures: Procedures Procedure Code Date RECTUM SURGERY PROCEDURE 89420 09/30/17 RESECTION OF SIGMOID COLON, OPEN APPROACH [id number] 09/30/17 Internal Medicine Assmt/Plan - Assessment Assessment: abdominal pain perforated bowel s/p resection colostomy kidney stones hyponatremia thrombocytopenia - Plan Plan: stent placement right kidney pain mgmt incentive spirometry follow up labs in am continue current plan of care Nutritional Asmnt/Malnutr-PDOC - Dietary Evaluation Malnutrition Findings (Please click <Entered> for more info): Nutritional Asmnt/Malnutrition Start: 10/05/17 16: 21 Text: Status: Complete Freq: Document 10/05/17 16:21 DAVID (Rec: 10/05/17 16:30 NAYE [email or web address]) Nutritional Asmnt/Malnutrition Patient General Information Nutritional Screening Moderate Risk Diagnosis perforated bowel Pertinent Medical Hx/Surgical Hx HTN, depression, d/p kidney surgery Subjective Information Pt had surgery on 10/01. Diet advanced to regular from 10/04 dinner. Pt seen lying in bed at time of visit, awake and alert. Pt stated he felt better, ate about 75% of lunch , tolerated regular food. Current Diet Order/ Nutrition Support regular Pertinent Medications d5-0.9%, culturelle, levaquin, flagyl, kcl Pertinent Labs 10/05 Na 142, K 3.2, Cl 109, BUN 11, Cr 0.8, Glucose 102, Ca 8.1, Alb 3.2 Nutritional Hx/Data Height 5 ft 10 in Height (Calculated Centimeters) 177.8 Current Weight (lbs) 192 lb Weight (Calculated Kilograms) 87.1 Weight (Calculated Grams) 25625.7 [place] Body Weight 166 % [place] Body Weight 116 Body Mass Index (BMI) 27.5 Weight Status Overweight GI Symptoms GI Symptoms None Last BM 10/04 x 3 Difficult in: None Skin Integrity/Comment: intact Current %PO Good (75-100%) Estimated Nutritional Goals Calories/Kcals/Kg 25-30 Kcals Calculated 7367-7553 Protein g/k-1.2 Protein Calculated 70-84 Fluid: ml 1875-2100ml (1ml/kcal) Nutritional Problem No current Nutrition Prob Problem N/A Intervention/Recommendation Comments 1. Continue with current diet as ordered. Encouraged to eat balanced meal, try to each few bites of each food. Pt verbalized understanding. 2. Monitor PO intake, wt, labs and skin integrity 3. F/U as moderate risk in 3-5 days, 10/08-10/10 Expected Outcomes/Goals Expected Outcomes/Goals 1. PO intake to meet at least 75% of nutritional needs. 2. Wt stability, skin to remain intact, labs to approach WNL.
--- NOTE | 2017-10-06 13:48 | Pathology Report ---
[id number] Collection date: 10/01/2017 Surgeon: Dr. Jean Marie Graf Specimen Description: Sigmoid colon Gross Description: Received in formalin is a partial resection of sigmoid colon measuring 21 cm in length x up to 3.9 cm in outer diameter. The surface of the specimen shows a 4 cm area of induration and a small amount of rausch-paredes exudate. Sectioning shows multiple diverticular outpouchings throughout he specimen with a focal area of perforation identified where the muscular wall of the colon is disrupted. The surrounding pericolic adipose tissue also shows induration and focal exudate. Examination of the proximal and distal margins shows no significant changes. Photo Stylist sections are submitted in five cassettes labeled A1 to A5. The area of perforation is seen in cassettes A2 through A4. Microscopic Description: The histologic sections show colon mucosa with multiple diverticular outpouchings consistent with colonic diverticulosis. Areas of diverticulitis are seen consisting of increased numbers of neutrophils with cassettes A2 through A4 showing focal peridiverticular abscess formation associated with disruption of the muscular wall, consistent with perforation. Diagnosis: Partial colon resection showing extensive diverticular disease and diverticulitis, with a focal area of perforation and abscess formation. [facility]# [id number] [facility] HEALTHCarlos
[2017-10-06] MEDS ORDERED: Propofol **SURGERY USE ONLY** 20 ML IV ONE (13:55)
[2017-10-06] MEDS ORDERED: Neostigmine 10mg/10mL Vial ONE (13:56)
--- NOTE | 2017-10-06 14:11 | Infectious Disease Prog Note ---
Infectious Disease Subjective - Review of Systems Service Date: 10/06/17 Events since last encounter: Cystoscopy performed today. Subjective: No new change, no fever. Doing well. Infectious Disease Objective - Results Result Diagrams: 10/06/17 06:00 10/06/17 06:00 Recent Labs: Laboratory Last Values WBC 5.0 Th/cmm (4.8-10.8) 10/06/17 06:00 RBC 4.55 Mil/cmm (3.80-5.80) 10/06/17 06:00 Hgb 13.3 gm/dL (12-16) 10/06/17 06:00 Hct 39.5 % (41.0-60) L 10/06/17 06:00 MCV 86.8 fl (80-99) 10/06/17 06:00 MCH 29.2 pg (27.0-31.0) 10/06/17 06:00 MCHC Differential 33.6 pg (28.0-36.0) 10/06/17 06:00 RDW 13.2 % (11.5-20.0) 10/06/17 06:00 Plt Count 211 Th/cmm (150-400) 10/06/17 06:00 MPV 6.9 fl 10/06/17 06:00 Neutrophils % 65.0 % (40.0-80.0) 10/06/17 06:00 Band Neutrophils % 1 % (0-10) 10/05/17 05:50 Lymphocytes % 18.0 % (20.0-50.0) L 10/06/17 06:00 Monocytes % 8.8 % (2.0-10.0) 10/06/17 06:00 Eosinophils % 7.7 % (0.0-5.0) H 10/06/17 06:00 Basophils % 0.5 % (0.0-2.0) 10/06/17 06:00 Neutrophils (Manual) 61 % (40-80) 10/05/17 05:50 Lymphocytes 20 % (20-50) 10/05/17 05:50 Monocytes 5 % (2-10) 10/05/17 05:50 Eosinophils 13 % (0-5) H 10/05/17 05:50 Platelet Estimate ADEQUATE (NORMAL) 09/30/17 22:10 PT 10.3 SECONDS (9.5-11.5) 10/06/17 06:00 INR 0.99 (0.5-1.4) 10/06/17 06:00 PTT (Actin FS) 24.5 SECONDS (26.0-38.0) L 10/06/17 06:00 Sodium 143 mEq/L (136-145) 10/06/17 06:00 Potassium 3.4 mEq/L (3.5-5.1) L 10/06/17 06:00 Chloride 110 mEq/L (98-107) H 10/06/17 06:00 Carbon Dioxide 27.3 mEq/L (21.0-31.0) 10/06/17 06:00 Anion Gap 9.1 (7.0-16.0) 10/06/17 06:00 BUN 14 mg/dL (7-25) 10/06/17 06:00 Creatinine 0.8 mg/dL (0.7-1.3) 10/06/17 06:00 Est GFR ( Amer) TNP 10/06/17 06:00 Est GFR (Non-Af Amer) TNP 10/06/17 06:00 BUN/Creatinine Ratio 17.5 10/06/17 06:00 Glucose 104 mg/dL (70-105) 10/06/17 06:00 POC Glucose 77 MG/DL (70 - 105) 10/06/17 12:33 Calcium 8.4 mg/dL (8.6-10.3) L 10/06/17 06:00 Magnesium 1.7 mg/dL (1.9-2.7) L 10/06/17 06:00 Total Bilirubin 0.6 mg/dL (0.3-1.0) 10/06/17 06:00 AST 25 U/L (13-39) 10/06/17 06:00 ALT 20 U/L (7-52) 10/06/17 06:00 Alkaline Phosphatase 70 U/L (34-104) 10/06/17 06:00 B-Natriuretic Peptide 2060.0 pg/mL (5.0-100.0) H 10/05/17 05:50 Total Protein 5.7 gm/dL (6.0-8.3) L 10/06/17 06:00 Albumin 3.3 gm/dL (4.2-5.5) L 10/06/17 06:00 Globulin 2.4 gm/dL 10/06/17 06:00 Albumin/Globulin Ratio 1.4 (1.0-1.8) 10/06/17 06:00 Lipase 8 U/L (11-82) L 09/30/17 22:10 Urine Source RANDOM 10/01/17 06:06 Urine Color YELLOW 10/01/17 06:06 Urine Clarity CLEAR (CLEAR) 10/01/17 06:06 Urine pH 5.5 (4.6 - 8.0) 10/01/17 06:06 Ur Specific [place] 1.020 (1.005-1.030) 10/01/17 06:06 Urine Protein NEGATIVE mg/dL (NEGATIVE) 10/01/17 06:06 Urine Glucose (UA) NEGATIVE mg/dL (NEGATIVE) 10/01/17 06:06 Urine Ketones NEGATIVE mg/dL (NEGATIVE) 10/01/17 06:06 Urine Blood NEGATIVE (NEGATIVE) 10/01/17 06:06 Urine Nitrate NEGATIVE (NEGATIVE) 10/01/17 06:06 Urine Bilirubin NEGATIVE (NEGATIVE) 10/01/17 06:06 Urine Urobilinogen 0.2 E.U./dL (0.2 - 1.0) 10/01/17 06:06 Ur Leukocyte Esterase NEGATIVE (NEGATIVE) 10/01/17 06:06 Urine RBC 0-2 /hpf (0-5) H 10/01/17 06:06 Urine WBC 0-2 /hpf (0-5) 10/01/17 06:06 Ur Epithelial Cells FEW /lpf (FEW) 10/01/17 06:06 Urine Bacteria OCCASIONAL /hpf (NONE SEEN) 10/01/17 06:06 Urine Mucus FEW /lpf (FEW) 10/01/17 06:06 - Physical Exam Vitals and I&O: Vital Signs Temp 98.7 F 10/06/17 12:10 Pulse 59 10/06/17 12:10 Resp 18 10/06/17 12:10 BP 182/89 10/06/17 12:10 Pulse Ox 99 10/06/17 12:10 Intake & Output 10/05/17 10/06/17 10/06/17 18:59 06:59 18:59 Intake Total 420 240 Output Total 140 Balance 420 100 Weight (lbs) 87.09 kg 87.09 kg Intake: Oral 420 240 Output: Drainage 40 Left Abdomen 40 Stool 100 Other: # Voids 2 Stool Characteristics Liquid Liquid Soft Brown Brown Liquid Brown Green Active Medications: Current Medications Acetaminophen (Tylenol) 650 mg PO Q4H PRN PRN Reason: Pain Or Fever above 101 Stop: 11/30/17 15:24 Albuterol/Ipratropium (Duoneb Neb) 3 ml HHN Q2HRT PRN PRN Reason: Shortness of Breath or Wheeze Stop: 11/30/17 15:31 Fluoxetine HCl (Prozac) 10 mg PO DAILY FLAVIO PRN Reason: Protocol Stop: 12/03/17 08:59 Last Admin: 10/06/17 09:37 Dose: Not Given Dextrose/Sodium Chloride (D5-0.9%Ns) 1,000 mls @ 40 mls/hr IV .Q24H [facility] Stop: 11/30/17 00:59 Last Admin: 10/05/17 17:39 Dose: 40 mls/hr Lactobacillus Rhamnosus (Culturelle 15b) 1 each PO DAILY [facility] Stop: 12/04/17 08:59 Last Admin: 10/06/17 09:37 Dose: Not Given Levofloxacin (Levaquin) 500 mg PO DAILY [facility] Stop: 12/03/17 08:59 Last Admin: 10/06/17 09:37 Dose: Not Given Metronidazole (Flagyl) 500 mg PO BID [facility] Stop: 10/10/17 09:01 Last Admin: 10/06/17 09:38 Dose: Not Given Miscellaneous (Probiotic Screen) 1 ea MC PRN PRN PRN Reason: PROTOCOL Stop: 12/03/17 15:50 Morphine Sulfate (Morphine) 2 mg IVP Q2H PRN PRN Reason: Abdominal Pain Stop: 11/30/17 00:39 Last Admin: 10/05/17 20:48 Dose: 2 mg Ondansetron HCl (Zofran) 4 mg IV Q8H PRN PRN Reason: Nausea / Vomiting Stop: 11/30/17 15:24 Zolpidem Tartrate (Ambien) 10 mg PO HS PRN PRN Reason: Insomnia Stop: 11/30/17 15:24 Last Admin: 10/03/17 21:58 Dose: 10 mg General: no acute distress, well developed, well nourished HEENT: atraumatic, normocephalic, PERRLA, EOMI, moist mucous membrane Neck: supple, no thyromegaly Cardiovascular: S1S2, regular, no systolic murmur Lungs: clear to auscultation bilaterally, clear to percussion Abdomen: soft, bowel sounds, other (colostomy, ONDINA drain.), no tender, no distended Extremities: no cyanosis, no clubbing, no edema Neurological: awake, alert, oriented - Procedures Procedures: Procedures Procedure Code Date RECTUM SURGERY PROCEDURE 61979 09/30/17 RESECTION OF SIGMOID COLON, OPEN APPROACH [id number] 09/30/17 Infectious Disease Assmt/Plan - Assessment Assessment: 1. peritonitis 2/2 perforated diverticulitis. 2. Right sided hydronephrosis. 3. s/p exploratory laparotomy, colectomy and colostomy. - Plan Plan: continue levaquin and flagyl po for 4 days from now. Nutritional Asmnt/Malnutr-PDOC - Dietary Evaluation Malnutrition Findings (Please click <Entered> for more info): Nutritional Asmnt/Malnutrition Start: 10/05/17 16: 21 Text: Status: Complete Freq: Document 10/05/17 16:21 [facility] (Rec: 10/05/17 16:30 HEN [email or web address]) Nutritional Asmnt/Malnutrition Patient General Information Nutritional Screening Moderate Risk Diagnosis perforated bowel Pertinent Medical Hx/Surgical Hx HTN, depression, d/p kidney surgery Subjective Information Pt had surgery on 10/01. Diet advanced to regular from 10/04 dinner. Pt seen lying in bed at time of visit, awake and alert. Pt stated he felt better, ate about 75% of lunch , tolerated regular food. Current Diet Order/ Nutrition Support regular Pertinent Medications d5-0.9%, culturelle, levaquin, flagyl, kcl Pertinent Labs 10/05 Na 142, K 3.2, Cl 109, BUN 11, Cr 0.8, Glucose 102, Ca 8.1, Alb 3.2 Nutritional Hx/Data Height 1.78 m Height (Calculated Centimeters) 177.8 Current Weight (lbs) 87.09 kg Weight (Calculated Kilograms) 87.1 Weight (Calculated Grams) 15645.7 [place] Body Weight 166 % [place] Body Weight 116 Body Mass Index (BMI) 27.5 Weight Status Overweight GI Symptoms GI Symptoms None Last BM 10/04 x 3 Difficult in: None Skin Integrity/Comment: intact Current %PO Good (75-100%) Estimated Nutritional Goals Calories/Kcals/Kg 25-30 Kcals Calculated 1657-1000 Protein g/k-1.2 Protein Calculated 70-84 Fluid: ml 1875-2100ml (1ml/kcal) Nutritional Problem No current Nutrition Prob Problem N/A Intervention/Recommendation Comments 1. Continue with current diet as ordered. Encouraged to eat balanced meal, try to each few bites of each food. Pt verbalized understanding. 2. Monitor PO intake, wt, labs and skin integrity 3. F/U as moderate risk in 3-5 days, 10/08-10/10 Expected Outcomes/Goals Expected Outcomes/Goals 1. PO intake to meet at least 75% of nutritional needs. 2. Wt stability, skin to remain intact, labs to approach WNL.
[2017-10-06] MEDS ORDERED: Potassium Chloride 20 mEq ER Tab PO ONE (15:30)
[2017-10-06] MEDS ORDERED: Mag Sulfate 2gm/50mL Premix 2 GM/50 ML BAG IV ONE (15:30)
[2017-10-06] MEDS: D5-0.9%NS 1,000 ML IV SCH (15:42)
[2017-10-06] MEDS: Morphine Sulfate 2 mg/mL 1mL Syr IVP PRN ×2 (18:51→22:38)
--- NOTE | 2017-10-06 22:31 | Operative Report ---
DATE OF SURGERY: 10/06/2017 PREOPERATIVE DIAGNOSIS: Right hydronephrosis. POSTOPERATIVE DIAGNOSIS: Right hydronephrosis and UPJ obstruction. SURGEON: Yana Cotton M.D. NAME OF PROCEDURE: Cystoscopy, right retrograde pyelogram with injection of contrast and fluoroscopy, insertion of double-J stent, size 6 x 4.5, right kidney. ANESTHESIA: General. INDICATIONS: The patient is a 76-year-old male who was found to have incidental hydronephrosis and history of stone disease as well as history of surgery for the stones over the last few years. Hydronephrosis seems to be asymptomatic at this time, but difficult to confirm whether the pain for which he was admitted was all from the bowel perforation or was also intermittently mixed with hydronephrosis. He underwent colostomy and exploration and requires few months to heal before we can address the hydronephrosis definitively but there is no suggestion of this being congenital. A stent was put in as a temporizing measure after Lasix renal scan confirmed the hydronephrosis. 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 Bladder showing some trabeculations and retrograde showing definite UPJ obstruction on the right side. A stent was placed without any difficulty. There was no blood loss or complication. DESCRIPTION OF PROCEDURE: The patient was brought to the operating room, prepped and draped in the dorsal lithotomy position after general anesthesia was induced. After dilating the urethra, the bladder was entered and examined and then the right orifice was cannulated. Contrast was injected and support films were obtained to document the UPJ obstruction with dilated renal pelvis and a narrow UPJ. A guidewire was then passed up through the catheter into the kidney with little bit of manipulation and then a 4.5 x 22 stent was inserted into the kidney without any difficulty in satisfactory position. The bladder was drained and the procedure completed without any blood loss or complication. [facility]# [id number]
[2017-10-07 06:49] LABS: ALB/GLOB RATIO 1.5 (1.0-1.8); ALBUMIN 3.4 gm/dL (4.2-5.5); ALKALINE PHOSPHATASE 72 U/L (34-104); ANION GAP 9.2 (7.0-16.0); BILIRUBIN,TOTAL 0.5 mg/dL (0.3-1.0); BUN - UREA NITROGEN 14 mg/dL (7-25); CALCIUM SERUM 8.3 mg/dL (8.6-10.3); CARBON DIOXIDE 26.6 mEq/L (21.0-31.0); CHLORIDE 108 mEq/L (98-107); CREATININE - SERUM 0.9 mg/dL (0.7-1.3); GLUCOSE 101 mg/dL (70-105); POTASSIUM SERUM 3.8 mEq/L (3.5-5.1); SGOT 29 U/L (13-39); SGPT/ALT 23 U/L (7-52); SODIUM SERUM 140 mEq/L (136-145); TOTAL PROTEIN,SERUM 5.7 gm/dL (6.0-8.3)
[2017-10-07] MEDS: Lactobacillus Rhamnosus GG 15 Billion CFU CAP.SPRINK PO SCH (09:28)
--- NOTE | 2017-10-07 09:39 | Diagnostic Imaging Report ---
Fluoroscopy was utilized to facilitation of nephroureteral stent placement. Please refer to the procedural report for complete details. The total fluoroscopic time was 1 minute and 20 seconds.
--- NOTE | 2017-10-07 13:15 | General Progress Note ---
Subjective - Review of Systems Service Date: 10/08/17 Events since last encounter: doing well labs ok arash DC to my office 1 week Objective - Results Result Diagrams: 10/06/17 06:00 10/07/17 06:00 Recent Labs: Laboratory Last Values WBC 5.0 Th/cmm (4.8-10.8) 10/06/17 06:00 RBC 4.55 Mil/cmm (3.80-5.80) 10/06/17 06:00 Hgb 13.3 gm/dL (12-16) 10/06/17 06:00 Hct 39.5 % (41.0-60) L 10/06/17 06:00 MCV 86.8 fl (80-99) 10/06/17 06:00 MCH 29.2 pg (27.0-31.0) 10/06/17 06:00 MCHC Differential 33.6 pg (28.0-36.0) 10/06/17 06:00 RDW 13.2 % (11.5-20.0) 10/06/17 06:00 Plt Count 211 Th/cmm (150-400) 10/06/17 06:00 MPV 6.9 fl 10/06/17 06:00 Neutrophils % 65.0 % (40.0-80.0) 10/06/17 06:00 Band Neutrophils % 1 % (0-10) 10/05/17 05:50 Lymphocytes % 18.0 % (20.0-50.0) L 10/06/17 06:00 Monocytes % 8.8 % (2.0-10.0) 10/06/17 06:00 Eosinophils % 7.7 % (0.0-5.0) H 10/06/17 06:00 Basophils % 0.5 % (0.0-2.0) 10/06/17 06:00 Neutrophils (Manual) 61 % (40-80) 10/05/17 05:50 Lymphocytes 20 % (20-50) 10/05/17 05:50 Monocytes 5 % (2-10) 10/05/17 05:50 Eosinophils 13 % (0-5) H 10/05/17 05:50 Platelet Estimate ADEQUATE (NORMAL) 09/30/17 22:10 PT 10.3 SECONDS (9.5-11.5) 10/06/17 06:00 INR 0.99 (0.5-1.4) 10/06/17 06:00 PTT (Actin FS) 24.5 SECONDS (26.0-38.0) L 10/06/17 06:00 Sodium 140 mEq/L (136-145) 10/07/17 06:00 Potassium 3.8 mEq/L (3.5-5.1) 10/07/17 06:00 Chloride 108 mEq/L (98-107) H 10/07/17 06:00 Carbon Dioxide 26.6 mEq/L (21.0-31.0) 10/07/17 06:00 Anion Gap 9.2 (7.0-16.0) 10/07/17 06:00 BUN 14 mg/dL (7-25) 10/07/17 06:00 Creatinine 0.9 mg/dL (0.7-1.3) 10/07/17 06:00 Est GFR ( Amer) TNP 10/07/17 06:00 Est GFR (Non-Af Amer) TNP 10/07/17 06:00 BUN/Creatinine Ratio 15.6 10/07/17 06:00 Glucose 101 mg/dL (70-105) 10/07/17 06:00 POC Glucose 77 MG/DL (70 - 105) 10/06/17 12:33 Calcium 8.3 mg/dL (8.6-10.3) L 10/07/17 06:00 Magnesium 2.0 mg/dL (1.9-2.7) 10/07/17 06:00 Total Bilirubin 0.5 mg/dL (0.3-1.0) 10/07/17 06:00 AST 29 U/L (13-39) 10/07/17 06:00 ALT 23 U/L (7-52) 10/07/17 06:00 Alkaline Phosphatase 72 U/L (34-104) 10/07/17 06:00 B-Natriuretic Peptide 2060.0 pg/mL (5.0-100.0) H 10/05/17 05:50 Total Protein 5.7 gm/dL (6.0-8.3) L 10/07/17 06:00 Albumin 3.4 gm/dL (4.2-5.5) L 10/07/17 06:00 Globulin 2.3 gm/dL 10/07/17 06:00 Albumin/Globulin Ratio 1.5 (1.0-1.8) 10/07/17 06:00 Lipase 8 U/L (11-82) L 09/30/17 22:10 Urine Source RANDOM 10/01/17 06:06 Urine Color YELLOW 10/01/17 06:06 Urine Clarity CLEAR (CLEAR) 10/01/17 06:06 Urine pH 5.5 (4.6 - 8.0) 10/01/17 06:06 Ur Specific [place] 1.020 (1.005-1.030) 10/01/17 06:06 Urine Protein NEGATIVE mg/dL (NEGATIVE) 10/01/17 06:06 Urine Glucose (UA) NEGATIVE mg/dL (NEGATIVE) 10/01/17 06:06 Urine Ketones NEGATIVE mg/dL (NEGATIVE) 10/01/17 06:06 Urine Blood NEGATIVE (NEGATIVE) 10/01/17 06:06 Urine Nitrate NEGATIVE (NEGATIVE) 10/01/17 06:06 Urine Bilirubin NEGATIVE (NEGATIVE) 10/01/17 06:06 Urine Urobilinogen 0.2 E.U./dL (0.2 - 1.0) 10/01/17 06:06 Ur Leukocyte Esterase NEGATIVE (NEGATIVE) 10/01/17 06:06 Urine RBC 0-2 /hpf (0-5) H 10/01/17 06:06 Urine WBC 0-2 /hpf (0-5) 10/01/17 06:06 Ur Epithelial Cells FEW /lpf (FEW) 10/01/17 06:06 Urine Bacteria OCCASIONAL /hpf (NONE SEEN) 10/01/17 06:06 Urine Mucus FEW /lpf (FEW) 10/01/17 06:06 - Physical Exam Vitals and I&O: Vital Signs Temp 97.7 F 10/07/17 12:00 Pulse 67 10/07/17 12:00 Resp 18 10/07/17 12:00 BP 171/84 10/07/17 12:00 Pulse Ox 100 10/07/17 12:00 Intake & Output 10/06/17 10/07/17 10/07/17 18:59 06:59 18:59 Intake Total 1132 500 720 Output Total 225 54 Balance 907 500 666 Weight (lbs) 87.271 kg 87.09 kg 87.09 kg Intake: Intake, IV Amount 882 D5-0.9%Ns 1,000 ml @ 40 882 mls/hr IV .Q24H [facility] Rx#: [id number] Oral 250 500 720 Output: Drainage 50 Left Abdomen 50 Urine 3 Stool 1 Other 225 Other: # Voids 4 4 4 # Bowel Movements 0 0 Stool Characteristics Soft Soft Soft Liquid Liquid Brown Brown Brown Green Green Green Active Medications: Current Medications Acetaminophen (Tylenol) 650 mg PO Q4H PRN PRN Reason: Pain Or Fever above 101 Stop: 11/30/17 15:24 Albuterol/Ipratropium (Duoneb Neb) 3 ml HHN Q2HRT PRN PRN Reason: Shortness of Breath or Wheeze Stop: 11/30/17 15:31 Amlodipine Besylate (Norvasc) 5 mg PO DAILY [facility] Stop: 12/06/17 08:59 Last Admin: 10/07/17 09:27 Dose: 5 mg Fluoxetine HCl (Prozac) 10 mg PO DAILY FLAVIO PRN Reason: Protocol Stop: 12/03/17 08:59 Last Admin: 10/07/17 09:28 Dose: 10 mg Dextrose/Sodium Chloride (D5-0.9%Ns) 1,000 mls @ 40 mls/hr IV .Q24H [facility] Stop: 11/30/17 00:59 Last Admin: 10/06/17 15:42 Dose: 40 mls/hr Lactobacillus Rhamnosus (Culturelle 15b) 1 each PO DAILY [facility] Stop: 12/04/17 08:59 Last Admin: 10/07/17 09:28 Dose: 1 each Levofloxacin (Levaquin) 500 mg PO DAILY [facility] Stop: 12/03/17 08:59 Last Admin: 10/07/17 09:27 Dose: 500 mg Metronidazole (Flagyl) 500 mg PO BID [facility] Stop: 10/10/17 09:01 Last Admin: 10/07/17 09:27 Dose: 500 mg Miscellaneous (Probiotic Screen) 1 ea MC PRN PRN PRN Reason: PROTOCOL Stop: 12/03/17 15:50 Morphine Sulfate (Morphine) 2 mg IVP Q2H PRN PRN Reason: Abdominal Pain Stop: 11/30/17 00:39 Last Admin: 10/06/17 22:38 Dose: 2 mg Ondansetron HCl (Zofran) 4 mg IV Q8H PRN PRN Reason: Nausea / Vomiting Stop: 11/30/17 15:24 Zolpidem Tartrate (Ambien) 10 mg PO HS PRN PRN Reason: Insomnia Stop: 11/30/17 15:24 Last Admin: 10/06/17 22:38 Dose: 10 mg - Procedures Procedures: Procedures Procedure Code Date CYSTOSCOPY 52077 09/30/17 DILATION OF URETHRA WITH INTRALUMINAL DEVICE, ENDO [id number] 09/30/17 RECTUM SURGERY PROCEDURE 82886 09/30/17 RESECTION OF SIGMOID COLON, OPEN APPROACH [id number] 09/30/17 Nutritional Asmnt/Malnutr-PDOC - Dietary Evaluation Malnutrition Findings (Please click <Entered> for more info): Nutritional Asmnt/Malnutrition Start: 10/05/17 16: 21 Text: Status: Complete Freq: Document 10/05/17 16:21 RODRIGO (Rec: 10/05/17 16:30 RODRIGO [email or web address]) Nutritional Asmnt/Malnutrition Patient General Information Nutritional Screening Moderate Risk Diagnosis perforated bowel Pertinent Medical Hx/Surgical Hx HTN, depression, d/p kidney surgery Subjective Information Pt had surgery on 10/01. Diet advanced to regular from 10/04 dinner. Pt seen lying in bed at time of visit, awake and alert. Pt stated he felt better, ate about 75% of lunch , tolerated regular food. Current Diet Order/ Nutrition Support regular Pertinent Medications d5-0.9%, culturelle, levaquin, flagyl, kcl Pertinent Labs 10/05 Na 142, K 3.2, Cl 109, BUN 11, Cr 0.8, Glucose 102, Ca 8.1, Alb 3.2 Nutritional Hx/Data Height 1.78 m Height (Calculated Centimeters) 177.8 Current Weight (lbs) 87.09 kg Weight (Calculated Kilograms) 87.1 Weight (Calculated Grams) 82842.7 [place] Body Weight 166 % [place] Body Weight 116 Body Mass Index (BMI) 27.5 Weight Status Overweight GI Symptoms GI Symptoms None Last BM 10/04 x 3 Difficult in: None Skin Integrity/Comment: intact Current %PO Good (75-100%) Estimated Nutritional Goals Calories/Kcals/Kg 25-30 Kcals Calculated 7327-1432 Protein g/k-1.2 Protein Calculated 70-84 Fluid: ml 1875-2100ml (1ml/kcal) Nutritional Problem No current Nutrition Prob Problem N/A Intervention/Recommendation Comments 1. Continue with current diet as ordered. Encouraged to eat balanced meal, try to each few bites of each food. Pt verbalized understanding. 2. Monitor PO intake, wt, labs and skin integrity 3. F/U as moderate risk in 3-5 days, 10/08-10/10 Expected Outcomes/Goals Expected Outcomes/Goals 1. PO intake to meet at least 75% of nutritional needs. 2. Wt stability, skin to remain intact, labs to approach WNL.
--- NOTE | 2017-10-07 15:03 | Internal Medicine Prog Note ---
Internal Medicine Subjective - Subjective Service Date: 10/07/17 (patient walked well with physical therapy. ) Patient is:: awake, verbal, interactive, in bed, talking Patient Complaints of:: bloated Per staff patient has:: no adverse event, poor oral intake, unstable gait, tolerating meds Internal Medicine Objective - Results Result Diagrams: 10/06/17 06:00 10/07/17 06:00 Recent Labs: Laboratory Last Values WBC 5.0 Th/cmm (4.8-10.8) 10/06/17 06:00 RBC 4.55 Mil/cmm (3.80-5.80) 10/06/17 06:00 Hgb 13.3 gm/dL (12-16) 10/06/17 06:00 Hct 39.5 % (41.0-60) L 10/06/17 06:00 MCV 86.8 fl (80-99) 10/06/17 06:00 MCH 29.2 pg (27.0-31.0) 10/06/17 06:00 MCHC Differential 33.6 pg (28.0-36.0) 10/06/17 06:00 RDW 13.2 % (11.5-20.0) 10/06/17 06:00 Plt Count 211 Th/cmm (150-400) 10/06/17 06:00 MPV 6.9 fl 10/06/17 06:00 Neutrophils % 65.0 % (40.0-80.0) 10/06/17 06:00 Band Neutrophils % 1 % (0-10) 10/05/17 05:50 Lymphocytes % 18.0 % (20.0-50.0) L 10/06/17 06:00 Monocytes % 8.8 % (2.0-10.0) 10/06/17 06:00 Eosinophils % 7.7 % (0.0-5.0) H 10/06/17 06:00 Basophils % 0.5 % (0.0-2.0) 10/06/17 06:00 Neutrophils (Manual) 61 % (40-80) 10/05/17 05:50 Lymphocytes 20 % (20-50) 10/05/17 05:50 Monocytes 5 % (2-10) 10/05/17 05:50 Eosinophils 13 % (0-5) H 10/05/17 05:50 Platelet Estimate ADEQUATE (NORMAL) 09/30/17 22:10 PT 10.3 SECONDS (9.5-11.5) 10/06/17 06:00 INR 0.99 (0.5-1.4) 10/06/17 06:00 PTT (Actin FS) 24.5 SECONDS (26.0-38.0) L 10/06/17 06:00 Sodium 140 mEq/L (136-145) 10/07/17 06:00 Potassium 3.8 mEq/L (3.5-5.1) 10/07/17 06:00 Chloride 108 mEq/L (98-107) H 10/07/17 06:00 Carbon Dioxide 26.6 mEq/L (21.0-31.0) 10/07/17 06:00 Anion Gap 9.2 (7.0-16.0) 10/07/17 06:00 BUN 14 mg/dL (7-25) 10/07/17 06:00 Creatinine 0.9 mg/dL (0.7-1.3) 10/07/17 06:00 Est GFR ( Amer) TNP 10/07/17 06:00 Est GFR (Non-Af Amer) TNP 10/07/17 06:00 BUN/Creatinine Ratio 15.6 10/07/17 06:00 Glucose 101 mg/dL (70-105) 10/07/17 06:00 POC Glucose 77 MG/DL (70 - 105) 10/06/17 12:33 Calcium 8.3 mg/dL (8.6-10.3) L 10/07/17 06:00 Magnesium 2.0 mg/dL (1.9-2.7) 10/07/17 06:00 Total Bilirubin 0.5 mg/dL (0.3-1.0) 10/07/17 06:00 AST 29 U/L (13-39) 10/07/17 06:00 ALT 23 U/L (7-52) 10/07/17 06:00 Alkaline Phosphatase 72 U/L (34-104) 10/07/17 06:00 B-Natriuretic Peptide 2060.0 pg/mL (5.0-100.0) H 10/05/17 05:50 Total Protein 5.7 gm/dL (6.0-8.3) L 10/07/17 06:00 Albumin 3.4 gm/dL (4.2-5.5) L 10/07/17 06:00 Globulin 2.3 gm/dL 10/07/17 06:00 Albumin/Globulin Ratio 1.5 (1.0-1.8) 10/07/17 06:00 Lipase 8 U/L (11-82) L 09/30/17 22:10 Urine Source RANDOM 10/01/17 06:06 Urine Color YELLOW 10/01/17 06:06 Urine Clarity CLEAR (CLEAR) 10/01/17 06:06 Urine pH 5.5 (4.6 - 8.0) 10/01/17 06:06 Ur Specific [place] 1.020 (1.005-1.030) 10/01/17 06:06 Urine Protein NEGATIVE mg/dL (NEGATIVE) 10/01/17 06:06 Urine Glucose (UA) NEGATIVE mg/dL (NEGATIVE) 10/01/17 06:06 Urine Ketones NEGATIVE mg/dL (NEGATIVE) 10/01/17 06:06 Urine Blood NEGATIVE (NEGATIVE) 10/01/17 06:06 Urine Nitrate NEGATIVE (NEGATIVE) 10/01/17 06:06 Urine Bilirubin NEGATIVE (NEGATIVE) 10/01/17 06:06 Urine Urobilinogen 0.2 E.U./dL (0.2 - 1.0) 10/01/17 06:06 Ur Leukocyte Esterase NEGATIVE (NEGATIVE) 10/01/17 06:06 Urine RBC 0-2 /hpf (0-5) H 10/01/17 06:06 Urine WBC 0-2 /hpf (0-5) 10/01/17 06:06 Ur Epithelial Cells FEW /lpf (FEW) 10/01/17 06:06 Urine Bacteria OCCASIONAL /hpf (NONE SEEN) 10/01/17 06:06 Urine Mucus FEW /lpf (FEW) 10/01/17 06:06 - Physical Exam Vitals and I&O: Vital Signs Temp 97.7 F 10/07/17 12:00 Pulse 67 10/07/17 12:00 Resp 18 10/07/17 12:00 BP 171/84 10/07/17 12:00 Pulse Ox 100 10/07/17 12:00 Intake & Output 10/06/17 10/07/17 10/07/17 18:59 06:59 18:59 Intake Total 1132 500 720 Output Total 225 54 Balance 907 500 666 Weight (lbs) 192 lb 6.4 oz 192 lb 192 lb Intake: Intake, IV Amount 882 D5-0.9%Ns 1,000 ml @ 40 882 mls/hr IV .Q24H [facility] Rx#: [id number] Oral 250 500 720 Output: Drainage 50 Left Abdomen 50 Urine 3 Stool 1 Other 225 Other: # Voids 4 4 4 # Bowel Movements 0 0 Stool Characteristics Soft Soft Soft Liquid Liquid Brown Brown Brown Green Green Green Active Medications: Current Medications Acetaminophen (Tylenol) 650 mg PO Q4H PRN PRN Reason: Pain Or Fever above 101 Stop: 11/30/17 15:24 Albuterol/Ipratropium (Duoneb Neb) 3 ml HHN Q2HRT PRN PRN Reason: Shortness of Breath or Wheeze Stop: 11/30/17 15:31 Amlodipine Besylate (Norvasc) 5 mg PO DAILY [facility] Stop: 12/06/17 08:59 Last Admin: 10/07/17 09:27 Dose: 5 mg Fluoxetine HCl (Prozac) 10 mg PO DAILY [facility]IO PRN Reason: Protocol Stop: 12/03/17 08:59 Last Admin: 10/07/17 09:28 Dose: 10 mg Dextrose/Sodium Chloride (D5-0.9%Ns) 1,000 mls @ 40 mls/hr IV .Q24H [facility] Stop: 11/30/17 00:59 Last Admin: 10/06/17 15:42 Dose: 40 mls/hr Lactobacillus Rhamnosus (Culturelle 15b) 1 each PO DAILY [facility] Stop: 12/04/17 08:59 Last Admin: 10/07/17 09:28 Dose: 1 each Levofloxacin (Levaquin) 500 mg PO DAILY [facility] Stop: 12/03/17 08:59 Last Admin: 10/07/17 09:27 Dose: 500 mg Metronidazole (Flagyl) 500 mg PO BID [facility] Stop: 10/10/17 09:01 Last Admin: 10/07/17 09:27 Dose: 500 mg Miscellaneous (Probiotic Screen) 1 ea MC PRN PRN PRN Reason: PROTOCOL Stop: 12/03/17 15:50 Morphine Sulfate (Morphine) 2 mg IVP Q2H PRN PRN Reason: Abdominal Pain Stop: 11/30/17 00:39 Last Admin: 10/06/17 22:38 Dose: 2 mg Ondansetron HCl (Zofran) 4 mg IV Q8H PRN PRN Reason: Nausea / Vomiting Stop: 11/30/17 15:24 Zolpidem Tartrate (Ambien) 10 mg PO HS PRN PRN Reason: Insomnia Stop: 11/30/17 15:24 Last Admin: 10/06/17 22:38 Dose: 10 mg General: alert HEENT: NC/AT, PERRLA Neck: Supple Lungs: CTAB Cardiovascular: RRR, Normal S1, Normal S2 Abdomen: soft, non-tender, non-distended Neurological: alert, muscle weakness - Procedures Procedures: Procedures Procedure Code Date CYSTOSCOPY 07811 09/30/17 DILATION OF URETHRA WITH INTRALUMINAL DEVICE, ENDO [id number] 09/30/17 RECTUM SURGERY PROCEDURE 48695 09/30/17 RESECTION OF SIGMOID COLON, OPEN APPROACH [id number] 09/30/17 Internal Medicine Assmt/Plan - Assessment Assessment: abdominal pain perforated bowel s/p resection colostomy kidney stones hyponatremia thrombocytopenia - Plan Plan: LTAC eval pain mgmt incentive spirometry follow up labs in am continue current plan of care Nutritional Asmnt/Malnutr-PDOC - Dietary Evaluation Malnutrition Findings (Please click <Entered> for more info): Nutritional Asmnt/Malnutrition Start: 10/05/17 16: 21 Text: Status: Complete Freq: Document 10/05/17 16:21 HEN (Rec: 10/05/17 16:30 [email or web address]) Nutritional Asmnt/Malnutrition Patient General Information Nutritional Screening Moderate Risk Diagnosis perforated bowel Pertinent Medical Hx/Surgical Hx HTN, depression, d/p kidney surgery Subjective Information Pt had surgery on 10/01. Diet advanced to regular from 10/04 dinner. Pt seen lying in bed at time of visit, awake and alert. Pt stated he felt better, ate about 75% of lunch , tolerated regular food. Current Diet Order/ Nutrition Support regular Pertinent Medications d5-0.9%, culturelle, levaquin, flagyl, kcl Pertinent Labs 10/05 Na 142, K 3.2, Cl 109, BUN 11, Cr 0.8, Glucose 102, Ca 8.1, Alb 3.2 Nutritional Hx/Data Height 5 ft 10 in Height (Calculated Centimeters) 177.8 Current Weight (lbs) 192 lb Weight (Calculated Kilograms) 87.1 Weight (Calculated Grams) 41404.7 [place] Body Weight 166 % [place] Body Weight 116 Body Mass Index (BMI) 27.5 Weight Status Overweight GI Symptoms GI Symptoms None Last BM 10/04 x 3 Difficult in: None Skin Integrity/Comment: intact Current %PO Good (75-100%) Estimated Nutritional Goals Calories/Kcals/Kg 25-30 Kcals Calculated 2379-1478 Protein g/k-1.2 Protein Calculated 70-84 Fluid: ml 1875-2100ml (1ml/kcal) Nutritional Problem No current Nutrition Prob Problem N/A Intervention/Recommendation Comments 1. Continue with current diet as ordered. Encouraged to eat balanced meal, try to each few bites of each food. Pt verbalized understanding. 2. Monitor PO intake, wt, labs and skin integrity 3. F/U as moderate risk in 3-5 days, 10/08-10/10 Expected Outcomes/Goals Expected Outcomes/Goals 1. PO intake to meet at least 75% of nutritional needs. 2. Wt stability, skin to remain intact, labs to approach WNL.
--- NOTE | 2017-10-07 15:11 | Internal Medicine Prog Note ---
Internal Medicine Subjective - Subjective Service Date: 10/07/17 (DC SUMMARY [id number]) Patient is:: awake, verbal, interactive, in bed, talking Patient Complaints of:: bloated Per staff patient has:: no adverse event, poor oral intake, unstable gait, tolerating meds Internal Medicine Objective - Results Result Diagrams: 10/06/17 06:00 10/07/17 06:00 Recent Labs: Laboratory Last Values WBC 5.0 Th/cmm (4.8-10.8) 10/06/17 06:00 RBC 4.55 Mil/cmm (3.80-5.80) 10/06/17 06:00 Hgb 13.3 gm/dL (12-16) 10/06/17 06:00 Hct 39.5 % (41.0-60) L 10/06/17 06:00 MCV 86.8 fl (80-99) 10/06/17 06:00 MCH 29.2 pg (27.0-31.0) 10/06/17 06:00 MCHC Differential 33.6 pg (28.0-36.0) 10/06/17 06:00 RDW 13.2 % (11.5-20.0) 10/06/17 06:00 Plt Count 211 Th/cmm (150-400) 10/06/17 06:00 MPV 6.9 fl 10/06/17 06:00 Neutrophils % 65.0 % (40.0-80.0) 10/06/17 06:00 Band Neutrophils % 1 % (0-10) 10/05/17 05:50 Lymphocytes % 18.0 % (20.0-50.0) L 10/06/17 06:00 Monocytes % 8.8 % (2.0-10.0) 10/06/17 06:00 Eosinophils % 7.7 % (0.0-5.0) H 10/06/17 06:00 Basophils % 0.5 % (0.0-2.0) 10/06/17 06:00 Neutrophils (Manual) 61 % (40-80) 10/05/17 05:50 Lymphocytes 20 % (20-50) 10/05/17 05:50 Monocytes 5 % (2-10) 10/05/17 05:50 Eosinophils 13 % (0-5) H 10/05/17 05:50 Platelet Estimate ADEQUATE (NORMAL) 09/30/17 22:10 PT 10.3 SECONDS (9.5-11.5) 10/06/17 06:00 INR 0.99 (0.5-1.4) 10/06/17 06:00 PTT (Actin FS) 24.5 SECONDS (26.0-38.0) L 10/06/17 06:00 Sodium 140 mEq/L (136-145) 10/07/17 06:00 Potassium 3.8 mEq/L (3.5-5.1) 10/07/17 06:00 Chloride 108 mEq/L (98-107) H 10/07/17 06:00 Carbon Dioxide 26.6 mEq/L (21.0-31.0) 10/07/17 06:00 Anion Gap 9.2 (7.0-16.0) 10/07/17 06:00 BUN 14 mg/dL (7-25) 10/07/17 06:00 Creatinine 0.9 mg/dL (0.7-1.3) 10/07/17 06:00 Est GFR ( Amer) TNP 10/07/17 06:00 Est GFR (Non-Af Amer) TNP 10/07/17 06:00 BUN/Creatinine Ratio 15.6 10/07/17 06:00 Glucose 101 mg/dL (70-105) 10/07/17 06:00 POC Glucose 77 MG/DL (70 - 105) 10/06/17 12:33 Calcium 8.3 mg/dL (8.6-10.3) L 10/07/17 06:00 Magnesium 2.0 mg/dL (1.9-2.7) 10/07/17 06:00 Total Bilirubin 0.5 mg/dL (0.3-1.0) 10/07/17 06:00 AST 29 U/L (13-39) 10/07/17 06:00 ALT 23 U/L (7-52) 10/07/17 06:00 Alkaline Phosphatase 72 U/L (34-104) 10/07/17 06:00 B-Natriuretic Peptide 2060.0 pg/mL (5.0-100.0) H 10/05/17 05:50 Total Protein 5.7 gm/dL (6.0-8.3) L 10/07/17 06:00 Albumin 3.4 gm/dL (4.2-5.5) L 10/07/17 06:00 Globulin 2.3 gm/dL 10/07/17 06:00 Albumin/Globulin Ratio 1.5 (1.0-1.8) 10/07/17 06:00 Lipase 8 U/L (11-82) L 09/30/17 22:10 Urine Source RANDOM 10/01/17 06:06 Urine Color YELLOW 10/01/17 06:06 Urine Clarity CLEAR (CLEAR) 10/01/17 06:06 Urine pH 5.5 (4.6 - 8.0) 10/01/17 06:06 Ur Specific [place] 1.020 (1.005-1.030) 10/01/17 06:06 Urine Protein NEGATIVE mg/dL (NEGATIVE) 10/01/17 06:06 Urine Glucose (UA) NEGATIVE mg/dL (NEGATIVE) 10/01/17 06:06 Urine Ketones NEGATIVE mg/dL (NEGATIVE) 10/01/17 06:06 Urine Blood NEGATIVE (NEGATIVE) 10/01/17 06:06 Urine Nitrate NEGATIVE (NEGATIVE) 10/01/17 06:06 Urine Bilirubin NEGATIVE (NEGATIVE) 10/01/17 06:06 Urine Urobilinogen 0.2 E.U./dL (0.2 - 1.0) 10/01/17 06:06 Ur Leukocyte Esterase NEGATIVE (NEGATIVE) 10/01/17 06:06 Urine RBC 0-2 /hpf (0-5) H 10/01/17 06:06 Urine WBC 0-2 /hpf (0-5) 10/01/17 06:06 Ur Epithelial Cells FEW /lpf (FEW) 10/01/17 06:06 Urine Bacteria OCCASIONAL /hpf (NONE SEEN) 10/01/17 06:06 Urine Mucus FEW /lpf (FEW) 10/01/17 06:06 - Physical Exam Vitals and I&O: Vital Signs Temp 97.7 F 10/07/17 12:00 Pulse 67 10/07/17 12:00 Resp 18 10/07/17 12:00 BP 171/84 10/07/17 12:00 Pulse Ox 100 10/07/17 12:00 Intake & Output 01/24/18 01/25/18 01/25/18 18:59 06:59 18:59 Intake Total 1132 500 720 Output Total 225 54 Balance 907 500 666 Weight (lbs) 192 lb 6.4 oz 192 lb 192 lb Intake: Intake, IV Amount 882 D5-0.9%Ns 1,000 ml @ 40 882 mls/hr IV .Q24H [facility] Rx#: [id number] Oral 250 500 720 Output: Drainage 50 Left Abdomen 50 Urine 3 Stool 1 Other 225 Other: # Voids 4 4 4 # Bowel Movements 0 0 Stool Characteristics Soft Soft Soft Liquid Liquid Brown Brown Brown Green Green Green Active Medications: Current Medications Acetaminophen (Tylenol) 650 mg PO Q4H PRN PRN Reason: Pain Or Fever above 101 Stop: 11/30/17 15:24 Albuterol/Ipratropium (Duoneb Neb) 3 ml HHN Q2HRT PRN PRN Reason: Shortness of Breath or Wheeze Stop: 11/30/17 15:31 Amlodipine Besylate (Norvasc) 5 mg PO DAILY [facility] Stop: 12/06/17 08:59 Last Admin: 10/07/17 09:27 Dose: 5 mg Fluoxetine HCl (Prozac) 10 mg PO DAILY [facility] PRN Reason: Protocol Stop: 12/03/17 08:59 Last Admin: 10/07/17 09:28 Dose: 10 mg Lactobacillus Rhamnosus (Culturelle 15b) 1 each PO DAILY [facility] Stop: 12/04/17 08:59 Last Admin: 10/07/17 09:28 Dose: 1 each Levofloxacin (Levaquin) 500 mg PO DAILY [facility] Stop: 12/03/17 08:59 Last Admin: 10/07/17 09:27 Dose: 500 mg Metronidazole (Flagyl) 500 mg PO BID [facility] Stop: 10/10/17 09:01 Last Admin: 10/07/17 09:27 Dose: 500 mg Miscellaneous (Probiotic Screen) 1 ea MC PRN PRN PRN Reason: PROTOCOL Stop: 12/03/17 15:50 Morphine Sulfate (Morphine) 2 mg IVP Q2H PRN PRN Reason: Abdominal Pain Stop: 11/30/17 00:39 Last Admin: 10/06/17 22:38 Dose: 2 mg Zolpidem Tartrate (Ambien) 10 mg PO HS PRN PRN Reason: Insomnia Stop: 11/30/17 15:24 Last Admin: 10/06/17 22:38 Dose: 10 mg General: alert HEENT: NC/AT, PERRLA Neck: Supple Lungs: CTAB Cardiovascular: RRR, Normal S1, Normal S2 Abdomen: soft, non-tender, non-distended Neurological: alert, muscle weakness - Procedures Procedures: Procedures Procedure Code Date CYSTOSCOPY 73725 09/30/17 DILATION OF URETHRA WITH INTRALUMINAL DEVICE, ENDO [id number] 09/30/17 RECTUM SURGERY PROCEDURE [id number] 09/30/17 RESECTION OF SIGMOID COLON, OPEN APPROACH [id number] 09/30/17 Internal Medicine Assmt/Plan - Assessment Assessment: abdominal pain perforated bowel s/p resection colostomy kidney stones hyponatremia thrombocytopenia - Plan Plan: LTAC eval pain mgmt incentive spirometry follow up labs in am continue current plan of care Nutritional Asmnt/Malnutr-PDOC - Dietary Evaluation Malnutrition Findings (Please click <Entered> for more info): Nutritional Asmnt/Malnutrition Start: 10/05/17 16: 21 Text: Status: Complete Freq: Document 10/05/17 16:21 RODRIGO (Rec: 10/05/17 16:30 HEN [email or web address]) Nutritional Asmnt/Malnutrition Patient General Information Nutritional Screening Moderate Risk Diagnosis perforated bowel Pertinent Medical Hx/Surgical Hx HTN, depression, d/p kidney surgery Subjective Information Pt had surgery on 10/01. Diet advanced to regular from 10/04 dinner. Pt seen lying in bed at time of visit, awake and alert. Pt stated he felt better, ate about 75% of lunch , tolerated regular food. Current Diet Order/ Nutrition Support regular Pertinent Medications d5-0.9%, culturelle, levaquin, flagyl, kcl Pertinent Labs 10/05 Na 142, K 3.2, Cl 109, BUN 11, Cr 0.8, Glucose 102, Ca 8.1, Alb 3.2 Nutritional Hx/Data Height 5 ft 10 in Height (Calculated Centimeters) 177.8 Current Weight (lbs) 192 lb Weight (Calculated Kilograms) 87.1 Weight (Calculated Grams) 20711.7 [place] Body Weight 166 % [place] Body Weight 116 Body Mass Index (BMI) 27.5 Weight Status Overweight GI Symptoms GI Symptoms None Last BM 10/04 x 3 Difficult in: None Skin Integrity/Comment: intact Current %PO Good (75-100%) Estimated Nutritional Goals Calories/Kcals/Kg 25-30 Kcals Calculated 1752-6320 Protein g/k-1.2 Protein Calculated 70-84 Fluid: ml 1875-2100ml (1ml/kcal) Nutritional Problem No current Nutrition Prob Problem N/A Intervention/Recommendation Comments 1. Continue with current diet as ordered. Encouraged to eat balanced meal, try to each few bites of each food. Pt verbalized understanding. 2. Monitor PO intake, wt, labs and skin integrity 3. F/U as moderate risk in 3-5 days, 10/08-10/10 Expected Outcomes/Goals Expected Outcomes/Goals 1. PO intake to meet at least 75% of nutritional needs. 2. Wt stability, skin to remain intact, labs to approach WNL.
--- NOTE | 2017-10-07 18:10 | Cardiology ---
10/06/[address] Rojas. M-MODE ECHOCARDIOGRAM: Mitral valve, anterior leaflet of mitral valve shows normal excursion, EF velocity. Posterior leaflet of the mitral valve shows normal excursion. Left ventricular posterior wall shows increased thickness, normal excursion. Interventricular septum shows increased thickness, normal excursion, hypertrophy of the left ventricle, ejection fraction 55%. Left atrium normal. Aortic root shows normal dimension, normal excursion of aortic leaflets. CONCLUSION: Hypertrophy of the left ventricle, ejection fraction 55%. 2D ECHO: Long axis view showed normal-sized left ventricle with hypertrophy of the left ventricle. Left atrium normal. Aortic root shows normal dimension, normal excursion of aortic leaflets. Short axis view of mitral valve normal. Short axis view of aortic valve normal. Apical four chamber view showed normal sized left ventricle with hypertrophy of the left ventricle. Left atrium normal. Right ventricular cavity, right atrium normal. No pericardial effusion. CONCLUSION: Hypertrophy of the left ventricle, ejection fraction 55%. Doppler study shows mild mitral regurgitation, tricuspid regurgitation, pulmonary regurgitation, aortic regurgitation with pressure halftime of 850 milliseconds. Right ventricular systolic pressure 37 mmHg. JOB# [id number]
--- NOTE | 2017-10-07 19:38 | Discharge Summary ---
DATE OF DISCHARGE: 10/07/[address] Vadim Rojas. DISCHARGE DIAGNOSES: Abdominal pain, perforated bowel, status post resection, colostomy, status post stent placement, kidney stones, hyponatremia, thrombocytopenia. HISTORY OF PRESENT ILLNESS: This is a 76-year-old male with a history of high blood pressure, not on medication as well as depression, was admitted secondary to acute onset of his abdominal pain and discomfort. The patient got dizzy just about to pass out. The patient was brought in the ER, CT showed perforated bowel. The patient was taken to the Emergency Room for surgery. PHYSICAL EXAMINATION: GENERAL: The patient is well developed, well nourished, no acute distress. VITAL SIGNS: Stable. HEENT: Head: Normocephalic, atraumatic. NECK: Supple. No mass. LUNGS: Clear bilaterally. HEART: Regular rate and rhythm. ABDOMEN: Soft and nontender. During the hospital stay, the patient was admitted to the telemetry unit. The patient had a surgical consultation as well as a Urology consultation. On 10/01/2017, the patient had exploratory laparotomy with resection of the sigmoid colon, Gerald's pouch diverting colostomy and abdominal washout. The patient tolerated the procedure well. On 10/06/2017, the patient had a cystoscopy right retrograde pyelogram with injection of contrast and fluoroscopy injection of double J stents of the right kidney. The patient tolerated the procedure well. The patient was also being followed by Infectious Disease for the IV antibiotics. The patient's WBCs have been within normal limits. The patient has also been receiving physical therapy. The patient to be discharged to [facility] for physical therapy. The patient to follow up with Dr. Graf in [address] Cotton in 2 weeks the urologist. CONDITION UPON DISCHARGE: Fair. DISPOSITION: [facility]. JOB# [id number]
== END 2017-10-07 18:49 | DRG 329 ==
LOC: ER 21:37 → TELE 23:40 → MSI 10-04 13:46
PROVIDERS: ADMIT Internal Medicine; ATTEND Internal Medicine
PROC: 0DBN0ZZ Excision of Sigmoid Colon, Open Approach (ICD-10-PCS; principal; 2017-10-01)
PROC: 0D1K0Z4 Bypass Ascending Colon to Cutaneous, Open Approach (ICD-10-PCS; 2017-10-01)
PROC: 0T738DZ Dilation of Right Kidney Pelvis with Intraluminal Device, Via Natural or Artificial Opening Endoscopic (ICD-10-PCS; 2017-10-06)
DX: K57.20 Diverticulitis of large intestine with perforation and abscess without bleeding (principal); I50.33 Acute on chronic diastolic (congestive) heart failure; D69.6 Thrombocytopenia, unspecified; N13.0 Hydronephrosis with ureteropelvic junction obstruction; E87.1 Hypo-osmolality and hyponatremia; N13.8 Other obstructive and reflux uropathy; N20.2 Calculus of kidney with calculus of ureter; F32.9 Major depressive disorder, single episode, unspecified; N40.1 Benign prostatic hyperplasia with lower urinary tract symptoms; Z88.2 Allergy status to sulfonamides; Z88.8 Allergy status to other drugs, medicaments and biological substances; Z95.1 Presence of aortocoronary bypass graft; Z82.49 Family history of ischemic heart disease and other diseases of the circulatory system; Z93.3 Colostomy status
CPT/HCPCS: 36415-UA; 71045-TC; 76000-TC; 78707-TC; 80048-TC; 80053-TC; 81001-TC; 82948-90; 83690-TC; 83735-TC; 83880-TC; 85007-TC; 85025-TC; 85027-TC; 85610-TC; 85730-TC; 87070-90; 87075-90; 87205-90; 90799; 93005; 94640; 94760; 96372; 96375; 97530; A9562; J1170; J1644; J1885; J1940; J2270; J2405; J2543; J2704; J2710; J3010; J3475; J7030; J7042; Q9967; V2790; X3904; X5716; X6258; Z7610